=== PATIENT | male | born 1945 | race Caucasian/White ===

== ENCOUNTER 2020-09-03 08:23 | Outpatient (REF) | payer MEDICARE, OTHER, SELFPAY ==
[2020-09-03 11:30] LABS: Hemoglobin 14.8 g/dl (14.0-18.0); Mean Corpuscular HGB Conc 32.9 g/dl (31.0-36.0); Mean Corpuscular Hemoglobin 31.5 pg (27.0-33.0); Mean Corpuscular Volume 95.7 fL (80-98); Mean Platelet Volume 11.5 fL (9.4-12.4); Platelet Count 232 X10*3/uL (160-400); Red Cell Distribution Width 13.8 % (11.0-16.0); White Blood Count 5.2 X10*3/uL (4.8-10.8)
[2020-09-03 11:50] LABS: Estimated Average Glucose 146 mg/dL; Hemoglobin A1c % 6.7 %
[2020-09-03 12:04] LABS: Alanine Aminotransferase 8 U/L (0-40); Albumin Level 3.9 g/dL (3.5-5.0); Alkaline Phosphatase 64 U/L (39-117); Anion Gap 12 (12-20); Aspartate Amino Transferase 12 U/L (5-37); Bilirubin Total 0.4 mg/dL (0.0-1.0); Blood Urea Nitrogen 22 mg/dL (9-16); Calcium 8.8 mg/dL (8.4-10.2); Carbon Dioxide 30 mmol/L (22-29); Chloride 101 mmol/L (96-108); Cholesterol 162 mg/dL; Estimated Glomerular Filt Rate 49; Glucose Fasting 117 mg/dL (60-99); HDL Cholesterol 44 mg/dL; LDL Cholesterol Calculated 102 mg/dl; Potassium 4.8 mmol/l (3.3-5.1); Sodium 138 mmol/L (135-145); Total Protein 6.6 g/dL (6.5-8.0); Triglycerides 80 mg/dL
[2020-09-03 12:18] LABS: Creatinine Urine 81.43 mg/dL; Microalbum/Creatinine Ratio Ur 117.8 ug/mg cr
== END 2020-09-03 08:24 | disposition home or self-care (01) ==
LOC: HO.HMGCLDS 08:23
PROVIDERS: PCP Internal Medicine; Visit Provider Internal Medicine
DX: J42 Unspecified chronic bronchitis (principal); I12.9 Hypertensive chronic kidney disease with stage 1 through stage 4 chronic kidney disease, or unspecified chronic kidney disease; E11.22 Type 2 diabetes mellitus with diabetic chronic kidney disease; N18.30 Chronic kidney disease, stage 3 unspecified; E78.2 Mixed hyperlipidemia
CPT/HCPCS: 36415; 80053; 80061; 82043; 83036; 85027

== ENCOUNTER 2021-02-20 08:21 | Outpatient (REF) | payer MEDICARE, OTHER, SELFPAY ==
[2021-02-20 11:15] LABS: MANUAL DIFF FLAG NO
[2021-02-20 11:27] LABS: Basophils Absolute Auto 0.1 X10*3/uL (0.0-0.2); Eosinophils Absolute Auto 0.4 X10*3/uL (0.0-0.4); Eosinophils Percent Auto 6.4 % (0-4); Hematocrit 44.7 % (42-52); Hemoglobin 14.5 g/dl (14.0-18.0); Imm Gran Abs Auto 0.02 X10*3/uL (0.00-0.03); Imm Gran Pct Auto 0.3 % (0.0-0.4); Lymphocytes Absolute Auto 0.9 X10*3/uL (1.2-4.9); Lymphocytes Percent Auto 14.4 % (20-40); Mean Corpuscular HGB Conc 32.4 g/dl (31.0-36.0); Mean Corpuscular Hemoglobin 31.1 pg (27.0-33.0); Mean Corpuscular Volume 95.9 fL (80-98); Mean Platelet Volume 11.3 fL (9.4-12.4); Monocytes Absolute Auto 0.8 X10*3/uL (0.1-1.2); Monocytes Percent Auto 13.2 % (2-11); Neutrophils Absolute Auto 4.1 X10*3/uL (2.0-8.3); Neutrophils Percent Auto 64.7 % (45-73); Platelet Count 226 X10*3/uL (160-400); Red Blood Count 4.66 X10*6/uL (4.60-5.80); Red Cell Distribution Width 14.3 % (11.0-16.0); White Blood Count 6.3 X10*3/uL (4.8-10.8)
[2021-02-20 12:12] LABS: Alanine Aminotransferase 7 U/L (0-40); Albumin Level 3.9 g/dL (3.5-5.0); Alkaline Phosphatase 57 U/L (39-117); Anion Gap 13 (12-20); Aspartate Amino Transferase 12 U/L (5-37); Bilirubin Total 0.6 mg/dL (0.0-1.0); Blood Urea Nitrogen 28 mg/dL (9-16); Calcium 9.6 mg/dL (8.4-10.2); Carbon Dioxide 28 mmol/L (22-29); Chloride 103 mmol/L (96-108); Cholesterol 171 mg/dL; Estimated Glomerular Filt Rate > 60; Glucose Fasting 133 mg/dL (60-99); HDL Cholesterol 47 mg/dL; LDL Cholesterol Calculated 104 mg/dl; Potassium 5.1 mmol/L (3.3-5.1); Sodium 139 mmol/L (135-145); Total Protein 6.7 g/dL (6.5-8.0); Triglycerides 100 mg/dL
[2021-02-20 12:23] LABS: Estimated Average Glucose 148 mg/dL; Hemoglobin A1c % 6.8 %
[2021-02-20 12:37] LABS: Creatinine Urine 80.36 mg/dL; Microalbum/Creatinine Ratio Ur 172.9 ug/mg cr
== END 2021-02-20 08:22 | disposition home or self-care (01) ==
LOC: HO.HMGCLDS 08:21
PROVIDERS: PCP Internal Medicine; Visit Provider Internal Medicine
DX: I12.9 Hypertensive chronic kidney disease with stage 1 through stage 4 chronic kidney disease, or unspecified chronic kidney disease (principal); E11.22 Type 2 diabetes mellitus with diabetic chronic kidney disease; N18.30 Chronic kidney disease, stage 3 unspecified; J44.9 Chronic obstructive pulmonary disease, unspecified
CPT/HCPCS: 36415; 80053; 80061; 82043; 83036; 85025

== ENCOUNTER 2021-07-24 08:17 | Outpatient (REF) | payer MEDICARE, OTHER, SELFPAY ==
[2021-07-24 11:34] LABS: Estimated Average Glucose 151 mg/dL; Hemoglobin A1c % 6.9 %
[2021-07-24 11:59] LABS: Alanine Aminotransferase 12 U/L (0-40); Albumin Level 3.8 g/dL (3.5-5.0); Alkaline Phosphatase 65 U/L (39-117); Anion Gap 10 (12-20); Aspartate Amino Transferase 11 U/L (5-37); Bilirubin Total 0.6 mg/dL (0.0-1.0); Blood Urea Nitrogen 20 mg/dL (9-16); Carbon Dioxide 31 mmol/L (22-29); Chloride 105 mmol/L (96-108); Estimated Glomerular Filt Rate > 60; Glucose Fasting 126 mg/dL (60-99); Potassium 4.4 mmol/L (3.3-5.1); Sodium 142 mmol/L (135-145); Total Protein 6.4 g/dL (6.5-8.0)
== END 2021-07-24 08:18 | disposition home or self-care (01) ==
LOC: HO.HMGCLDS 08:17
PROVIDERS: PCP Internal Medicine; Visit Provider Internal Medicine
DX: I12.9 Hypertensive chronic kidney disease with stage 1 through stage 4 chronic kidney disease, or unspecified chronic kidney disease (principal); N18.30 Chronic kidney disease, stage 3 unspecified; E11.22 Type 2 diabetes mellitus with diabetic chronic kidney disease; J44.9 Chronic obstructive pulmonary disease, unspecified
CPT/HCPCS: 36415; 80053; 83036

== ENCOUNTER 2021-09-02 10:50 | Outpatient (REF) | payer MEDICARE, OTHER, SELFPAY ==
[2021-09-02 14:24] LABS: Anion Gap 12 (12-20); Blood Urea Nitrogen 29 mg/dL (9-16); Calcium 9.5 mg/dL (8.4-10.2); Carbon Dioxide 29 mmol/L (22-29); Chloride 105 mmol/L (96-108); Estimated Glomerular Filt Rate > 60; Glucose Random 236 mg/dL (60-115); Potassium 4.4 mmol/L (3.3-5.1); Sodium 142 mmol/L (135-145)
== END 2021-09-02 10:51 | disposition home or self-care (01) ==
LOC: HO.HMGCLDS 10:50
PROVIDERS: PCP Internal Medicine; Visit Provider Internal Medicine
DX: E11.9 Type 2 diabetes mellitus without complications (principal); N18.30 Chronic kidney disease, stage 3 unspecified
CPT/HCPCS: 36415; 80048

== ENCOUNTER 2021-11-17 08:20 | Outpatient (REF) | payer MEDICARE, OTHER, SELFPAY ==
[2021-11-17 11:35] LABS: Hematocrit 46.6 % (42.0-52.0); Hemoglobin 15.1 g/dl (14.0-18.0); Mean Corpuscular HGB Conc 32.4 g/dl (31.0-36.0); Mean Corpuscular Hemoglobin 31.3 pg (27.0-33.0); Mean Corpuscular Volume 96.5 fL (80.0-98.0); Mean Platelet Volume 11.5 fL (9.4-12.4); Platelet Count 257 X10*3/uL (160-400); Red Blood Count 4.83 X10*6/uL (4.60-5.80); Red Cell Distribution Width 13.7 % (11.0-16.0); White Blood Count 6.2 X10*3/uL (4.8-10.8)
[2021-11-17 12:15] LABS: Alanine Aminotransferase 16 U/L (0-40); Albumin Level 3.7 g/dL (3.5-5.0); Alkaline Phosphatase 56 U/L (39-117); Anion Gap 12 (12-20); Aspartate Amino Transferase 12 U/L (5-37); Bilirubin Total 0.5 mg/dL (0.0-1.0); Blood Urea Nitrogen 26 mg/dL (9-16); Calcium 9.6 mg/dL (8.4-10.2); Carbon Dioxide 31 mmol/L (22-29); Chloride 102 mmol/L (96-108); Estimated Glomerular Filt Rate 59; Glucose Fasting 130 mg/dL (60-99); Sodium 140 mmol/L (135-145); Total Protein 6.5 g/dL (6.5-8.0)
[2021-11-17 12:18] LABS: Estimated Average Glucose 154 mg/dL
[2021-11-17 12:21] LABS: Creatinine Urine 78.25 mg/dL; Microalbum/Creatinine Ratio Ur 187.8 ug/mg cr
[2021-11-17 12:22] LABS: Prostate Specific Antigen Scr 4.42 ng/mL (<0.05-4.0)
== END 2021-11-17 08:21 | disposition home or self-care (01) ==
LOC: HO.HMGCLDS 08:20
PROVIDERS: PCP Internal Medicine; Visit Provider Internal Medicine
DX: E11.22 Type 2 diabetes mellitus with diabetic chronic kidney disease (principal); I12.9 Hypertensive chronic kidney disease with stage 1 through stage 4 chronic kidney disease, or unspecified chronic kidney disease; N18.30 Chronic kidney disease, stage 3 unspecified; J44.9 Chronic obstructive pulmonary disease, unspecified; Z12.5 Encounter for screening for malignant neoplasm of prostate
CPT/HCPCS: 36415; 80053; 82043; 83036; 84153; 85027

== ENCOUNTER 2022-01-19 11:10 | Outpatient (REF) | payer MEDICARE, OTHER, SELFPAY ==
--- NOTE | ~2022-01-19 | US_ITS ---
EXAMINATION: US EXTRACRANIAL CAROTID DUPLEX, BILATERAL CLINICAL INFORMATION: Hypertension. Diabetes. COMPARISON: None TECHNIQUE: Real-time ultrasound and Doppler techniques (integrating B-mode 2-D vascular images, Doppler spectral analysis and color-flow Doppler imaging) were utilized to interrogate the extracranial carotid arteries, the vertebral arteries and proximal subclavian arteries bilaterally. The degree of stenosis is determined by criteria similar to NASCET. FINDINGS: Right Side: 1. There is minimal atherosclerotic plaque seen in the bifurcation/proximal ICA region. 2. The common carotid artery PSV proximally is 87 cm/s and distally 57 cm/s. 3. The proximal internal carotid artery velocities are 79 cm/s systolic and 22 cm/s diastolic. 4. The proximal external carotid artery PSV is 89 cm/s. 5. The vertebral artery shows antegrade flow. 6. The subclavian artery waveforms are normal. Left Side: 1. There is minimal atherosclerotic plaque seen in the bifurcation/proximal ICA region. 2. The common carotid artery PSV proximally is 80 cm/s and distally 76 cm/s. 3. The proximal internal carotid artery velocities are 56 cm/s systolic and 12 cm/s diastolic. 4. The proximal external carotid artery PSV is 98 cm/s. 5. The vertebral artery shows antegrade flow. 6. The subclavian artery waveforms are normal. US/US carotid duplex BI IMPRESSION: 1. RIGHT: Minimal, non-hemodynamically significant stenosis of the proximal right internal carotid artery corresponding to a 0-49% stenosis by velocity criteria. 2. LEFT: Minimal, non-hemodynamically significant stenosis of the proximal left internal carotid artery corresponding to a 0-49% stenosis by velocity criteria.
== END 2022-01-19 11:11 | disposition home or self-care (01) ==
LOC: HO.US 11:10
PROVIDERS: Visit Provider Internal Medicine
DX: R09.89 Other specified symptoms and signs involving the circulatory and respiratory systems (principal)
CPT/HCPCS: 93880

== ENCOUNTER 2022-03-26 08:51 | Outpatient (REF) | payer MEDICARE, OTHER, SELFPAY ==
--- NOTE | ~2022-03-26 | US_ITS ---
EXAMINATION: US VENOUS ULTRASOUND WITH DOPPLER LOWER EXTREMITY, RIGHT CLINICAL INFORMATION: Right leg swelling. COMPARISON: None TECHNIQUE: Ultrasound of the deep veins is performed from the hip to the calf with compression sonography and color and pulse Doppler assessment. Spectral analysis with color-flow imaging is performed. FINDINGS: There is normal venous compression and respiratory variation and augmented flow. The visualized common femoral vein, superficial femoral vein, profunda femoral vein, popliteal vein, and the trifurcation region shows no evidence of deep venous thrombosis. No Farah's cyst is seen. US/US venous duplex LE RT IMPRESSION: No DVT demonstrated in the right lower extremity.
== END 2022-03-26 08:52 | disposition home or self-care (01) ==
LOC: HO.HMGCX 08:51
PROVIDERS: Visit Provider Internal Medicine
DX: M79.661 Pain in right lower leg (principal); M79.89 Other specified soft tissue disorders
CPT/HCPCS: 93971

== ENCOUNTER 2022-03-31 08:31 | Outpatient (REF) | payer MEDICARE, OTHER, SELFPAY ==
[2022-03-31 11:16] LABS: MANUAL DIFF FLAG NO
[2022-03-31 11:23] LABS: Basophils Absolute Auto 0.1 X10*3/uL (0.0-0.2); Basophils Percent Auto 1.1 % (0-2); Eosinophils Absolute Auto 0.5 X10*3/uL (0.0-0.4); Eosinophils Percent Auto 7.7 % (0-4); Hematocrit 47.9 % (42.0-52.0); Hemoglobin 15.2 g/dl (14.0-18.0); Imm Gran Abs Auto 0.02 X10*3/uL (0.00-0.03); Imm Gran Pct Auto 0.3 % (0.0-0.4); Lymphocytes Absolute Auto 0.9 X10*3/uL (1.2-4.9); Lymphocytes Percent Auto 14.2 % (20-40); Mean Corpuscular HGB Conc 31.7 g/dl (31.0-36.0); Mean Corpuscular Hemoglobin 30.2 pg (27.0-33.0); Mean Corpuscular Volume 95.2 fL (80.0-98.0); Monocytes Absolute Auto 0.9 X10*3/uL (0.1-1.2); Monocytes Percent Auto 13.4 % (2-11); Neutrophils Absolute Auto 4.1 x10*3/uL (2.0-8.3); Neutrophils Percent Auto 63.3 % (45-73); Platelet Count 208 X10*3/uL (160-400); Red Blood Count 5.03 X10*6/uL (4.60-5.80); Red Cell Distribution Width 14.6 % (11.0-16.0); White Blood Count 6.5 X10*3/uL (4.8-10.8)
[2022-03-31 11:35] LABS: Estimated Average Glucose 160 mg/dL; Hemoglobin A1c % 7.2 %
[2022-03-31 11:39] LABS: Alanine Aminotransferase 13 U/L (0-40); Alkaline Phosphatase 62 U/L (39-117); Anion Gap 11 (12-20); Aspartate Amino Transferase 16 U/L (5-37); Bilirubin Total 0.6 mg/dL (0.0-1.0); Blood Urea Nitrogen 25 mg/dL (9-16); Carbon Dioxide 32 mmol/L (22-29); Chloride 102 mmol/L (96-108); Estimated Glomerular Filt Rate > 60; Glucose Fasting 141 mg/dL (60-99); Sodium 140 mmol/L (135-145); Total Protein 6.8 g/dL (6.5-8.0); Uric Acid 6.5 mg/dL (3.4-7.0)
[2022-03-31 11:51] LABS: B Type Natriuretic Peptide 23 pg/mL (<100)
== END 2022-03-31 08:32 | disposition home or self-care (01) ==
LOC: HO.HMGCLDS 08:31
PROVIDERS: PCP Internal Medicine; Visit Provider Internal Medicine
DX: J44.9 Chronic obstructive pulmonary disease, unspecified (principal); I12.9 Hypertensive chronic kidney disease with stage 1 through stage 4 chronic kidney disease, or unspecified chronic kidney disease; N18.30 Chronic kidney disease, stage 3 unspecified; E11.22 Type 2 diabetes mellitus with diabetic chronic kidney disease
CPT/HCPCS: 36415; 80053; 83036; 83880; 84550; 85025

== ENCOUNTER 2022-09-17 08:07 | Outpatient (REF) | payer MEDICARE, OTHER, SELFPAY ==
[2022-09-17 11:21] LABS: MANUAL DIFF FLAG NO
[2022-09-17 11:39] LABS: Basophils Absolute Auto 0.1 X10*3/uL (0.0-0.2); Basophils Percent Auto 1.2 % (0-2); Eosinophils Absolute Auto 0.4 X10*3/uL (0.0-0.4); Eosinophils Percent Auto 6.4 % (0-4); Hematocrit 49.6 % (42.0-52.0); Imm Gran Abs Auto 0.03 X10*3/uL (0.00-0.03); Imm Gran Pct Auto 0.5 % (0.0-0.4); Lymphocytes Percent Auto 14.8 % (20-40); Mean Corpuscular HGB Conc 32.3 g/dl (31.0-36.0); Mean Corpuscular Hemoglobin 31.3 pg (27.0-33.0); Mean Corpuscular Volume 96.9 fL (80.0-98.0); Mean Platelet Volume 11.7 fL (9.4-12.4); Monocytes Absolute Auto 0.8 X10*3/uL (0.1-1.2); Monocytes Percent Auto 12.5 % (2-11); Neutrophils Absolute Auto 4.2 x10*3/uL (2.0-8.3); Neutrophils Percent Auto 64.6 % (45-73); Platelet Count 189 X10*3/uL (160-400); Red Blood Count 5.12 X10*6/uL (4.60-5.80); White Blood Count 6.4 X10*3/uL (4.8-10.8)
[2022-09-17 11:52] LABS: Estimated Average Glucose 160 mg/dL; Hemoglobin A1c % 7.2 %
[2022-09-17 12:09] LABS: Creatinine Urine 53.08 mg/dL; Microalbum/Creatinine Ratio Ur 263.7 ug/mg cr
[2022-09-17 12:11] LABS: Alanine Aminotransferase 8 U/L (0-40); Albumin Level 3.9 g/dL (3.5-5.0); Alkaline Phosphatase 79 U/L (39-117); Anion Gap 13 (12-20); Aspartate Amino Transferase 12 U/L (5-37); Bilirubin Total 0.4 mg/dL (0.0-1.0); Blood Urea Nitrogen 32 mg/dL (9-16); Calcium 9.5 mg/dL (8.4-10.2); Carbon Dioxide 30 mmol/L (22-29); Chloride 104 mmol/L (96-108); Cholesterol 179 mg/dL; Estimated Glomerular Filt Rate 58; Glucose Fasting 149 mg/dL (60-99); HDL Cholesterol 53 mg/dL; LDL Cholesterol Calculated 111 mg/dl; Sodium 142 mmol/L (135-145); Total Protein 6.8 g/dL (6.5-8.0); Triglycerides 75 mg/dL
[2022-09-17 12:18] LABS: PSA,Total (Free>4and<10) 3.23 ng/mL (0.00-4.00)
== END 2022-09-17 08:08 | disposition home or self-care (01) ==
LOC: HO.HMGCLDS 08:07
PROVIDERS: PCP Internal Medicine; Visit Provider Internal Medicine
DX: Z12.5 Encounter for screening for malignant neoplasm of prostate (principal); J44.9 Chronic obstructive pulmonary disease, unspecified; I12.9 Hypertensive chronic kidney disease with stage 1 through stage 4 chronic kidney disease, or unspecified chronic kidney disease; E11.22 Type 2 diabetes mellitus with diabetic chronic kidney disease; N18.30 Chronic kidney disease, stage 3 unspecified
CPT/HCPCS: 36415; 80053; 80061; 82043; 83036; 84153; 85025

== ENCOUNTER 2023-01-18 07:54 | Outpatient (REF) | payer MEDICARE, OTHER, SELFPAY ==
[2023-01-18 11:15] LABS: MANUAL DIFF FLAG NO
[2023-01-18 11:40] LABS: Basophils Absolute Auto 0.1 X10*3/uL (0.0-0.2); Basophils Percent Auto 1.1 % (0-2); Eosinophils Absolute Auto 0.5 X10*3/uL (0.0-0.4); Eosinophils Percent Auto 7.6 % (0-4); Hematocrit 49.5 % (42.0-52.0); Hemoglobin 15.7 g/dl (14.0-18.0); Imm Gran Abs Auto 0.02 X10*3/uL (0.00-0.03); Imm Gran Pct Auto 0.3 % (0.0-0.4); Lymphocytes Absolute Auto 1.2 X10*3/uL (1.2-4.9); Lymphocytes Percent Auto 18.5 % (20-40); Mean Corpuscular HGB Conc 31.7 g/dl (31.0-36.0); Mean Corpuscular Hemoglobin 31.5 pg (27.0-33.0); Mean Corpuscular Volume 99.2 fL (80.0-98.0); Mean Platelet Volume 11.8 fL (9.4-12.4); Monocytes Absolute Auto 0.9 X10*3/uL (0.1-1.2); Monocytes Percent Auto 14.2 % (2-11); Neutrophils Absolute Auto 3.7 x10*3/uL (2.0-8.3); Neutrophils Percent Auto 58.3 % (45-73); Platelet Count 181 X10*3/uL (160-400); Red Blood Count 4.99 X10*6/uL (4.60-5.80); Red Cell Distribution Width 14.7 % (11.0-16.0); White Blood Count 6.3 X10*3/uL (4.8-10.8)
[2023-01-18 11:55] LABS: Estimated Average Glucose 151 mg/dL; Hemoglobin A1c % 6.9 %
[2023-01-18 12:14] LABS: Alanine Aminotransferase 10 U/L (0-40); Albumin Level 3.7 g/dL (3.5-5.0); Alkaline Phosphatase 73 U/L (39-117); Anion Gap 13 (12-20); Aspartate Amino Transferase 12 U/L (5-37); Bilirubin Total 0.5 mg/dL (0.0-1.0); Blood Urea Nitrogen 26 mg/dL (9-16); Calcium 9.2 mg/dL (8.4-10.2); Carbon Dioxide 31 mmol/L (22-29); Chloride 104 mmol/L (96-108); Estimated Glomerular Filt Rate > 60; Glucose Fasting 124 mg/dL (60-99); Potassium 4.6 mmol/L (3.3-5.1); Sodium 143 mmol/L (135-145); Total Protein 6.4 g/dL (6.5-8.0)
== END 2023-01-18 07:55 | disposition home or self-care (01) ==
LOC: HO.HMGCLDS 07:54
PROVIDERS: PCP Internal Medicine; Visit Provider Internal Medicine
DX: I12.9 Hypertensive chronic kidney disease with stage 1 through stage 4 chronic kidney disease, or unspecified chronic kidney disease (principal); E11.22 Type 2 diabetes mellitus with diabetic chronic kidney disease; N18.30 Chronic kidney disease, stage 3 unspecified
CPT/HCPCS: 36415; 80053; 83036; 85025

== ENCOUNTER 2023-07-21 07:38 | Outpatient (REF) | payer MEDICARE, OTHER, SELFPAY ==
[2023-07-21 11:15] LABS: MANUAL DIFF FLAG NO
[2023-07-21 11:34] LABS: Basophils Absolute Auto 0.1 X10*3/uL (0.0-0.2); Basophils Percent Auto 1.1 % (0-2); Eosinophils Absolute Auto 0.4 X10*3/uL (0.0-0.4); Eosinophils Percent Auto 5.6 % (0-4); Hematocrit 50.9 % (42.0-52.0); Hemoglobin 16.1 g/dl (14.0-18.0); Imm Gran Abs Auto 0.01 X10*3/uL (0.00-0.03); Imm Gran Pct Auto 0.2 % (0.0-0.4); Lymphocytes Absolute Auto 0.9 X10*3/uL (1.2-4.9); Lymphocytes Percent Auto 14.1 % (20-40); Mean Corpuscular HGB Conc 31.6 g/dl (31.0-36.0); Mean Corpuscular Hemoglobin 31.8 pg (27.0-33.0); Mean Corpuscular Volume 100.6 fL (80.0-98.0); Monocytes Absolute Auto 0.7 X10*3/uL (0.1-1.2); Monocytes Percent Auto 11.8 % (2-11); Neutrophils Absolute Auto 4.2 x10*3/uL (2.0-8.3); Neutrophils Percent Auto 67.2 % (45-73); Platelet Count 193 X10*3/uL (160-400); Red Blood Count 5.06 X10*6/uL (4.60-5.80); Red Cell Distribution Width 14.4 % (11.0-16.0); White Blood Count 6.3 X10*3/uL (4.8-10.8)
[2023-07-21 11:40] LABS: Estimated Average Glucose 143 mg/dL; Hemoglobin A1c % 6.6 % (<6.0)
[2023-07-21 11:56] LABS: Alanine Aminotransferase 8 U/L (0-40); Albumin Level 3.8 g/dL (3.5-5.0); Alkaline Phosphatase 84 U/L (39-117); Anion Gap 12 (12-20); Aspartate Amino Transferase 11 U/L (5-37); Bilirubin Total 0.5 mg/dL (0.0-1.0); Blood Urea Nitrogen 31 mg/dL (9-16); Calcium 9.5 mg/dL (8.4-10.2); Carbon Dioxide 33 mmol/L (22-29); Chloride 104 mmol/L (96-108); Cholesterol 167 mg/dL (<200); Estimated Glomerular Filt Rate 53; Glucose Fasting 136 mg/dL (60-99); HDL Cholesterol 40 mg/dL (>40); LDL Cholesterol Calculated 104 mg/dL (<100); Potassium 4.8 mmol/L (3.3-5.1); Sodium 144 mmol/L (135-145); Total Protein 7.1 g/dL (6.5-8.0); Triglycerides 117 mg/dL (<150)
== END 2023-07-21 07:39 | disposition home or self-care (01) ==
LOC: HO.HMGCLDS 07:38
PROVIDERS: PCP Internal Medicine; Visit Provider Internal Medicine
DX: I12.9 Hypertensive chronic kidney disease with stage 1 through stage 4 chronic kidney disease, or unspecified chronic kidney disease (principal); E11.22 Type 2 diabetes mellitus with diabetic chronic kidney disease; N18.30 Chronic kidney disease, stage 3 unspecified; J44.9 Chronic obstructive pulmonary disease, unspecified
CPT/HCPCS: 36415; 80053; 80061; 83036; 84550; 85025

== ENCOUNTER 2023-07-23 09:00 | Outpatient (AMB) | payer MEDICARE, OTHER, SELFPAY ==
--- NOTE | 2023-07-23 09:02 | A.OFFPC_ITS ---
Vital Signs 07/23/23 09:11 Height 5 ft 5 in Weight 183 lb BMI 30.4 BP 128/62 Blood Pressure Location Lt brachial Position Sitting Pulse 78 Pulse Source Pulse Oximeter Pulse Oximetry (%) 95 Oxygen Delivery Method Nasal Cannula Intake Visit Reasons: 6m follow up Intake Note: Pt is here today for her 6 months f/u Allergies cephalexin Allergy (Unknown, Verified 07/23/23 09:10) itchy all over body morphine Allergy (Unknown, Verified 07/23/23 09:10) Agitated Medication List - Last Reconciled 07/23/23 by Desiree Randall MD albuterol sulfate 90 mcg/actuation 2 puffs PO Q4-6H PRN albuterol sulfate 0.63 mg (3 mL) inhalation QID PRN allopurinol 100 mg PO DAILY amlodipine 5 mg PO BID blood sugar diagnostic (0xdata Verio test strips) check glucose once a day buspirone 10 mg PO BID colchicine (gout) 0.6 mg PO BID dulaglutide (Trulicity) 0.75 mg (0.5 mL) subcut QWEEK dulaglutide (Trulicity) 1.5 mg (0.5 mL) subcut QWEEK fluticasone propion-salmeterol 500-50 mcg/dose (Advair Diskus) 1 inh inhalation BID furosemide 20 mg PO QAM lancets (Tetra Discoveryuch Delica Lancets) use 1 strip to test blood sugar once a day metformin ER 1,500 mg (2 x 750 mg) PO DAILY omeprazole 20 mg PO DAILY ropinirole 2 mg (2 x 1 mg) PO DAILY tiotropium bromide 2.5 mcg/actuation (Spiriva Respimat) 2 inhalations inhalation QAM Tobacco use date assessed: 07/23/23 Fall risk assessment: No Falls in past year Last assessed Fall Risk: 07/23/23 Dental Screening Dental Screen Date: 07/23/23 Did you have a dental visit in the last 12 months?: Yes Did you have a dental problem in the last 6 months where you did not have access to dental care?: No Was dental information given to patient?: Patient has dentist HPI 6m follow up HPI Details Pt presents for f/u COPD restrictive lung disease O2 dependent, HTN, DM 2, CKD 3, PFSH Medical History Carotid artery bruit Type 2 diabetes mellitus CKD (chronic kidney disease), stage III Kyphoscoliosis History of ITP Gout BPH (benign prostatic hyperplasia) HTN (hypertension) Gallstones GERD (gastroesophageal reflux disease) Lung nodules COPD (chronic obstructive pulmonary disease) Surgical History History of colectomy Family History Mother No problems noted. Son No problems noted. Son No problems noted. Daughter No problems noted. Father Diabetes Social History Housing: House Alcohol intake: current Alcohol intake frequency: holidays/special occasions only Patient Tobacco Use Status: Former Tobacco user Years Smoked: 10 e-Cigarette/Vaping Use: Never Used Current occupational status: retired Cognitive needs: No Hearing needs: Yes Vision needs: Yes Questionnaire Thrive Questionnaire Date Thrive assessed: 09/21/22 KAYLYNN-7 AMB Questionnaire KAYLYNN-7 Date KAYLYNN - 7 assessed: 09/21/22 Source: Developed by Drs. Andrew Cordero, Valeri Moscoso, Rafael Washington and colleagues, with an educational surinder from [employer]. Review of Systems Const All systems reviewed & are unremarkable except as noted in HPI and below Reports no additional complaints Eyes Reports no additional complaints ENT Reports no additional complaints Card Reports no additional complaints Resp Reports no additional complaints GI Reports no additional complaints Reports no additional complaints Musc Reports no additional complaints Physical exam (Primary Care) Vital Signs: Last Vital Signs Pulse 78 07/23/23 09:11 BP 128/62 07/23/23 09:11 Pulse Ox 95 07/23/23 09:11 Oxygen Delivery Method Nasal Cannula 07/23/23 09:11 BMI result Body Mass Index 30.4 Tobacco/Smoking Status: Tobacco use Status Tobacco use date assessed 07/23/23 07/23/23 09:13 Patient Tobacco Use Status Former Tobacco user 07/23/23 09:03 e-Cigarette/Vaping Use Never Used 07/23/23 09:03 Thrive Assessment: Date of Thrive Assessment Date Thrive assessed 09/21/22 07/23/23 09:03 Const General: no acute distress HENMT Face and sinus: Yes normal facial exam Throat: Yes posterior oropharynx normal Neck Neck: Yes no lymphadenopathy and Yes supple Resp Effort & Inspection: able to speak in complete sentences Auscultation: diminished lung sounds Cardio Rhythm: regular rhythm Heart sounds: S1 normal heart sound present and S2 normal heart sound present GI Other: colostomy , abd wall hernias Palpation (GI): Soft to palpation Auscultation: normal bowel sounds Extrem Other: 2 + pitting edema b/l Assessment and Plan Assessment & Plan (1) Type 2 diabetes mellitus: Comment: A1C goal less than 7 Code(s): E11.9 - Type 2 diabetes mellitus without complications Plan: A1c is 6.6, continue ADA diet regular physical activity metformin and Trulicity. Follow-up in 6 months with a fasting labs before (2) HTN (hypertension): Comment: BP goal less then 130/80 Code(s): I10 - Essential (primary) hypertension Plan: Continue current medications (3) COPD (chronic obstructive pulmonary disease): Comment: Dr. Ervin PFT 06/27 moderate obstruction, severe restriction due to kyphoscoliosis Code(s): J44.9 - Chronic obstructive pulmonary disease, unspecified Plan: Continue inhalers (4) CKD (chronic kidney disease), stage III: Code(s): N18.30 - Chronic kidney disease, stage 3 unspecified Plan: Avoid NSAIDs monitor renal function (5) Restrictive lung disease due to kyphoscoliosis: Comment: F/U Dr. Davis, on 24 hr O2 supplement Code(s): J98.4 - Other disorders of lung; M41.9 - Scoliosis, unspecified Plan: Continue supplemental O2 (6) Bilateral lower extremity edema: Code(s): R60.0 - Localized edema Plan: Continue furosemide. patient was advised to work compression knee-highs and elevate lower extremities when sitting Orders: Orders Comprehensive [place]. Panel Fast 6 Months E11.9 - Type 2 diabetes mellitus without complications, I10 - Essential (primary) hypertension, J44.9 - Chronic obstructive pulmonary disease, unspecified, J98.4 - Other disorders of lung, M41.9 - Scoliosis, unspecified, N18.30 - Chronic kidney disease, stage 3 unspecified Hemoglobin A1c 6 Months E11.9 - Type 2 diabetes mellitus without complications, I10 - Essential (primary) hypertension, J44.9 - Chronic obstructive pulmonary disease, unspecified, J98.4 - Other disorders of lung, M41.9 - Scoliosis, unspecified, N18.30 - Chronic kidney disease, stage 3 unspecified Complete Blood Count Auto Diff 6 Months E11.9 - Type 2 diabetes mellitus without complications, I10 - Essential (primary) hypertension, J44.9 - Chronic obstructive pulmonary disease, unspecified, J98.4 - Other disorders of lung, M41.9 - Scoliosis, unspecified, N18.30 - Chronic kidney disease, stage 3 unspecified Lipid Panel 6 Months E11.9 - Type 2 diabetes mellitus without complications, I10 - Essential (primary) hypertension, J44.9 - Chronic obstructive pulmonary disease, unspecified, J98.4 - Other disorders of lung, M41.9 - Scoliosis, unspecified, N18.30 - Chronic kidney disease, stage 3 unspecified Medications: New fluticasone propionate 50 mcg/actuation (Flonase Allergy Relief) administer into each nostril 1 spray intranasal DAILY 16 grams 3RF Coding Level of Care Code Est Pt Level 4 (18450) Diagnoses Type 2 diabetes mellitus E11.9 HTN (hypertension) I10 COPD (chronic obstructive pulmonary disease) J44.9 CKD (chronic kidney disease), stage III N18.30 Restrictive lung disease due to kyphoscoliosis J98.4; M41.9 Bilateral lower extremity edema R60.0
[2023-07-23 09:11] VITALS: BP 128/62; PULSE 78; O2SAT 95; BMI 30.4
== END 2023-07-23 10:03 | disposition home or self-care (01) ==
PROVIDERS: Visit Provider Internal Medicine
DX: E11.22 Type 2 diabetes mellitus with diabetic chronic kidney disease (principal); I12.9 Hypertensive chronic kidney disease with stage 1 through stage 4 chronic kidney disease, or unspecified chronic kidney disease; J44.9 Chronic obstructive pulmonary disease, unspecified; N18.30 Chronic kidney disease, stage 3 unspecified; J98.4 Other disorders of lung; M41.9 Scoliosis, unspecified; R60.0 Localized edema
CPT/HCPCS: 99214

== ENCOUNTER 2024-01-21 08:12 | Outpatient (REF) | payer MEDICARE, OTHER, SELFPAY ==
[2024-01-21 10:26] LABS: MANUAL DIFF FLAG NO
[2024-01-21 10:49] LABS: Basophils Absolute Auto 0.1 X10*3/uL (0.0-0.2); Basophils Percent Auto 0.9 % (0-2); Eosinophils Absolute Auto 0.4 X10*3/uL (0.0-0.4); Eosinophils Percent Auto 5.1 % (0-4); Hematocrit 43.4 % (42.0-52.0); Hemoglobin 14.3 g/dl (14.0-18.0); Imm Gran Abs Auto 0.05 X10*3/uL (0.00-0.03); Imm Gran Pct Auto 0.7 % (0.0-0.4); Lymphocytes Absolute Auto 1.1 X10*3/uL (1.2-4.9); Lymphocytes Percent Auto 15.4 % (20-40); Mean Corpuscular HGB Conc 32.9 g/dl (31.0-36.0); Mean Corpuscular Hemoglobin 32.9 pg (27.0-33.0); Mean Platelet Volume 11.5 fL (9.4-12.4); Monocytes Absolute Auto 0.7 X10*3/uL (0.1-1.2); Monocytes Percent Auto 10.6 % (2-11); Neutrophils Absolute Auto 4.6 x10*3/uL (2.0-8.3); Neutrophils Percent Auto 67.3 % (45-73); Platelet Count 244 X10*3/uL (160-400); Red Blood Count 4.34 X10*6/uL (4.60-5.80); Red Cell Distribution Width 13.5 % (11.0-16.0); White Blood Count 6.9 X10*3/uL (4.8-10.8)
[2024-01-21 11:13] LABS: Alanine Aminotransferase 12 U/L (0-40); Albumin Level 3.7 g/dL (3.5-5.0); Alkaline Phosphatase 86 U/L (39-117); Anion Gap 15 (12-20); Aspartate Amino Transferase 14 U/L (5-37); Bilirubin Total 0.6 mg/dL (0.0-1.0); Blood Urea Nitrogen 22 mg/dL (9-16); Calcium 9.7 mg/dL (8.4-10.2); Carbon Dioxide 31 mmol/L (22-29); Chloride 100 mmol/L (96-108); Cholesterol 176 mg/dL (<200); Estimated Glomerular Filt Rate > 60; Glucose Fasting 145 mg/dL (60-99); HDL Cholesterol 39 mg/dL (>40); LDL Cholesterol Calculated 104 mg/dL (<100); Potassium 4.5 mmol/L (3.3-5.1); Sodium 141 mmol/L (135-145); Total Protein 7.1 g/dL (6.5-8.0); Triglycerides 166 mg/dL (<150)
[2024-01-21 11:15] LABS: Estimated Average Glucose 148 mg/dL; Hemoglobin A1c % 6.8 % (<6.0)
== END 2024-01-21 08:13 | disposition home or self-care (01) ==
LOC: HO.HMGCLDS 08:12
PROVIDERS: PCP Internal Medicine; Visit Provider Internal Medicine
DX: I12.9 Hypertensive chronic kidney disease with stage 1 through stage 4 chronic kidney disease, or unspecified chronic kidney disease (principal); E11.22 Type 2 diabetes mellitus with diabetic chronic kidney disease; N18.30 Chronic kidney disease, stage 3 unspecified; J44.9 Chronic obstructive pulmonary disease, unspecified; J98.4 Other disorders of lung; M41.9 Scoliosis, unspecified
CPT/HCPCS: 36415; 80053; 80061; 83036; 85025

== ENCOUNTER 2024-01-25 09:58 | Outpatient (AMB) | payer MEDICARE, OTHER, SELFPAY ==
--- NOTE | 2024-01-25 10:01 | A.OFFPC_ITS ---
Vital Signs 01/25/24 10:05 Height 5 ft 5 in Weight 180 lb BMI 30.0 BP 120/58 L Blood Pressure Location Lt brachial Position Sitting Pulse 80 Pulse Source Pulse Oximeter Pulse Oximetry (%) 92 Oxygen Delivery Method Nasal Cannula Intake Visit Reasons: 6 Month F/U Intake Note: Pt is here today for 6 months follow up visit on labs. Allergies cephalexin Allergy (Unknown, Verified 01/25/24 10:10) itchy all over body morphine Allergy (Unknown, Verified 01/25/24 10:10) Agitated Medication List - Last Reconciled 01/25/24 by Desiree Randall MD albuterol sulfate 90 mcg/actuation 2 puffs PO Q4-6H PRN albuterol sulfate 0.63 mg (3 mL) inhalation QID PRN allopurinol 100 mg PO DAILY amlodipine 5 mg PO BID blood sugar diagnostic (Touch-Writer Verio test strips) check glucose once a day buspirone 10 mg PO BID colchicine 0.6 mg PO BID dulaglutide (Trulicity) 3 mg (0.5 mL) subcut QWEEK fluticasone propion-salmeterol 500-50 mcg/dose (Advair Diskus) 1 inh inhalation BID fluticasone propionate 50 mcg/actuation (Flonase Allergy Relief) 1 spray intranasal DAILY furosemide 20 mg PO QAM lancets one a day lancets (PhonologicsTouch Delica Plus Lancet) Test blood sugar once per day metformin ER 1,500 mg (2 x 750 mg) PO DAILY nebulizers As directed omeprazole 20 mg PO DAILY ropinirole 2 mg (2 x 1 mg) PO DAILY sertraline (Zoloft) 25 mg PO DAILY tiotropium bromide 2.5 mcg/actuation (Spiriva Respimat) 2 inhalations inhalation QAM Tobacco use date assessed: 01/25/24 Fall risk assessment: No Falls in past year Last assessed Fall Risk: 01/25/24 Dental Screening Dental Screen Date: 07/23/23 Did you have a dental visit in the last 12 months?: Yes Did you have a dental problem in the last 6 months where you did not have access to dental care?: No Was dental information given to patient?: Patient has dentist HPI 6 Month F/U HPI Details Patient presents for the follow-up of type 2 diabetes hypertension chronic kidney disease stage 3 oxygen-dependent COPD/restrictive lung disease due to kyphoscoliosis. Chronic anxiety stable on current medications. 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 He is getting progressively more short of breath with minimal exertion. [facility], [facility] Medical History Carotid artery bruit Type 2 diabetes mellitus CKD (chronic kidney disease), stage III Kyphoscoliosis History of ITP Gout BPH (benign prostatic hyperplasia) HTN (hypertension) Gallstones GERD (gastroesophageal reflux disease) Lung nodules COPD (chronic obstructive pulmonary disease) Surgical History History of colectomy Family History Mother No problems noted. Son No problems noted. Son No problems noted. Daughter No problems noted. Father Diabetes Social History Housing: House Alcohol intake: current Alcohol intake frequency: holidays/special occasions only Patient Tobacco Use Status: Former Tobacco user Years Smoked: 10 e-Cigarette/Vaping Use: Never Used service: No Current occupational status: retired Cognitive needs: No Hearing needs: Yes Vision needs: Yes Questionnaire PHQ-9 Over the last 2 weeks, how often have you been bothered by any of the following problems? 1. Little interest or pleasure in doing things: not at all 2. Feeling down, depressed, or hopeless: not at all 3. Trouble falling or staying asleep, or sleeping too much: not at all 4. Feeling tired or having little energy: not at all 5. Poor appetite or overeating: not at all 6. Feeling bad about yourself - or that you are a failure or have let yourself or your family down: not at all 7. Trouble concentrating on things, such as reading the newspaper or watching te levision: not at all 8. Moving or speaking so slowly that other people could have noticed. Or the opposite - being so fidgety or restless that you have been moving around a lot more than usual: not at all 9. Thoughts that you would be better off or of hurting yourself in some way: not at all Total score: 0 Depression Screening Interpretation: Negative Depression Screening Done: Yes Source: Developed by Drs. Andrew Cordero, Rafael Padron and colleagues, with an educational surinder from [employer]. Thrive Questionnaire Date Thrive assessed: 01/25/24 I am a: Patient What is your living situation today?: I have a steady place to live Within the past 12 months, did the food you bought not last and you didn't have the money to get more?: Never true Within the past 12 months, did you worry whether your food would run out before you got money to buy more?: Never true Do you have trouble paying for medicines?: No Do you have trouble getting transportation to medical appointments?: No Do you have trouble paying your heating and electricity bill?: No Do you have trouble taking care of your child, family member or friend?: No Do you have trouble with day-to-day activities such as bathing, preparing meals, shopping, managing finances, etc.?: No Are you currently unemployed and looking for a job?: No Are you interested in more education?: No Please select the resources that you would like help with: None THRIVE Score: 0 AUDIT C Alcohol Use Questionnaire (AUDIT-C) 1. How often do you have a drink containing alcohol?: Never 3. How often do you have six or more drinks on one occasion?: Never Total Score: 0 KAYLYNN-7 AMB Questionnaire KAYLYNN-7 Date KAYLYNN - 7 assessed: 01/25/24 Feeling nervous, anxious, or on edge: 0 = Not at all Not being able to stop or control worryin = Not at all Worrying too much about different things: 0 = Not at all Trouble relaxin = Not at all Being so restless that it is hard to sit still: 0 = Not at all Becoming easily annoyed or irritable: 0 = Not at all Feeling afraid as if something awful might happen: 0 = Not at all Total KAYLYNN-7 score (0-4 normal; 5-9 mild; 10-14 moderate; 15-21 severe): 0 Source: Developed by Valeri Valdez Kurt Kroenke and colleagues, with an educational surinder from [employer]. Review of Systems Const All systems reviewed & are unremarkable except as noted in HPI and below Eyes Reports no additional complaints Card Reports no additional complaints Resp Reports no additional complaints GI Reports no additional complaints Reports no additional complaints Physical exam (Primary Care) Vital Signs: Last Vital Signs Pulse 80 01/25/24 10:05 BP 120/58 L 01/25/24 10:05 Pulse Ox 92 01/25/24 10:05 Oxygen Delivery Method Nasal Cannula 01/25/24 10:05 BMI result Body Mass Index 30.0 Tobacco/Smoking Status: Tobacco use Status Tobacco use date assessed 01/25/24 01/25/24 10:13 Patient Tobacco Use Status Former Tobacco user 01/25/24 10:01 e-Cigarette/Vaping Use Never Used 01/25/24 10:01 PHQ-9: PHQ-9 Score PHQ-9: Total score 0 01/25/24 10:13 Depression Screening Interpretation: Negative Thrive Assessment: Date of Thrive Assessment Date Thrive assessed 01/25/24 01/25/24 10:13 Const General: no acute distress HENMT Head: Yes normal to inspection Throat: Yes posterior oropharynx normal Eyes General: appearance normal, both eyes and all related structures Neck Neck: Yes supple Resp Effort & Inspection: normal respiratory effort Auscultation: diminished lung sounds Cardio Rhythm: regular rhythm Heart sounds: S1 normal heart sound present and S2 normal heart sound present GI Inspection: Yes normal to inspection Palpation (GI): Soft to palpation Percussion: Yes normal to percussion Extrem Other: 1+ pitting edema bilaterally Assessment and Plan Assessment & Plan (1) COPD (chronic obstructive pulmonary disease): Comment: Dr. Ervin PFT 06/27 moderate obstruction, severe restriction due to kyphoscoliosis, on supplemental O2 24 hours a day Code(s): J44.9 - Chronic obstructive pulmonary disease, unspecified Plan: Continue current treatment and follow-up with pulmonology (2) CKD (chronic kidney disease), stage III: Code(s): N18.30 - Chronic kidney disease, stage 3 unspecified Plan: Avoid nephrotoxins monitor renal function (3) Type 2 diabetes mellitus: Comment: A1C goal less than 7 Code(s): E11.9 - Type 2 diabetes mellitus without complications Plan: A1c is up to 6.8, ADA diet discussed with the patient increase Trulicity to 3 mg weekly and continue metformin follow-up in 6 months (4) Anxiety: Code(s): F41.9 - Anxiety disorder, unspecified Plan: Continue current medications Orders: Orders Complete Blood Count Auto Diff 6 Months E11.9 - Type 2 diabetes mellitus without complications, F41.9 - Anxiety disorder, unspecified, N18.30 - Chronic kidney disease, stage 3 unspecified Hemoglobin A1c 6 Months E11.9 - Type 2 diabetes mellitus without complications, F41.9 - Anxiety disorder, unspecified, N18.30 - Chronic kidney disease, stage 3 unspecified Comprehensive [place]. Panel Fast 6 Months E11.9 - Type 2 diabetes mellitus without complications, F41.9 - Anxiety disorder, unspecified, N18.30 - Chronic kidney disease, stage 3 unspecified Lipid Panel 6 Months E11.9 - Type 2 diabetes mellitus without complications, F41.9 - Anxiety disorder, unspecified, N18.30 - Chronic kidney disease, stage 3 unspecified Medications: New nebulizers As directed 1 ea 0RF J44.9 - Chronic obstructive pulmonary disease, unspecified dulaglutide (Trulicity) 3 mg (0.5 mL) subcut QWEEK 6 mL 2RF Refilled albuterol sulfate 0.63 mg (3 mL) inhalation QID PRN 90 mL 4RF shortness of breath or wheezing albuterol sulfate 0.63 mg (3 mL) inhalation QID PRN 90 mL 4RF shortness of breath or wheezing Discontinued dulaglutide (Trulicity) Discontinued Reason: Change Referral Type 1.5 mg (0.5 mL) subcut QWEEK 6 mL 3RF Coding Level of Care Code Est Pt Level 4 (24729) Diagnoses COPD (chronic obstructive pulmonary disease) J44.9 CKD (chronic kidney disease), stage III N18.30 Type 2 diabetes mellitus E11.9 Anxiety F41.9
[2024-01-25 10:05] VITALS: BP 120/58; PULSE 80; O2SAT 92
== END 2024-01-25 10:48 | disposition home or self-care (01) ==
PROVIDERS: PCP Internal Medicine; Visit Provider Internal Medicine
DX: E11.22 Type 2 diabetes mellitus with diabetic chronic kidney disease (principal); N18.30 Chronic kidney disease, stage 3 unspecified; J44.9 Chronic obstructive pulmonary disease, unspecified; F41.9 Anxiety disorder, unspecified
CPT/HCPCS: 99214

== ENCOUNTER 2024-07-28 10:29 | Outpatient (REF) | payer MEDICARE, OTHER, SELFPAY ==
[2024-07-28 13:02] LABS: MANUAL DIFF FLAG NO
[2024-07-28 13:10] LABS: Basophils Absolute Auto 0.1 X10*3/uL (0.0-0.2); Basophils Percent Auto 1.1 % (0-2); Eosinophils Absolute Auto 0.4 X10*3/uL (0.0-0.4); Eosinophils Percent Auto 4.5 % (0-4); Hematocrit 45.2 % (42.0-52.0); Hemoglobin 14.5 g/dl (14.0-18.0); Imm Gran Abs Auto 0.06 X10*3/uL (0.00-0.03); Imm Gran Pct Auto 0.7 % (0.0-0.4); Lymphocytes Absolute Auto 1.1 X10*3/uL (1.2-4.9); Lymphocytes Percent Auto 13.4 % (20-40); Mean Corpuscular HGB Conc 32.1 g/dl (31.0-36.0); Mean Corpuscular Hemoglobin 32.3 pg (27.0-33.0); Mean Corpuscular Volume 100.7 fL (80.0-98.0); Mean Platelet Volume 11.3 fL (9.4-12.4); Monocytes Absolute Auto 0.8 X10*3/uL (0.1-1.2); Monocytes Percent Auto 10.1 % (2-11); NRBC Pct Auto 0.2 /100WBC (0.0-0.2); Neutrophils Absolute Auto 5.8 x10*3/uL (2.0-8.3); Neutrophils Percent Auto 70.2 % (45-73); Platelet Count 267 X10*3/uL (160-400); Red Blood Count 4.49 X10*6/uL (4.60-5.80); Red Cell Distribution Width 14.2 % (11.0-16.0); White Blood Count 8.3 X10*3/uL (4.8-10.8)
[2024-07-28 13:37] LABS: Alanine Aminotransferase 13 U/L (0-40); Albumin Level 3.8 g/dL (3.5-5.0); Alkaline Phosphatase 88 U/L (39-117); Anion Gap 12 (12-20); Aspartate Amino Transferase 17 U/L (5-37); Bilirubin Total 0.4 mg/dL (0.0-1.0); Blood Urea Nitrogen 25 mg/dL (9-16); Calcium 9.1 mg/dL (8.4-10.2); Carbon Dioxide 32 mmol/L (22-29); Chloride 100 mmol/L (96-108); Cholesterol 173 mg/dL (<200); Estimated Glomerular Filt Rate > 60; Glucose Fasting 140 mg/dL (60-99); HDL Cholesterol 40 mg/dL (>40); LDL Cholesterol Calculated 104 mg/dL (<100); Potassium 4.8 mmol/L (3.3-5.1); Sodium 139 mmol/L (135-145); Total Protein 7.2 g/dL (6.5-8.0); Triglycerides 147 mg/dL (<150)
[2024-07-28 13:46] LABS: Estimated Average Glucose 143 mg/dL; Hemoglobin A1C 253.5228 umol/L; Hemoglobin A1c % 6.6 % (<6.0); Total Hemoglobin (HGBA1C) 5202.4148 umol/L
== END 2024-07-28 10:30 | disposition home or self-care (01) ==
LOC: HO.HMGCLDS 10:29
PROVIDERS: PCP Internal Medicine; Visit Provider Internal Medicine
DX: N18.30 Chronic kidney disease, stage 3 unspecified (principal); E11.9 Type 2 diabetes mellitus without complications; F41.9 Anxiety disorder, unspecified
CPT/HCPCS: 36415; 80053; 80061; 83036; 85025

== ENCOUNTER 2024-08-01 09:19 | Outpatient (AMB) | payer MEDICARE, OTHER, SELFPAY ==
--- NOTE | 2024-08-01 09:24 | A.OFFPC_ITS ---
Vital Signs 08/01/24 09:28 Height 5 ft 5 in Weight 179 lb BMI 29.8 BP 134/70 Blood Pressure Location Lt brachial Position Sitting Pulse 82 Pulse Source Pulse Oximeter Pulse Oximetry (%) 94 Oxygen Delivery Method Nasal Cannula Intake Visit Reasons: 6 month follow up Intake Note: Ptv is here today for 6 months follow up visit. Allergies cephalexin Allergy (Unknown, Verified 08/01/24 09:32) itchy all over body morphine Allergy (Unknown, Verified 08/01/24 09:32) Agitated Tobacco use date assessed: 08/01/24 Fall risk assessment: No Falls in past year Last assessed Fall Risk: 08/01/24 Dental Screening Dental Screen Date: 08/01/24 Did you have a dental visit in the last 12 months?: No Did you have a dental problem in the last 6 months where you did not have access to dental care?: No Was dental information given to patient?: Patient declined HPI 6 month follow up HPI Details Pt presents for f/u of HTN, type 2 diabetes O2 dependent COPD and restrictive lung disease chronic kidney disease stage 3 and anxiety stable on current medications. [facility] Medical History Carotid artery bruit Type 2 diabetes mellitus CKD (chronic kidney disease), stage III Kyphoscoliosis History of ITP Gout BPH (benign prostatic hyperplasia) HTN (hypertension) Gallstones GERD (gastroesophageal reflux disease) Lung nodules COPD (chronic obstructive pulmonary disease) Surgical History History of colectomy Family History Mother No problems noted. Son No problems noted. Son No problems noted. Daughter No problems noted. Father Diabetes Social History Housing: House Alcohol intake: current Alcohol intake frequency: holidays/special occasions only Patient Tobacco Use Status: Former Tobacco user Years Smoked: 10 e-Cigarette/Vaping Use: Never Used service: No Current occupational status: retired Cognitive needs: No Hearing needs: Yes Vision needs: Yes Questionnaire PHQ-9 Over the last 2 weeks, how often have you been bothered by any of the following problems? 1. Little interest or pleasure in doing things: not at all 2. Feeling down, depressed, or hopeless: not at all 3. Trouble falling or staying asleep, or sleeping too much: not at all 4. Feeling tired or having little energy: not at all 5. Poor appetite or overeating: not at all 6. Feeling bad about yourself - or that you are a failure or have let yourself or your family down: not at all 7. Trouble concentrating on things, such as reading the newspaper or watching television: not at all 8. Moving or speaking so slowly that other people could have noticed. Or the opposite - being so fidgety or restless that you have been moving around a lot more than usual: not at all 9. Thoughts that you would be better off or of hurting yourself in some way: not at all Total score: 0 Depression Screening Interpretation: Negative Depression Screening Done: Yes 16844 - PHQ-9 Billing: Yes Source: Developed by Drs. Andrew Cordero, Valeri Moscoso, Rafael Washington and colleagues, with an educational surinder from [employer]. Thrive Questionnaire Date Thrive assessed: 01/25/24 I am a: Patient What is your living situation today?: I have a steady place to live Within the past 12 months, did the food you bought not last and you didn't have the money to get more?: Never true Within the past 12 months, did you worry whether your food would run out before you got money to buy more?: Never true Do you have trouble paying for medicines?: No Do you have trouble getting transportation to medical appointments?: No Do you have trouble paying your heating and electricity bill?: No Do you have trouble taking care of your child, family member or friend?: No Do you have trouble with day-to-day activities such as bathing, preparing meals, shopping, managing finances, etc.?: No Are you currently unemployed and looking for a job?: No Are you interested in more education?: No Please select the resources that you would like help with: None Currently or been in a relationship where the following occur: No concerns reported THRIVE Score: 0 AUDIT C Alcohol Use Questionnaire (AUDIT-C) 1. How often do you have a drink containing alcohol?: Never 3. How often do you have six or more drinks on one occasion?: Never Total Score: 0 KAYLYNN-7 AMB Questionnaire KAYLYNN-7 Date KAYLYNN - 7 assessed: 08/01/24 Feeling nervous, anxious, or on edge: 0 = Not at all Not being able to stop or control worryin = Not at all Worrying too much about different things: 0 = Not at all Trouble relaxin = Not at all Being so restless that it is hard to sit still: 0 = Not at all Becoming easily annoyed or irritable: 0 = Not at all Feeling afraid as if something awful might happen: 0 = Not at all Total KAYLYNN-7 score (0-4 normal; 5-9 mild; 10-14 moderate; 15-21 severe): 0 Source: Developed by Drs. Andrew Cordero, Valeri Moscoso, Rafael Washington and colleagues, with an educational surinder from [employer]. Review of Systems Const All systems reviewed & are unremarkable except as noted in HPI and below ENT Reports no additional complaints Card Reports no additional complaints Resp Reports no additional complaints GI Reports no additional complaints Reports no additional complaints Physical exam (Primary Care) Vital Signs: Last Vital Signs Pulse 82 08/01/24 09:28 BP 134/70 08/01/24 09:28 Pulse Ox 94 08/01/24 09:28 Oxygen Delivery Method Nasal Cannula 08/01/24 09:28 BMI result Body Mass Index 29.8 Tobacco/Smoking Status: Tobacco use Status Tobacco use date assessed 08/01/24 08/01/24 09:36 Patient Tobacco Use Status Former Tobacco user 08/01/24 09:26 e-Cigarette/Vaping Use Never Used 08/01/24 09:26 PHQ-9: PHQ-9 Score PHQ-9: Total score 0 08/01/24 09:37 Depression Screening Interpretation: Negative Thrive Assessment: Date of Thrive Assessment Date Thrive assessed 01/25/24 08/01/24 09:26 Currently or been in a relationship where the following occur: No concerns reported Const General: no acute distress HENMT Head: Yes normal to inspection Mouth: Normal oral and palatal mucosa present Resp Effort & Inspection: normal respiratory effort Auscultation: diminished lung sounds Cardio Rhythm: regular rhythm Heart sounds: S1 normal heart sound present and S2 normal heart sound present GI Inspection: Yes normal to inspection Palpation (GI): Soft to palpation Extrem Other: 1+ pitting edema bilaterally Coding Level of Care Code Est Pt Level 4 (61937) Complex EM visit Add On G2211 Diagnoses Macrocytic anemia D53.9 COPD (chronic obstructive pulmonary disease) J44.9 HTN (hypertension) I10 CKD (chronic kidney disease), stage III N18.30 Type 2 diabetes mellitus E11.9 Additional Codes PHQ-9 - 15837 - PHQ-9 Billing: Yes ([id number]) Assessment & Plan Assessment & Plan (1) Macrocytic anemia: Code(s): D53.9 - Nutritional anemia, unspecified Category: Medical Plan: Check vitamin B12 and folic acid level (2) COPD (chronic obstructive pulmonary disease): Comment: Dr. Ervin PFT 06/27 moderate obstruction, severe restriction due to kyphoscoliosis, on supplemental O2 24 hours a day Code(s): J44.9 - Chronic obstructive pulmonary disease, unspecified Category: Medical Plan: Continue inhalers and supplemental oxygen (3) HTN (hypertension): Comment: BP goal less then 130/80 Code(s): I10 - Essential (primary) hypertension Category: Medical Plan: Continue current medications (4) CKD (chronic kidney disease), stage III: Code(s): N18.30 - Chronic kidney disease, stage 3 unspecified Category: Medical Plan: Avoid nephrotoxins monitor renal function (5) Type 2 diabetes mellitus: Comment: A1C goal less than 7 Code(s): E11.9 - Type 2 diabetes mellitus without complications Category: Medical Plan: A1c is 6.6, continue current medications ADA diet follow-up in 6 months with a fasting labs before Orders: Orders Complete Blood Count Auto Diff 6 Months E11.9 - Type 2 diabetes mellitus without complications, I10 - Essential (primary) hypertension, J44.9 - Chronic obstructive pulmonary disease, unspecified, N18.30 - Chronic kidney disease, stage 3 unspecified Vitamin B12 and Folate Today D53.9 - Nutritional anemia, unspecified Comprehensive [place]. Panel Fast 6 Months E11.9 - Type 2 diabetes mellitus without complications, I10 - Essential (primary) hypertension, J44.9 - Chronic obstructive pulmonary disease, unspecified, N18.30 - Chronic kidney disease, stage 3 unspecified Lipid Panel 6 Months E11.9 - Type 2 diabetes mellitus without complications, I10 - Essential (primary) hypertension, J44.9 - Chronic obstructive pulmonary disease, unspecified, N18.30 - Chronic kidney disease, stage 3 unspecified Hemoglobin A1c 6 Months E11.9 - Type 2 diabetes mellitus without complications, I10 - Essential (primary) hypertension, J44.9 - Chronic obstructive pulmonary disease, unspecified, N18.30 - Chronic kidney disease, stage 3 unspecified Microalbumin, Random (w Creat) 6 Months E11.9 - Type 2 diabetes mellitus without complications, I10 - Essential (primary) hypertension, J44.9 - Chronic o bstructive pulmonary disease, unspecified, N18.30 - Chronic kidney disease, stage 3 unspecified
[2024-08-01 09:28] VITALS: BP 134/70; PULSE 82; O2SAT 94; BMI 29.8
== END 2024-08-01 09:52 | disposition home or self-care (01) ==
PROVIDERS: PCP Internal Medicine; Visit Provider Internal Medicine
DX: I12.9 Hypertensive chronic kidney disease with stage 1 through stage 4 chronic kidney disease, or unspecified chronic kidney disease (principal); J44.9 Chronic obstructive pulmonary disease, unspecified; N18.30 Chronic kidney disease, stage 3 unspecified; E11.9 Type 2 diabetes mellitus without complications; D53.9 Nutritional anemia, unspecified

== ENCOUNTER 2024-08-01 09:19 | Outpatient (REF) | payer MEDICARE, OTHER, SELFPAY ==
[2024-08-01 14:47] LABS: Folate 10.7 ng/mL (> or = 4.0); Vitamin B12 572 pg/mL (200-900)
== END 2024-08-01 09:20 | disposition home or self-care (01) ==
LOC: HO.HMGCLDS 09:19
PROVIDERS: PCP Internal Medicine; Visit Provider Internal Medicine
DX: D53.9 Nutritional anemia, unspecified (principal); E11.22 Type 2 diabetes mellitus with diabetic chronic kidney disease; I12.9 Hypertensive chronic kidney disease with stage 1 through stage 4 chronic kidney disease, or unspecified chronic kidney disease; N18.30 Chronic kidney disease, stage 3 unspecified; J44.9 Chronic obstructive pulmonary disease, unspecified
CPT/HCPCS: 36415; 82607; 82746; 96127; 99212

== ENCOUNTER 2025-01-30 07:18 | Outpatient (REF) | payer MEDICARE, OTHER, SELFPAY ==
--- OUTSIDE RECORDS SUMMARY | 2025-01-30 07:20 | XMS_ITS | Patient Health Record ---
Author Organization [facility] Address [address] [place] [address] Care Team Providers Care Wash Crew Person Name Role Phone Desiree Randall MD Primary Care Provider UnavailDeborah Nazario Unavailable [phone] Corky Gill Unavailable [phone] Allergies Allergen (clinical drug ingredient) Drug/Non Drug Allergy documented on EMR Reaction Allergy Type Onset Date Status cephalexin Cephalexin very itchy rash Drug Allergy Active morphine Morphine makes him unruly Drug Allergy Active Results Component Value Reference Range Notes HEMOGLOBIN A1C (GLYCOHEMOGLO BIN) Reviewed date:01/04/2025 09:13:02 AM Interpretation: Performing Lab: Notes/Report: HEMOGLOBIN A1C % (HH) 7.5 Reason For Referral No Information Medications Medication SIG (Take, Route, Frequency, Duration) Notes Start Date End Date Status Spiriva Respimat 2.5 MCG/ACT Inhalation for 30 Active Trulicity Active Colcrys 0.6 MG 1 tablet Orally Once a day for 30 day(s) 01/05/2013 Not-Taking Advair Diskus 100-50 MCG/DOSE 1 puff Inhalation Twice a day Not-Taking metFORMIN HCl ER 750 MG TAKE 2 TABLETS B Y MOUTH DAILY Oral for 90 Active Mometasone Furoate 0.1 % APPLY TO AREAS ON ARMS TWICE DAILY NEEDED Diagnosis Unavailable External for 20 Active Mupirocin 2 % External for 10 Active Omeprazole 20 MG Oral for 90 A ctive Restasis Active rOPINIRole HCl 1 MG TAKE 2 TABLETS BY MO H DAILY Oral for 90 Active Allopurinol 100 MG TAKE 1 TABLET BY JENNY TH DAILY Oral for 90 Active busPIRone HCl 5 MG TAKE 1 TABLET BY JENNY TH THREE TIMES DAILY Diagnosis Unavailable Oral for 90 Active Colchicine 0.6 MG Oral for 30 Active Furosemide 20 MG Oral for 90 A ctive ProAir HFA Active Combivent 18-103 MCG/ACT 2 puffs Inhalat ion Four times a day Not-Taking MiraLax 1 packet mixed with 8 ounces of fluid Orally Once a day Not-Taking Fluoxetine Not-Takin g amLODIPine Besylate 5 MG 1 tablet Orally Once a day Not-Taking Voltaren 1 % as directed Externally Active PriLOSEC Not-Taking Advair Diskus 500-50 MCG/ACT 1 puff Inhalation Twice a day Active Finasteride Not-Taki ng Albuterol Sulfate HFA 108 (90 Base) MCG/ACT INHALE 2 PUFFS BY MOUTH EVERY 4 TO 6 HOURS NEEDED Inhalation for 50 Active Wellbutrin 100 MG 1 tablet Orally Thre e times a day for 30 day(s) Not-Taking Immunizations Vaccine Route Administration Date Status Comme nts COVID-19 Pfizer BioNTFilmzu Vaccine Unknown 10/06/2021 Administered 1st 10/23/20 2nd 11/13/20 3rd 04/29/21 Influenza Unknown 02/25/2022 Refused Influenza Unknown 05/14/2023 Administered Social History Tobacco Use: Social History Observation Description Date Details (start date - stop date) Never Smoker NA - NA Tobacco use other than smoking: Question Answer Notes Are you an other tobacco user? No Tobacco Control (Standard) Question Answer Notes Tobacco use: Nonsmoker Additional Findings: Tobacco non-user Current no nsmoker AUDIT-C (Standard) Question Answer Notes Did you have a drink containing alcohol in the p ast year? No Points 0 Interpretation Negative Problems Problem Type SNOMED Code ICD Code Onset Dates Problem Status W/U Status Risk Notes Problem Acquired hammer toe of right foot ([id number] ) Other hammer toe(s) (acquired), right foot (M20.41) Active confirmed Response to treatment, Improvemen t Problem Acquired hammer toe of left foot (1596029366427912 ) Other hammer toe(s) (acquired), left foot (M20.42) Active confirmed Response to treatment, Improvemen t Problem Polyneuropathy due to type 2 diabetes mellitus (899230881) Type 2 diabetes mellitus with diabetic polyneuropathy (E11.42) Active confirmed Vital Signs Blood pressure diastolic 80 mm Hg 01/04/2025 Height 5 ft 5 in in 01/04/2025 Blood pressure systolic 130 mm Hg 01/04/2025 Weight 175 lbs 01/04/2025 BMI 29.12 kg/m2 01/04/2025 Procedures Procedure Date Ordered Date Performed Result Body Sit e 76239-IDRI SKIN LESIONS, 2 TO 4 03/02/2024 N/A 35022-CVBBPAR NAIL, 6 OR MORE 08/30/2024 N/A 55988-VLTC SKIN LESIONS, 2 TO 4 08/30/2024 N/A 17834-LRVREPU NAIL, 6 OR MORE 01/04/2025 N/A 04115-DHZW SKIN LESIONS, 2 TO 4 01/04/2025 N/A Encounters Encounter Location Date Provider Diagnosis [address] [address] 03/02/2024 Corky Gill Type 2 diabetes mellitus with diabetic polyneuropathy E11.42 ; Pain in right toe(s) M79.674 ; Tinea unguium B35.1 ; Pain in left toe(s) M79.675 and Xerosis cutis L85.[address] [address] 05/25/2024 Corky Gill Type 2 diabetes mellitus with diabetic polyneuropathy E11.42 ; Pain in right toe(s) M79.674 ; Tinea unguium B35.1 ; Pain in left toe(s) M79.675 and Xerosis cutis L85.[address] [address] 08/30/2024 Deborah Robles Type 2 diabetes mellitus with diabetic polyneuropathy E11.42 and Tinea unguium B35.[address] [address] 01/04/2025 Deborah Robles Type 2 diabetes mellitus with diabetic polyneuropathy E11.42 ; Tinea unguium B35.1 ; Other hammer toe(s) (acquired), right foot M20.41 and Other hammer toe(s) (acquired), left foot M20.[address] [place] [address] 01/04/2025 Deborah Robles Assessments Encounter Date Diagnosis (ICD Code) Assessment Notes Treatment Notes Treatment Clinical Notes Section Notes 03/02/2024 Type 2 diabetes mellitus with diabetic polyneuropathy (ICD-10 - E11.42) 05/25/2024 Type 2 diabetes mellitus with diabetic polyneuropathy (ICD-10 - E11.42) 08/30/2024 Type 2 diabetes mellitus with diabetic polyneuropathy (ICD-10 - E11.42) 08/30/2024 Tinea unguium (ICD-10 - B35.1) 01/04/2025 Type 2 diabetes mellitus with diabetic polyneuropathy (ICD-10 - E11.42) 01/04/2025 Tinea unguium (ICD-10 - B35.1) 05/25/2024 Pain in right toe(s) (ICD-10 - M79.674) 03/02/2024 Pain in right toe(s) (ICD-10 - M79.674) 03/02/2024 Pain in left toe(s) (ICD-10 - M79.675) 05/25/2024 Tinea unguium (ICD-10 - B35.1) 03/02/2024 Tinea unguium (ICD-10 - B35.1) 01/04/2025 Other hammer toe(s) (acquired), right foot (ICD-10 - M20.41) Patient Educated with: DIABETIC FOOT CARE INSTRUCTIONS. pdf (DIABETIC FOOT CARE INSTRUCTIONS. pdf) 01/04/2025 Other hammer toe(s) (acquired), left foot (ICD-10 - M20.42) 05/25/2024 Pain in left toe(s) (ICD-10 - M79.675) 03/02/2024 Xerosis cutis (ICD-10 - L85.3) 05/25/2024 Xerosis cutis (ICD-10 - L85.3) Plan Of Treatment Pending Test Test Name Order Date X ray : Foot, left 2V 01/05/2013 X ray : Foot, right 2V 01/05/2013 X ray : Foot, left 3V 02/25/2022 44742-KWUNIKF NAIL, 6 OR MORE 08/30/2024 62697-EEQXPJJ NAIL, 6 OR MORE 01/04/2025 40710-EHMMTTP NAIL, 1-5 02/25/2022 17304-QDRZ SKIN LESIONS, OVER 4 02/26/20 22 78190-LQQG SKIN LESIONS, OVER 4 01/15/20 15 51418-RKYV SKIN LESIONS, OVER 4 01/13/20 16 76574-LQIF SKIN LESIONS, OVER 4 10/13/19 22 30402-ZGHG SKIN LESIONS, 2 TO 4 01/16/20 14 11564-CLFF SKIN LESIONS, 2 TO 4 03/02/20 24 35376-ZOBB SKIN LESIONS, 2 TO 4 01/05/20 25 77740-OKYS SKIN LESIONS, 2 TO 4 08/30/20 24 K0936-AMYSOTFH DYSTROPHIC NAILS ANY # Z7317-NZYSVRLT DYSTROPHIC NAILS ANY # 11496-NZSMPEQV OF HEMATOMA/FLUID 023 Next Appt Details Provider Name:Deborah Marcelinospencer cartwright, 04/04/2025 03:15:00 PM, [address] [place], [address], Insurance Providers Payer Name Payer Address Payer Phone Subscriber Number Group Number Insured Name Patient Relationship to Insured Coverage Start Date Coverage End Date Medicare National [employer] [address] [facility] [address] [id number] Miki Plummer Self - patient is the insured [facility] [address] [place], [place] [address] [phone] [id number] Miki Plummer Self - patient is the insured Medical (General) History Medical History History ICD Code diverticulosis gall bladder problems Gout hypertension keloids lung disease macular degeneration reflux chicken pox measles mumps transfusions emphysema colostomy Cataracts Kidney disease type II diabetes Surgical History Surgery Date(Month/Year) Hospitalization History Reason Date(Month/Year) [facility]onia [facility]/12/2024
--- OUTSIDE RECORDS SUMMARY | 2025-01-30 07:20 | XMS_ITS ---
Author Organization [facility] Address [address] [address] Care Team Providers Care Sign Out Clerk Name Role Phone Desiree Randall MD Primary Care Provider Deborah Villar Unavailable [phone] Allergies Allergen (clinical drug ingredient) Drug/Non Drug Allergy documented on EMR Reaction Allergy Type Onset Date Status cephalexin Cephalexin very itchy rash Drug Allergy Active morphine Morphine makes him unruly Drug Allergy Active REASON FOR VISIT At Risk Footcare, Toe Irritation, Toe Irritation Medications Medication SIG (Take, Route, Frequency, Duration) Notes Start Date End Date Status Allopurinol 100 MG TAKE 1 TABLET BY JENNY TH DAILY Oral for 90 Active busPIRone HCl 5 MG TAKE 1 TABLET BY JENNY TH THREE TIMES DAILY Diagnosis Unavailable Oral for 90 Active Colchicine 0.6 MG Oral for 30 Active Furosemide 20 MG Oral for 90 A ctive Albuterol Sulfate HFA 108 (90 Base) MCG/ACT INHALE 2 PUFFS BY MOUTH EVERY 4 TO 6 HOURS NEEDED Inhalation for 50 Active Voltaren 1 % as directed Externally Active PriLOSEC Not-Taking Advair Diskus 500-50 MCG/ACT 1 puff Inhalation Twice a day Active Finasteride Not-Taki ng Wellbutrin 100 MG 1 tablet Orally Thre e times a day for 30 day(s) Not-Taking Advair Diskus 100-50 MCG/DOSE 1 puff Inhalation Twice a day Not-Taking Combivent 18-103 MCG/ACT 2 puffs Inhalat ion Four times a day Not-Taking MiraLax 1 packet mixed with 8 ounces of fluid Orally Once a day Not-Taking Fluoxetine Not-Takin g amLODIPine Besylate 5 MG 1 tablet Orally Once a day Not-Taking Spiriva Respimat 2.5 MCG/ACT Inhalation for 30 Active Trulicity Active Colcrys 0.6 MG 1 tablet Orally Once a day for 30 day(s) 01/05/2013 Not-Taking Restasis Active rOPINIRole HCl 1 MG TAKE 2 TABLETS BY MO UTH DAILY Oral for 90 Active ProAir HFA Active metFORMIN HCl ER 750 MG TAKE 2 TABLETS B Y MOUTH DAILY Oral for 90 Active Mometasone Furoate 0.1 % APPLY TO AREAS ON ARMS TWICE DAILY NEEDED Diagnosis Unavailable External for 20 Active Mupirocin 2 % External for 10 Active Omeprazole 20 MG Oral for 90 A ctive Social History Tobacco Use: Social History Observation [...] Problem Acquired hammer toe of right foot (966219814176 9105) Other hammer toe(s) (acquired), right foot (M20.41) Active confirmed Response to treatment,Im provement Problem Acquired hammer toe of left foot ([id number] 9103) Other hammer toe(s) (acquired), left foot (M20.42) Active confirmed Response to treatment,Im provement Vital Signs Height 5 ft 5 in in 01/04/2025 Weight 175 lbs 01/04/2025 BMI 29.12 kg/m2 01/04/2025 Blood pressure systolic 130 mm Hg 01/05/20 25 Blood pressure diastolic 80 mm Hg 025 Procedures Procedure Date Ordered Date Performed Result Body Sit e 35984-ZOKYENG NAIL, 6 OR MORE 01/04/2025 N/A 02583-NEJO SKIN LESIONS, 2 TO 4 01/04/2025 N/A Encounters Encounter Location Date Provider Diagnosis [facility] [address] [place] [address] 01/04/2025 Deborah Robles Type 2 diabetes mellitus with diabetic polyneuropathy E11.42 ; Tinea unguium B35.1 ; Other hammer toe(s) (acquired), right foot M20.41 and Other hammer toe(s) (acquired), left foot M20.42 Assessments Encounter Date Diagnosis (ICD Code) Assessment Notes Treatment Notes Treatment Clinical Notes Section Notes 01/04/2025 Type 2 diabetes mellitus with diabetic polyneuropathy (ICD-10 - E11.42) 01/04/2025 Tinea unguium (ICD-10 - B35.1) 01/04/2025 Other hammer toe(s) (acquired), right foot (ICD-10 - M20.41) Patient Educated with: DIABETIC FOOT CARE INSTRUCTIONS. pdf (DIABETIC FOOT CARE INSTRUCTIONS. pdf) 01/04/2025 Other hammer toe(s) (acquired), left foot (ICD-10 - M20.42) Plan Of Treatment Treatment Notes Assessment Notes Other hammer toe(s) (acquired), right fo ot Patient Educated with: DIABETIC FOOT CARE INSTRUCTIONS.pdf (DIABETIC FOOT CARE INSTRUCTIONS.pdf) Pending Test Test Name Order Date 62236-ZHYUIBC NAIL, 6 OR MORE 01/04/2025 75012-LMTP SKIN LESIONS, 2 TO 4 01/05/20 25 Next Appt Details Follow Up: 3 Months, Reason: Provider Name:Deborah cartwright, 04/04/2025 03:15:00 PM, [address] [place] [address], [id number], Procedure Notes * Category Sub-Category Detail Notes Debride Nail 6-10 Nail debridement Due to the cl inical pathology outlined in the exam findings, performance of this nail treatment is medically necessary as its management by an unskilled/untrained nonprofessional would put this patients foot and overall health at risk. Therefore, debridement to affected nail(s), as described in exam ( TA, T1, T2, T3, T4, T5, T6, T7, T8, T9 ), was performed exclusively by the physician of record to reduce/remove overall nail length, girth, thickness, subungual debris, and necrotic tissue, by manual and/or electrical means through the use of a nail nipper and/or dremel-type grinder set up operator jig, to a more viable healthy nail plate or bed tissue 6-10 nails in total. Silver nitrate was used for any petechial bleeding as necessary. Definitive antifungal treatment options, both pharmaceutical and surgical, have been reviewed and discussed with the patient. The patient solely prefers the use of intermittent/as needed professional debridement services for their nail condition and understands the need for additional periodic treatments to maintain effectiveness in symptomatic relief - 98707 Keratoma Treatment Parring or Cutting o f Benign Hyperkeratotic Lesion(s) (-56) 2-4 Lesions - Due to the at risk nature of the patients medical condition as documented in the exam findings, performance of this keratoderma treatment is medically necessary as its management by an unskilled/untrained nonprofessional would put this patients foot and overall health at risk. Therefore, the benign hyperkeratotic lesions, (2 ) in total, locations as stated and described in the exam ( plantar heels B/L), were pared, and/or cut utilizing a sterile 15 blade, tissue nippers, and/or power dremel instrumentation by the physician of record - 76642 Progress Notes * Miki PLUMMERDOB:1945 (79 yo M)Acc No.[id number]:01/04/2025 Progress Note Patient:?Miki PLUMMER Provider:?Deborah Robles DPM :1945???Age:79 Y???Sex:Male Allen e:01/04/2025 Address:[address] [place], [place] [id number] Pcp:Desiree Randall MD Subjective: * Chief Complaints: * ???At Risk FootcareToe Irrit ationToe Irritation * HPI: ???At Risk footcare:?Pt States Last PCP Visit:?Date?07/14/2024 ???Toe pain:?Location:?B/L feet.?Duration:?several years.?Course:?worse.?Aggravated by:?shoes, any pressure.?Treatments:?Rx shoes , change in shoes.? * ROS:?General/Constitutional:?Nausea?denies.?Vomiting?denies.?Hunger Thirst?denies.?Loss appetite?denies.?Chills?denies.?Fatigue?denies.?Fever?denies.?Night Sweats?denies.?Unexplained weight loss?denies.?Unexplained weight gain?denies.?HEENTM:?Dentures?denies.?Dizziness?denies.?Glasses/contacts?admits.?Retinopathy?ad mits.?Blurred/double vision?denies.?TMJ?denies.?Discharge/drainage?denies.?Implants?denies.?Sore throat?denies.?Dental implants?denies.?Hard of hearing ?admits.?Difficulty chewing/swallowing/speaking?denies.?Nose bleeds?denies.?Sore mouth?denies.?Respiratory:?On Oxygen?admits.?Pneumonia/pleurisy?denies.?Bronchitis?denies.?Emphysema?admits.?C oughing?denies.?Cough blood?denies.?Shortness of breath?admits.?Wheezing?admits.?Cardiovascular:?Pacemaker?denies.?MVP?denies.?WPW?denies.?CHF?denies.?Heart attack?denies.?Septal defect?denies.?Rapid beat?denies.?Chest pain ?denies.?Atrial Fib.?denies.?Murmur/Palpitations?denies.?Gastrointestinal:?Hemorrhoids?denies.?Stomach/Abdominal pain?denies.?Dark blood stool?denies.?Irritable bowel ?denies.?Constipation?denies.?Diarrhea?denies.?Hematology:?Swelling?denies.?Clots?denies.?Varicose Veins?denies.?Bruising?denies.?Bleeding problem?admits.?Genitourinary:?Blood urine?denies.?Frequent/Painfu/urination/bladder control?denies.?Kidney stones?denies.?Infection (UTI)?denies.?Nephropathy?denies.?sex trans dis (STD)?denies.?Prostate?denies.?Musculoskeletal:?Hammertoes?denies.?Bunions?denies.?Back Pain?denies.?Muscle Cramps/ Resting?admits.?Muscle cramps / walking?denies.?Generalized aches and pains?denies.?Weakness?denies.?Integ.:?[place]?denies.?Scars?admits.?Corns/calluses?denies.?Ingrown nails?denies.?Painful nails?denies.?Open Sores?denies.?Rashes?denies.?Neurologic:?Difficulty sleeping?denies.?Brain disorder?denies.?Numbness?denies.?Balance trouble?denies.?Confusion?denies.?Fainting/blackouts?denies.?Tingling?denies.?Tr emors?denies.? * Medical History:? * Surgical History:?Denies Pas t Surgical History * Hospitalization/Major Diagno stic Procedure:?[facility]- Pneumonia 12/12/2024 * Family History:?Mother: dece ased, liver disease, diagnosed with Unspecified essential hypertension.?Father: , foot problems, diagnosed with Diabetic - NIDDM, Unspecified essential hypertension, Family history of arthritis.? * Social History:?Tobacco Use:?Tobacco use other than smoking?Are you an other tobacco user??No ?Tobacco Control (Standard)?Tobacco use:?Nonsmoker ?Additional Findings: Tobacco non-user?Current nonsmoker ???Drugs/Alcohol:?Drugs?Have you used drugs other than those for medical reasons in the past 12 months??No ???Miscellaneous:?Caffeine: yes, frequency:, 2-3 cups per day. ?Children: yes, 3. ?Exercise: yes, gardening, work on [employer]. ?Marital status: . ?Occupation: Retired- [employer]. ???Drug/Alcohol:?AUDIT-C (Standard)?Did you have a drink containing alcohol in the past year??No ?Points?0 ?Interpretation?Negative * Medications:?TakingVoltaren 1 % Gel as directed Externally Advair Diskus 500-50 MCG/ACT Aerosol Powder Breath Activated 1 puff Inhalation Twice a day Albuterol Sulfate HFA 108 (90 Base) MCG/ACT Aerosol Solution INHALE 2 PUFFS BY MOUTH EVERY 4 TO 6 HOURS NEEDED Inhalation Allopurinol 100 MG Tablet TAKE 1 TABLET BY MOUTH DAILY Oral busPIRone HCl 5 MG Tablet TAKE 1 TABLET BY MOUTH THREE TIMES DAILY Diagnosis Unavailable Oral Colchicine 0.6 MG Tablet Oral Furosemide 20 MG Tablet Oral ProAir HFA metFORMIN HCl ER 750 MG Tablet Extended Release 24 Hour TAKE 2 TABLETS BY MOUTH DAILY Oral Mometasone Furoate 0.1 % Cream APPLY TO AREAS ON ARMS TWICE DAILY NEEDED Diagnosis Unavailable External Mupirocin 2 % Ointment External Omeprazole 20 MG Capsule Delayed Release Oral Restasis rOPINIRole HCl 1 MG Tablet TAKE 2 TABLETS BY MOUTH DAILY Oral Spiriva Respimat 2.5 MCG/ACT Aerosol Solution Inhalation Trulicity Taking Voltaren 1 % Gel as directed Externally Taking Advair Diskus 500-50 MCG/ACT Aerosol Powder Breath Activated 1 puff Inhalation Twice a day Taking Albuterol Sulfate HFA 108 (90 Base) MCG/ACT Aerosol Solution INHALE 2 PUFFS BY MOUTH EVERY 4 TO 6 HOURS NEEDED Inhalation Taking Allopurinol 100 MG Tablet TAKE 1 TABLET BY MOUTH DAILY Oral Taking busPIRone HCl 5 MG Tablet TAKE 1 TABLET BY MOUTH THREE TIMES DAILY Diagnosis Unavailable Oral Taking Colchicine 0.6 MG Tablet Oral Taking Furosemide 20 MG Tablet Oral Taking ProAir HFA Taking metFORMIN HCl ER 750 MG Tablet Extended Release 24 Hour TAKE 2 TABLETS BY MOUTH DAILY Oral Taking Mometasone Furoate 0.1 % Cream APPLY TO AREAS ON ARMS TWICE DAILY NEEDED Diagnosis Unavailable External Taking Mupirocin 2 % Ointment External Taking Omeprazole 20 MG Capsule Delayed Release Oral Taking Restasis Taking rOPINIRole HCl 1 MG Tablet TAKE 2 TABLETS BY MOUTH DAILY Oral Taking Spiriva Respimat 2.5 MCG/ACT Aerosol Solution Inhalation Taking Trulicity Not-Taking/PRNColcrys 0.6 MG Tablet 1 tablet Orally Once a day Advair Diskus 100-50 MCG/DOSE Aerosol Powder Breath Activated 1 puff Inhalation Twice a day Combivent 18-103 MCG/ACT Aerosol 2 puffs Inhalation Four times a day MiraLax Packet 1 packet mixed with 8 ounces of fluid Orally Once a day Fluoxetine amLODIPine Besylate 5 MG Tablet 1 tablet Orally Once a day PriLOSEC Finasteride Wellbutrin 100 MG Tablet 1 tablet Orally Three times a day Medication List reviewed and reconciled with the patientNot-Taking/PRN Colcrys 0.6 MG Tablet 1 tablet Orally Once a day Not-Taking/PRN Advair Diskus 100-50 MCG/DOSE Aerosol Powder Breath Activated 1 puff Inhalation Twice a day Not-Taking/PRN Combivent 18-103 MCG/ACT Aerosol 2 puffs Inhalation Four times a day Not-Taking/PRN MiraLax Packet 1 packet mixed with 8 ounces of fluid Orally Once a day Not-Taking/PRN Fluoxetine Not-Taking/PRN amLODIPine Besylate 5 MG Tablet 1 tablet Orally Once a day Not-Taking/PRN PriLOSEC Not-Taking/PRN Finasteride Not-Taking/PRN Wellbutrin 100 MG Tablet 1 tablet Orally Three times a day Medication List reviewed and reconciled with the patient * Allergies:?Cephalexin: very itchy rashMorphine: makes him unrulyyes[Allergies Verified] Objective: * Vitals:?Ht: 5 ft 5 in, Wt:17 5, BMI: 29.12, Shoe size:8.5, BP:130/80mm Hg, BS:148, Wt-k.38 kg. * ???Past Orders: ???Lab:HEMOGLOBIN A1C (GLYCO HEMOGLOBIN) (Order Date - 09/15/2024) (Collection Date & Time - 01/04/2025 09:12 AM) ? Value Reference Range ?HEMOGLOBIN A1C % (HH) 7.5 * Examination: ???Ophthalmology Referral: ?DIABETES EYE EXAM?Procedure Performed:?No ?Findings of Diabetic Eye Exam:?no retinopathy?CQM Exceptions:: ?Hemoglobin A1c not performed?Reason:?No reason specified?Neurological: ?SENSORY:? Neurological exam demonstrates, reduced light touch sensation, reduced sharp/dull pin prick discrimination , B/L, 5.07 monofilament test performed at plantar aspects of 5 varied sites per foot shows sensation, reduced , B/L.?Nails: ?NAILS are:?Elongated, overgrown, dystrophic, lytic, greater than 3mm thick, discolored and friable with crumbly malodorous subungual debris, TA, T1, T2, T3, T4, T5, T6, T7, T8, T9.?Dermatologic: ?SKIN FINDINGS:?Skin exam reveals Keratotic lesion(s) located at plantar heels B/L.?Vascular: ?DP PULSES (B):?2/4, B/L.?PT PULSES (B):? 1/4, B/L.?CAPILLARY FILL TIME:?3 secs. per digit, b/l.?TROPHIC CONDITION-TEXTURE/ELASTICITY/TURGOR/HAIR GROWTH (B):?absent.?TEMPERTURE GRADIENT (C):?warm to cool, proximal to distal.?EDEMA (C):?1/4, Left heel/achilles.?ELEV. PALOR:?absent.?CLAUDICATION (C):?negative, b/l .?REST PAIN:?negative.?VARICOSITIES:?absent.?YUN'S SIGN:?absent, b/l.?PALPABLE CORDS:?absent, b/l.?CLUBBING:?absent.?Orthopedic: ?MUSCLE STRENGTH:?5/5 all groups in a symmetrical fashion, B/L.?DIGITAL DEFORMITIES:?Digital contracture, PIPJ, 2-5 B/L, incompl-reducible to push-up test, no over, nor underlapping,?there is?evidence of shoe producing skin irritation.?FOOTWEAR EVALUATION:?worn, non-supportive, shoe gear properties exacerbate patient's foot/toe deformity.?General Examination: ?GENERAL APPEARANCE:?Reveals a pleasant, alert, well nourished, well- developed, well hydrated individual, who demonstrates proper attention to hygiene/body habitus, and is in no acute distress, Pt serves as own historian for office visit today.?ORIENTED:?person, place, and time.?FOOT EXAM:?Lower Extremity Neurological Exam performed:?Yes Date ?Visual exam of foot performed:?Yes ?Date?01/04/2025 ?Sensory testing performed:?sensations diminished ?Sensory and motor testing performed:?strength normal ?Pedal pulse taking performed:?2+ ?Footwear Evaluation?Footwear Evaluation performed:?Yes??? Assessment: * Assessment: 1.?Type 2 diabetes mellitus with diabetic polyneuropathy - E11.42 (Primary)???2.?Tinea unguium - B35.1???3.?Other hammer toe(s) (acquired), right foot - M20.41???Specify :Chronic problem, Worse (4),Rx Management (4)???4.?Other hammer toe(s) (acquired), left foot - M20.42???Specify :Chronic problem, Worse (4),Rx Management (4)??? Plan: * Treatment: 2.?Other hammer toe(s) (acqu ired), right foot? Notes: Patient Educated with: DIABETIC FOOT CARE INSTRUCTIONS.pdf (DIABETIC FOOT CARE INSTRUCTIONS.pdf)?? * Procedures:?Debride Nail 6-10:?Nail debridement?Due to the clinical pathology outlined in the exam findings, performance of this nail treatment is medically necessary as its management by an unskilled/untrained nonprofessional would put this patients foot and overall health at risk. Therefore, debridement to affected nail(s), as described in exam (?TA, T1, T2, T3, T4, T5, T6, T7, T8, T9 ), was performed exclusively by the physician of record to reduce/remove overall nail length, girth, thickness, subungual debris, and necrotic tissue, by manual and/or electrical means through the use of a nail nipper and/or dremel-type grinder set up operator jig, to a more viable healthy nail plate or bed tissue 6- 10 nails in total. Silver nitrate was used for any petechial bleeding as necessary. Definitive antifungal treatment options, both pharmaceutical and surgical, have been reviewed and discussed with the patient. The patient solely prefers the use of intermittent/as needed professional debridement services for their nail condition and understands the need for additional periodic treatments to maintain effectiveness in symptomatic relief - 80715.?Keratoma Treatment:?Parring or Cutting of Benign Hyperkeratotic Lesion(s)?(-56) 2-4 Lesions - Due to the at risk nature of the patients medical condition as documented in the exam findings, performance of this keratoderma treatment is medically necessary as its management by an unskilled/untrained nonprofessional would put this patients foot and overall health at risk. Therefore, the benign hyperkeratotic lesions, (2 ) in total, locations as stated and described in the exam ( plantar heels B/L), were pared, and/or cut utilizing a sterile 15 blade, tissue nippers, and/or power dremel instrumentation by the physician of record - [id number].? * Procedure Codes:?22548 DEBRI DE NAIL, 6 OR MORE, Modifiers: XS 64284 TRIM SKIN LESIONS, 2 TO 4, Modifiers: XS * Preventive Medicine:? ??Counseling:?Discussion:?-13: Office or other outpatient visit for the evaluation and management of an established patient, which required a medically appropriate history and/or examination and LOW level of DECISION MAKING for: 1 STABLE ACUTE UNCOMPLICATED PROBLEM, 2 OR MORE MINOR PROBLEMS, OR 1 STABLE CHRONIC PROBLEM, THAT POSE(S) A LOW RISK FOR MORBIDITY/MORTALITY. The visit on the day of the encounter encompassed interpreting the data and educating the patient as to the nature of their condition, treatment options available according to their individual PMH, meds, allergies, and overall health/living conditions, as well as any potential risks or complications that may occur from a failure to adhere to, and participate in, the recommended course of therapy. The discussion included a complete verbal, and/or written explanation of the examination results, any x-rays taken, the proposed diagnosis, and outline of the treatment plan. A schedule for future care needs was also explained. The patient verbalized an understanding of the instructions at this time and agreed to be an active participant in their treatment. If the patient should think of any questions or concerns after the visit, I have encouraged the patient to call the office.?Digital Surgery:?Digital surgery was discussed with the patient, We elected to try conservative treatment at the present time, due to the patients medical history and increased asssociated post-operative risks.?Digital Treatment:?HT- I explained to the patient the possible etiologies of Hammertoes, including genetics/foot type/shoegear/activity level/exercise routine and the risks/benefits of all the different treatment options for their pain including: No treatment at all, Rest, Ice, New/supportive/wider/deeper Shoegear, Digital Padding/Strapping/Taping/Bracing/Gel protective sleeves, Foot/Ankle AFO Bracing, Stretching exercises, Deep Tissue Massage, Arch support/shoe inserts with splay metatarsal padding, and Custom orthoses. I insisted that any digital devices be removed daily and not worn overnight for safety. The patient is to carefully examine the toes daily for any skin irritation while using any splinting or padding device. The advantages and disadvantages of each option were discussed and the patients questions re: shoegear, padding, custom vs prefabricated inserts, activity level, and consistency in home treatment regimens for optimal success were answered to their verbally confirmed satisfaction.?Shoe Gear Counseling:?Patient DEFERS recommended Extra Depth Orthopedic pressure-accommodative shoes against medical advice.? ??Screening/Special Tests:?Fall Risk?Screening:?No falls in the past year ?FALLS: Screening for Future Fall Risk?Have you had any falls with injury in the past year??No * Follow Up:?3 Months * Images: * Sign off status: Completed true * Provider:?Deborah Robles DPM Date:?0 01/04/2025 Generated for Johan koehler/Billy/Luis on:?01/30/2025 07:20 AM EDT History and Physical Notes * HPI (History of Present Illness) Category Sub-Category Detail Notes Category Not es Toe pain Location: B/L feet Duration: several years Course: worse Aggravated by: shoes, any pressure Treatments: Rx shoes , change in shoes At Risk footcare Pt States Last PCP Visit: Date: Examination Category Sub-Category Detail Notes Category Not es Neurological SENSORY: Neurological exa m demonstrates, reduced light touch sensation, reduced sharp/dull pin prick discrimination , B/L, 5.07 monofilament test performed at plantar aspects of 5 varied sites per foot shows sensation, reduced , B/L Dermatologic SKIN FINDINGS: Skin exam reveal s Keratotic lesion(s) located at plantar heels B/L Orthopedic FOOTWEAR EVALUATION: worn, non-s upportive, shoe gear properties exacerbate patient's foot/toe deformity DIGITAL DEFORMITIES: Digital contracture , PIPJ, 2-5 B/L, incompl-reducible to push-up test, no over, nor underlapping, there is evidence of shoe producing skin irritation MUSCLE STRENGTH: 5/5 all groups in a symmetrical fashion, B/L General Examination GENERAL APPEARANCE: Reveals a pleasant, alert, well nourished, well-developed, well hydrated individual, who demonstrates proper attention to hygiene/body habitus, and is in no acute distress, Pt serves as own historian for office visit today FOOT EXAM: Lower Extremity Neurological Exa m performed:: Yes Date Visual exam of foot performed:: Yes Date: 01/04/2025 Sensory testing performed:: sensations d iminished Sensory and motor testing performed:: [facility] normal Pedal pulse taking performed:: 2+ ORIENTED: person, place, and t myesha Footwear Evaluation Footwear Evaluation performe d:: Yes Ophthalmology Referral DIABETES EYE EXAM Procedure Perform ed:: No Findings of Diabetic Eye Exam:: no retin opathy Vascular DP PULSES (B): 2/4, B/L PT PULSES (B): 1/4, B/L CAPILLARY FILL TIME: 3 secs. per digit, b/l TEMPERTURE GRADIENT (C): warm to cool, p roximal to distal TROPHIC CONDITION-TEXTURE/EL ASTICITY/TURGOR/HAIR GROWTH (B): absent EDEMA (C): 1/4, Left heel/achil les VARICOSITIES: absent ELEV. PALOR: absent CLUBBING: absent CLAUDICATION (C): negative, b/l REST PAIN: negative YUN'S SIGN: absent, b/l PALPABLE CORDS: absent, b/l Nails NAILS are: Elongated, overg rown, dystrophic, lytic, greater than 3mm thick, discolored and friable with crumbly malodorous subungual debris, TA, T1, T2, T3, T4, T5, T6, T7, T8, T9 CQM Exceptions: Hemoglobin A1c not performed Reason:: No r gray specified
--- OUTSIDE RECORDS SUMMARY | 2025-01-30 07:20 | XMS_ITS ---
[facility] Address [address] [place] [address] Care Team Providers Care Mental Health Unit Lead Psychologist Name Role Phone Desiree Randall MD Primary Care Provider Deborah Villar Unavailable [phone] Allergies Allergen (clinical drug ingredient) Drug/Non Drug Allergy documented on EMR Reaction Allergy Type Onset Date Status cephalexin Cephalexin very itchy rash Drug Allergy Active morphine Morphine makes him unruly Drug Allergy Active REASON FOR VISIT At Risk Footcare Medications Medication SIG (Take, Route, Frequency, Duration) [...] for 90 A ctive ProAir HFA Active Voltaren 1 % as directed Externally Active Advair Diskus 500-50 MCG/ACT 1 puff Inhalation Twice a day Active Finasteride Not-Taki ng Albuterol Sulfate HFA 108 (90 Base) MCG/ACT INHALE 2 PUFFS BY MOUTH EVERY 4 TO 6 HOURS NEEDED Inhalation for 50 Active Wellbutrin 100 MG 1 tablet Orally Thre e times a day for 30 day(s) Not-Taking amLODIPine Besylate 5 MG 1 tablet Orally Once a day Not-Taking PriLOSEC Not-Taking Combivent 18-103 MCG/ACT 2 puffs Inhalat ion Four times a day Not-Taking MiraLax 1 packet mixed with 8 ounces of fluid Orally Once a day Not-Taking Fluoxetine Not-Takin g rOPINIRole HCl 1 MG TAKE 2 TABLETS BY MO ILH DAILY Oral for 90 Active Spiriva Respimat 2.5 MCG/ACT Inhalation for 30 Active Trulicity Active Colcrys 0.6 MG 1 tablet Orally Once a day for 30 day(s) 01/05/2013 Not-Taking Advair Diskus 100-50 MCG/DOSE 1 puff Inhalation Twice a day Not-Taking Mupirocin 2 % External for 10 Active Omeprazole 20 MG Oral for 90 A ctive Restasis Active metFORMIN HCl ER 750 MG TAKE 2 TABLETS B Y MOUTH DAILY Oral for 90 Active Mometasone Furoate 0.1 % APPLY TO AREAS ON ARMS TWICE DAILY NEEDED Diagnosis Unavailable External for 20 Active Social History Tobacco Use: Social History Observation Description Date Details (start date - stop date) Former Smoker NA - NA Tobacco Use/Smoking Question Answer Notes Are you a: former smoker Additional Findings: Tobacco Non-User Current no n-smoker Alcohol Screen Question Answer Notes Did you have a drink contain ing alcohol in the past year? Yes How often did you have a dri nk containing alcohol in the past year? 2 to 4 times a month (2 points) Points 2 Interpretation Negative Tobacco use other than smoking: Question Answer Notes Are you an other tobacco user? No Vital Signs Height 5 ft 5 in in 08/30/2024 Weight 175 lbs 08/30/2024 BMI 29.12 kg/m2 08/30/2024 Blood pressure systolic 130 mm Hg 08/30/20 24 Blood pressure diastolic 70 mm Hg 024 Procedures Procedure Date Ordered Date Performed Result Body Sit e 16215-QHCMNPF NAIL, 6 OR MORE 08/30/2024 N/A 69882-YXOU SKIN LESIONS, 2 TO 4 08/30/2024 N/A Encounters Encounter Location Date Provider Diagnosis [facility] [place] [address] [place] [address] 08/30/2024 Deborah Robles Type 2 diabetes mellitus with diabetic polyneuropathy E11.42 and Tinea unguium B35.1 Assessments Encounter Date Diagnosis (ICD Code) Assessment Notes Treatment Notes Treatment Clinical Notes Section Notes 08/30/2024 Type 2 diabetes mellitus with diabetic polyneuropathy (ICD-10 - E11.42) 08/30/2024 Tinea unguium (ICD-10 - B35.1) Plan Of Treatment Pending Test Test Name Order Date 83240-CPFQWWV NAIL, 6 OR MORE 08/30/2024 52222-MXHG SKIN LESIONS, 2 TO 4 08/30/20 24 Next Appt Details Follow Up: 3 Months, Reason: Provider Name:Deborah cartwright, 04/04/2025 03:15:00 PM, [address] [place] [address], [phone], Procedure Notes * Category Sub-Category Detail Notes [...] use of a nail nipper and/or dremel-type valve grinder, to a more viable healthy nail plate [...] to maintain effectiveness in symptomatic relief - 14931 Keratoma Treatment Parring or Cutting o f [...] instrumentation by the physician of record - 86997 Progress Notes * Alpa PLUMMER:1945 (79 yo M)Acc No.[id number]:08/30/2024 Progress Note Patient:?Miki PLUMMER Provider:?Deborah Robles DPM :1945???Age:79 Y???Sex:Male Allen e:08/30/2024 Address:[address] [place] [address] [id number] Pcp:Desiree Randall MD Subjective: * Chief Complaints: * ???At Risk Footcare * HPI: ???At Risk footcare:?Pt States Last PCP Visit:?Date?07/14/2024 * ROS:?General/Constitutional:?Nausea?denies.?Vomiting?denies.?Hunger Thirst?denies.?Loss appetite?denies.?Chills?denies.?Fatigue?denies.?Fever?denies.?Night Sweats?denies.?Unexplained weight loss?denies.?Unexplained [...] t Surgical History * Hospitalization/Major Diagno stic Procedure:?Denies Past Hospitalization * Family History:?Mother: dece ased, liver disease, diagnosed with Unspecified essential hypertension.?Father: , foot problems, diagnosed with Unspecified essential hypertension, Family history of arthritis, Diabetic - NIDDM.? * Social History:?Tobacco Use:?Tobacco Use/Smoking?Are you a:?former smoker ?Additional Findings: Tobacco Non-User?Current non-smoker ?Tobacco use other than smoking?Are you an other tobacco user??No ???Drugs/Alcohol:?Drugs?Have you used drugs other than those for medical reasons in the past 12 months??No ?Alcohol Screen?Did you have a drink containing alcohol in the past year??Yes ?How often did you have a drink containing alcohol in the past year??2 to 4 times a month (2 points) ?Points?2 ?Interpretation?Negative ???Miscellaneous:?Caffeine: yes, frequency:, 2-3 cups per day. ?Children: yes, 3. ?Exercise: yes, gardening, work on [employer]. ?Marital status: . ?Occupation: Retired- [employer]. * Medications:?TakingVoltaren 1 % Gel as directed [...] ft 5 in, Wt:17 5, BMI: 29.12, BP:130/70mm Hg, BS:130, Wt-k.38 kg. * Examination: ???Ophthalmology Referral: ?DIABETES EYE EXAM?Procedure [...] STRENGTH:?5/5 all groups in a symmetrical fashion, B/L.?General Examination: ?GENERAL APPEARANCE:?Reveals a pleasant, alert, well nourished, well- developed, well hydrated individual, who demonstrates proper attention to hygiene/body habitus, and is in no acute distress, Pt serves as own historian for office visit today.?ORIENTED:?person, place, and time.? Assessment: * Assessment: 1.?Type 2 diabetes mellitus with diabetic polyneuropathy - E11.42 (Primary)???2.?Tinea unguium - B35.1??? Plan: * Treatment: * Procedures:?Debride Nail 6-10:?Nail debridement?Due to the [...] use of a nail nipper and/or dremel-type valve grinder, to a more viable healthy nail plate [...] to maintain effectiveness in symptomatic relief - 14920.?Keratoma Treatment:?Parring or Cutting of Benign Hyperkeratotic Lesion(s)?(-56) [...] instrumentation by the physician of record - 87830.? * Procedure Codes:?06754 DEBRI DE NAIL, 6 OR MORE, Modifiers: XS 82432 TRIM SKIN LESIONS, 2 TO 4, Modifiers: XS * Follow Up:?3 Months * Images: * Sign off status: Completed true * Provider:?Deborah Robles DPM Date:?1 10/31/2023 Generated for Johan koehler/Billy/Shefaliitting on:?01/30/2025 07:20 AM EDT History and Physical Notes * HPI (History of Present Illness) Category Sub-Category Detail Notes Category Not es At Risk footcare Pt States Last PCP [...] lesion(s) located at plantar heels B/L Orthopedic MUSCLE STRENGTH: 5/5 all groups in a symmetrical fashion, B/L General Examination GENERAL APPEARANCE: Reveals a pleasant, alert, well nourished, well-developed, well hydrated individual, who demonstrates proper attention to hygiene/body habitus, and is in no acute distress, Pt serves as own historian for office visit today ORIENTED: person, place, and t myesha Ophthalmology Referral DIABETES EYE EXAM Procedure Perform [...]
--- OUTSIDE RECORDS SUMMARY | 2025-01-30 07:20 | XMS_ITS | Clinical Summary ---
Author Organization [facility] Address [address] [place] [address] Care Team Providers Care Automotive Drivability Technician Name Role Phone Desiree Randall MD Primary Care Provider [phone] Allergies Active Allergy Reactions Criticality Noted Date Comments Cephalexin 04/22/2017 Morphine 04/22/2017 Medications Medication Sig Dispensed Refills Start Date End Date Status omeprazole (PRILOSEC) 20 MG capsule Take 20 mg by mouth daily. 0 Active finasteride (PROSCAR) 5 MG tablet Take 5 mg by mouth daily. 0 Active amLODIPine (NORVASC) tablet 10 mg Take 10 mg by mouth daily. 0 Active ipratropium-albutero l (COMBIVENT RESPIMAT) 20-100 MCG/ACT inhaler Inhale 1 puff into the lungs 4 (four) times a day. 0 Active fluticasone-salmeter ol (ADVAIR DISKUS) 250-50 MCG/DOSE DISKUS 1 inhalation by Inhaled route every 12 (twelve) hours. 0 Active tiotropium (SPIRIVA) [address] 18 mcg into inhaler and inhale daily. 0 Active allopurinol (ZYLOPRIM) 100 MG tablet Take 100 mg by mouth daily. 0 Active Active Problems No known active problems Family History Medical History Relation Name Comments Diabetes Father Cirrhosis Mother Diabetes Paternal Aunt Diabetes Paternal Uncle Relation Name Status Comments Father Mother Paternal Aunt Paternal Uncle Social History Tobacco Use Types Packs/Day Years Used Date Smoking Tobacco: Former Smokeless Tobacco: Never Alcohol Use Standard Drinks/Week Comments Yes 0 (1 standard drink = 0.6 oz pur e alcohol) socially Sex and Gender Information Value Date Recorded Sex Assigned at Not on file Gender Identity Not on file Sexual Orientation Not on file Job Start Date Occupation Industry Not on file Not on file Not on file Last Filed Vital Signs Vital Sign Reading Time Taken Comments Blood Pressure 131/57 05/29/2020 10:31 AM EDT Pulse 75 05/29/2020 10:31 AM EDT Temperature 36.9 ??C (98.4 ??F) 05/29/2020 10:31 AM E DT Respiratory Rate - - Oxygen Saturation - - Inhaled Oxygen Concentration - - Weight 83.9 kg (185 lb) 05/29/2020 10:27 AM EDT Height 165.1 cm (5' 5 ) 05/29/2020 10:27 AM EDT Body Mass Index 30.79 05/29/2020 10:27 AM EDT Plan of Treatment Health Maintenance Due Date Last Done Comments Hepatitis C Screening 1945 COVID-19 Vaccine (#1) 1945 Depression Screening 1957 Preventative Health Evaluation 1963 DTap / Tdap / Td (1 - Tdap) 1964 Shingrix-Zoster Vaccine (1 of 2) 1995 Fall Risk Assessment 2010 Pneumococcal Vaccine (1 of 1 - PCV) 2010 RSV Adult > 60+ Yrs or Pregn ant (1 - 1-dose 75+ series) 2020 Influenza Vaccine (#1) 2024 Hepatitis B Vaccines Aged Out No long er eligible based on patient's age to complete this topic RSV Ped < 20 months Aged Out No longe r eligible based on patient's age to complete this topic Care Teams Automotive Drivability Technician Relationship Specialty Start Date End Date Desiree Randall MD PCP - General Certified Tumor Registrar 04/22/17
--- OUTSIDE RECORDS SUMMARY | 2025-01-30 07:20 | XMS_ITS | Clinical Summary ---
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 pain and shortness of breath FINDINGS: Single portable AP view of the chest obtained. Compared to multiple prior studies most recent from April 30, 2023. Chest CTA from December 19, 2024 reviewed. Emphysematous changes are better demonstrated on chest CT. Hypoinflation with mild atelectatic changes. Small nodular right upper lobe airspace disease suspected. No infiltrates or effusions. Chest wall deformity from significant scoliosis is similar to the prior studies. Heart normal in size and shape. Bony structures are unchanged. Procedure Note Cornell Bui MD - 12/19/2024 INDICATION: Chest pain and shortness of breath FINDINGS: Single portable AP view of the chest obtained. Compared tomultiple prior studies most recent from April 30, 2023. Chest CTA fromDecember 19, 2024 reviewed. Emphysematous changes are better demonstrated on chest CT. Hypoinflationwith mild atelectatic changes. Small nodular right upper lobe airspacedisease suspected. No infiltrates or effusions. Chest wall deformity fromsignificant scoliosis is similar to the prior studies. Heart normal in size and shape. Bony structures are unchanged. IMPRESSION: Hypoinflated with mild atelectatic changes and significant scoliosis.Nodular airspace disease in the right upper lobe suspected, bettervisualized on subsequent chest CTA. -------- FINAL REPORT -------- Dictated By: Cornell Bui Dictated Date: 12/19/2024 10:16 ET Assigned Physician: Cornell Bui Reviewed and Electronically Signed By: Cornell Bui Signed Date: 12/19/2024 10:23 ET Workstation ID: [id number] Transcribed By: Self Edit Transcribed Date: 12/19/2024 10:16 ET us Reyes Snider MD IMG XR PROCEDURES Final Res ult * Procalcitonin (12/19/2024 1:58 AM EDT) Procalcitonin 0.05 <=0.16 ng/mL LAB CHEMISTRY METHOD 12/19/2024 8:[address] [facility] Blood Venous blood specimen / Unknown Venipuncture / Unknown 12/19/2024 1:58 AM EDT 12/19/2024 2:[address] [facility] - 12/19/2024 8:55 AM EDT Procalcitonin > 2.00 ng/ml: Procalcitonin Levels above 2.00 ng/ml, on the first day of ICU admission represent a high risk for progression to severe sepsis and/or septic shock. Procalcitonin < 0.50 ng/ml: Procalcitonin levels below 0.50 ng/ml on the first day of ICU admission represent a low risk for progression to severe sepsis and/or septic shock. Concentrations <0.5 ng/mL do not exclude an infection, on account of local ized infections (without systemic signs) which can be associated with such low concentrations, or a systemic infection in its initial stages (<6 hours). Furthermore, increased procalcitonin can occur without infection. PCT concentrations between 0.5 and 2.0 ng/mL should be interpreted taking into account the patient's history. It is recommended to retest PCT within 6-24 hours if any concentrations <2.0 ng/mL are obtained. Reyes Snider MD LAB BLOOD ORDERABLES Final Result Performing Organization Address [facility] Co de Phone Number [facility] [address] [place] [address], * Prothrombin time with INR (12/19/2024 1:58 AM EDT) [facility] Protime 11.6 10.6 - 13.9 sec LAB COAGULATION METHOD 12/19/2024 2:[address] [facility] INR 0.9 LAB COAGULATION METHOD 12/19/2024 2:[address] [facility] Blood Venous blood specimen / Unknown Venipuncture / Unknown 12/19/2024 1:58 AM EDT 12/19/2024 2:17 AM EDT Kim HURTADO LAB BLOOD ORDERABLES Final Resu lt Performing Organization Address [facility]/ZIP Co de Phone Number [facility] [address] [place] [address], [place] [phone] * (ABNORMAL) C-reactive protein (12/19/2024 1:58 AM EDT) Pathologist [facility] C-Reactive Protein 9.40(H) <=0.50 mg/dL LAB CHEMISTRY METHOD 12/19/2024 5:[address] [facility] Blood Venous blood specimen / Unknown Venipuncture / Unknown 12/19/2024 1:58 AM EDT 12/19/2024 2:17 AM EDT Reyes Snider MD LAB BLOOD ORDERABLES Final Result Performing Organization Address [facility]/ZIP Co de Phone Number [facility] [address] [place] [address], [place] [phone] * B-type natriuretic peptide (12/19/2024 1:58 AM EDT) Pathologist [facility] BNP 44 <=100 pcg/mL LAB CHEMISTRY METHOD 12/19/2024 2:[address] [facility] Blood Venous blood specimen / Unknown Venipuncture / Unknown 12/19/2024 1:58 AM EDT 12/19/2024 2:17 AM EDT Kim HURTADO LAB BLOOD ORDERABLES Final Resu lt Performing Organization Address [facility] Co de Phone Number [facility] [address] [place] [address], [place] [phone] * Lipase (12/19/2024 1:58 AM EDT) [facility] Lipase 27 13 - 75 unit/L LAB CHEMISTRY METHOD 12/19/2024 2:[address] [facility] Blood Venous blood specimen / Unknown Venipuncture / Unknown 12/19/2024 1:58 AM EDT 12/19/2024 2:17 AM EDT Kim HURTADO LAB BLOOD ORDERABLES Final Resu lt Performing Organization Address [facility]/ZIP Co de Phone Number [facility] [address] [place] [address], [place] [phone] * (ABNORMAL) Hemoglobin A1c (12/19/2024 1:58 AM EDT) Hemoglobin A1C 7.2(H) <6.5 % LAB CHEMISTRY METHOD 12/19/2024 2:01 PM [facility] Mean Bld Glu Estim. 160 mg/dL LAB CHEMISTRY METHOD 12/19/2024 2:01 PM [facility] Blood Venous blood specimen / Unknown Venipuncture / Unknown 12/19/2024 1:58 AM EDT 12/19/2024 2:17 AM EDT us Reyes Snider MD LAB BLOOD ORDERABLES Final Result [facility] [address] [place] [address], * (ABNORMAL) Comprehensive metabolic panel (12/19/2024 1:58 AM EDT) Sodium 144 133 - 145 mmol/L LAB CHEMISTRY METHOD 12/19/2024 2:42 AM [facility] Potassium 4.8 3.5 - 5.5 mmol/L LAB CHEMISTRY METHOD 12/19/2024 2:42 AM [facility] Chloride 107 96 - 110 mmol/L LAB CHEMISTRY METHOD 12/19/2024 2:42 AM [facility] CO2 35(H) 21 - 32 mmol/L LAB CHEMISTRY METHOD 12/19/2024 2:42 AM [facility] Anion Gap 2(L) 3 - 11 LAB CHEMISTRY METHOD 12/19/2024 2:42 AM [facility] Glucose 95 70 - 100 mg/dL LAB CHEMISTRY METHOD 12/19/2024 2:42 AM [facility] BUN 30(H) 5 - 25 mg/dL LAB CHEMISTRY METHOD 12/19/2024 2:42 AM [facility] Creatinine 1.02 0.70 - 1.30 mg/dL LAB CHEMISTRY METHOD 12/19/2024 2:42 AM [facility] eGFR 75 >=60 mL/min/1. 73m2 LAB CHEMISTRY METHOD 12/19/2024 2:42 AM [facility] Comment:Calculation based on the??Chronic Kidney Disease Epidemiology Collaboration (CKD-EPI) equation refit??without adjustment for race. BUN/Creatinine Ratio 29.4 LAB CHEMISTRY METHOD 12/19/2024 2:42 AM [facility] Calcium 9.1 8.5 - 10.5 mg/dL LAB CHEMISTRY METHOD 12/19/2024 2:42 AM [facility] AST (SGOT) 11 10 - 42 unit/L LAB CHEMISTRY METHOD 12/19/2024 2:42 AM [facility] ALT (SGPT) 15 10 - 60 unit/L LAB CHEMISTRY METHOD 12/19/2024 2:42 AM [facility] Alkaline Phosphatase 80 42 - 121 unit/L LAB CHEMISTRY METHOD 12/19/2024 2:42 AM [facility] Total Protein 6.7 6.0 - 8.0 g/dL LAB CHEMISTRY METHOD 12/19/2024 2:42 AM [facility] Albumin 3.1(L) 3.2 - 5.0 g/dL LAB CHEMISTRY METHOD 12/19/2024 2:42 AM [facility] Total Bilirubin 0.3 0.0 - 1.4 mg/dL LAB CHEMISTRY METHOD 12/19/2024 2:42 AM [facility] Blood Venous blood specimen / Unknown Venipuncture / Unknown 12/19/2024 1:58 AM EDT 12/19/2024 2:17 AM EDT us Kim HURTADO LAB BLOOD ORDERABLES Final Resu lt 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 Do not modify or discontinue any currently active code status orders. * No CPR/Do Not Intubate Date Activated Date Inactivated Comments 12/19/2024 9:21 AM 12/19/2024 4:26 PM This code stat us was ascertained in the following way: Code status discussion: discussion with healthcare medicare sales representative To update the patient's code status, place a code status order. Do not modify or discontinue any currently active code status orders. * Full Code - Default Date Activated Date Inactivated Comments 12/19/2024 7:21 AM 12/19/2024 9:21 AM This is order is used when code status has not been discussed with the patient, or code status is otherwise unknown/unconfirmed To update the patient's code status, place a code status order. Do not modify or discontinue any currently active code status orders. * Full Code - Default Date Activated Date Inactivated Comments 12/19/2024 5:12 AM 12/19/2024 7:21 AM This is order is used when code status has not been discussed with the patient, or code status is otherwise unknown/unconfirmed To update the patient's code status, place a code status order. Do not modify or discontinue any currently active code status orders. Healthcare Agents on File Name Relationship Healthcare Agent Relationsdc p Communication Roseanna Connell Spouse Health Care Agent Care Teams Net Developer Contract Relationship Specialty Start Date End Date Desiree Randall MD [address] [place] [phone] PCP - General Internal Medicine 01/26/25
--- OUTSIDE RECORDS SUMMARY | 2025-01-30 07:20 | XMS_ITS | Data Portability ---
Author Organization [place] - [facility], Allergy Address [address] [place] [address] Assessment Encounter Date Assessment Date Assessment LastModified by Organization Details LastModified Time 05/23/2024 05/23/2024 Reviewed with patient the options available for the latest amplification devices, the differences between makes/models of devices, and the importance of selecting the best make/model for their lifestyle and audiometric needs. Discussed the importance of optimizing the ability to perceive and understand speech by analyzing the output of devices using speech mapping as part of our real-ear verification procedure. The patient's concerns about using hearing devices were discussed. Taking into consideration the patient's lifestyle, personal preferences, severity of hearing loss & hearing handicap, a fitting of Phonak unvhviem-bm-mpi- canal hearing devices is expected to provide a significant improvement in the patient's ability to communicate. In addition to amplification, additional accommodations should be considered, such as closed captioning on the television or at movie theaters, strategically positioning ones' self closer to the listener, remote microphone technology, Bluetooth technology, and considering reducing noise & reverberation at home. Patient to order devices through [employer] and will be fitted at [facility], in our [place] office. Follow up for an orientation fitting at patient's convenience. [email or web address] Not available 05/23/2024 13:57:52 06/01/2024 06/01/2024 Complete occlusion of all 4 microphone inlets and mash tub cooker sound bore. Resolution: In-office cleaning. Patient to berry picker device(s) at their convenience. [email or web address] Not available 06/01/2024 10:39:02 06/06/2024 06/06/2024 The device was programmed wirelessly using the breakfast host's software in [facility]. We reviewed using real-ear verification and adjusting the settings to best match the patient's hearing needs in order to obtain the best outcome. Given that the patient is a previous user, real-ear verification was performed and the gain was adjusted to maximize the patient's ability to hear speech and a comfortable listening level. The patient's concerns about using the devices were discussed. We reviewed the device options and what accessories are included. Reviewed features such as bluetooth, adjusting the volume control, and the use of a multimemory button for additional programs. Changing the wax filter was reviewed. At the end of the visit, the patient practiced insertion/remova l and reported no pain or discomfort. Follow up regarding the right hearing aidon an as-needed basis as patient reports satisfaction with hearing and will return with any concerns. The left device has been sent to [employer] for in-warranty repair; the button cannot be pressed due to debris under the button. [email or web address] Not available 06/08/2024 11:42:48 07/10/2024 07/10/2024 Patient presents for evaluation of ears. Cerumen successfully removed bilaterally, which patient tolerated well. Otologic exam otherwise unremarkable. Patient reported hearing returned to baseline thereafter and declined audiometric testing. Return in 3-6 months for cerumen removal. Avoid Q-tips. Avoid or protect against loud noise. Recommend annual audiometric testing, sooner with perceived change. Patient understands to call sooner with any issues that arise. [email or web address] Not available 07/10/2024 13:43:40 11/07/2024 11/07/2024 79-year-old male presents for cerumen removal. Cerumen removed bilaterally. Follow-up in 6 months. [email or web address] Not available 11/07/2024 11:01:00 Plan of Treatment Reminders Order Date Submit Date Provider Last Modified By Organization Details Last Modified Time Details Appointments Establish ed 15 2024 11:15A Nila CHRISTIANSON PA-C Not available Not available Not available Lab None recorded. Referral None recorded. Procedures None recorded. Surgeries None recorded. Imaging None recorded. Medication Orders None recorded. Patient TargetsNo targets recorded. Patient InstructionsNo instructions recorded. Reason for Referral None Reported. Results Created Date Observation Date Name Description Value Unit Range Abnormal Flag Note LastModifiedBy Organization Detail LastModifiedTime 05/02/20 24 09/17/2020 imagi ng/di agnos tic resul t No observ ation record ed. [email or web address] Not Available 15:22:56 05/02/20 24 10/20/2022 imagi ng/di agnos tic resul t No observ ation record ed. [email or web address] Not Available 15:23:03 05/02/20 24 10/20/2022 imagi ng/di agnos tic resul t No observ ation record ed. [email or web address] Not Available 15:23:04 05/02/20 24 02/12/2023 imagi ng/di agnos tic resul t No observ ation record ed. [email or web address] Not Available 15:23:10 05/02/20 24 02/15/2023 imagi ng/di agnos tic resul t No observ ation record ed. [email or web address] Not Available 15:23:12 05/02/20 24 02/15/2023 imagi ng/di agnos tic resul t No observ ation record ed. [email or web address] Not Available 15:23:17 05/02/20 24 02/15/2023 imagi ng/di agnos tic resul t No observ ation record ed. [email or web address] Not Available 15:23:18 05/02/20 24 02/25/2022 imagi ng/di agnos tic resul t No observ ation record ed. [email or web address] Not Available 15:23:19 05/02/20 24 06/17/2023 imagi ng/di agnos tic resul t No observ ation record ed. [email or web address] Not Available 15:23:22 05/02/20 24 08/04/2023 imagi ng/di agnos tic resul t No observ ation record ed. [email or web address] Not Available 15:23:25 05/02/20 24 08/04/2023 imagi ng/di agnos tic resul t No observ ation record ed. [email or web address] Not Available 15:23:27 05/02/20 24 09/12/2020 imagi ng/di agnos tic resul t No observ ation record ed. [email or web address] Not Available 15:23:32 05/02/20 24 09/17/2020 audio gram No observ ation record ed. [email or web address] Not Available 15:23:42 05/02/20 24 09/29/2023 audio gram No observ ation record ed. [email or web address] Not Available 15:23:48 05/02/20 24 08/04/2023 audio gram No observ ation record ed. [email or web address] Not Available 15:24:19 05/02/20 24 08/25/2023 audio gram No observ ation record ed. [email or web address] Not Available 15:24:24 Result Notes None recorded. Problems Name Problem SNOMED Code Status Onset Date Resolution Date Notes Provider Name and Address Organization Details Recorded Time Gastroeso phageal reflux disease without esophagit is 736821867 Active 2021 Gastro-es ophageal reflux disease without esophagit is; Note: Date Diagnosed : 02/02/2022 11:19 AM (K21.9) Not Available [facility] 4 02:40:29 Localized swelling of head 44549453776 332948 Active 2021 Localized swelling, mass and lump, head; Note: Date Diagnosed : 02/02/2022 11:19 AM (R22.0) Not Available [facility] 4 02:40:25 Sensorine ural hearing loss of bilateral ears 254520276 Active 2014 Sensorine ural HL, bilateral ; Note: Date Diagnosed : 06/11/2015 3:31 PM (389.18) Hearing loss: Sensorine ural hearing loss, bilateral ; Note: Date Diagnosed : 06/20/2014 4:19 PM (389.18) ; Start Date : 4 Sensori neural hearing loss, bilateral ; Note: Date Diagnosed : 06/11/2015 3:31 PM (H90.3) Not Available [facility] 4 02:40:23 Impacted cerumen in left ear 38462926734 29593 Active 2018 Impacted cerumen, left ear; Note: Date Diagnosed : 9 9:31 AM (H61.22) Impacte d cerumen, left ear; Note: Date Diagnosed : 01/18/2018 10:20 AM (H61.22) ; Start Date : 8 Not Available [facility] 4 02:40:37 Impacted cerumen 40270030 Active 2014 Impacted cerumen; Location: bilateral CMS Risk: low risk Cond ition: uncontrol led Not Available [facility] 4 02:40:36 Impacted cerumen of bilateral ears 14646965153 65024 Active 2020 Impacted cerumen, bilateral ; Note: Date Diagnosed : 1 10:28 AM (H61.23) Impacte d cerumen, bilateral ; Note: Date Diagnosed : 10/06/2016 10:29 AM (H61.23) ; Start Date : 7 Not Available [facility] 4 02:40:22 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 Procedures Surgical History Date Name Laterality Status Provider Name and Address Organization Details Recorded Time Cerumen removal without microscope bilat completed CARO CHRISTIANSON PA-C [address], [place], [address], [facility] - [facility] 11/07/2024 11:00:46 Cerumen removal without microscope bilat completed ISSAC ANDERSON PA-C [address], [place], [address], [place] - [facility] 07/10/2024 13:43:26 Imaging Results Imaging Date Name Status LastModified by Organiz ation Details LastModified Time 09/17/2020 imaging/diagno stic result completed Information not available 05/02/2024 15:22:56 10/20/2022 imaging/diagno stic result completed Information not available 05/02/2024 15:23:03 10/20/2022 imaging/diagno stic result completed Information not available 05/02/2024 15:23:04 02/12/2023 imaging/diagno stic result completed Information not available 05/02/2024 15:23:10 02/15/2023 imaging/diagno stic result completed Information not available 05/02/2024 15:23:12 02/15/2023 imaging/diagno stic result completed Information not available 05/02/2024 15:23:17 02/15/2023 imaging/diagno stic result completed Information not available 05/02/2024 15:23:18 02/25/2022 imaging/diagno stic result completed Information not available 05/02/2024 15:23:19 06/17/2023 imaging/diagno stic result completed Information not available 05/02/2024 15:23:22 08/04/2023 imaging/diagno stic result completed Information not available 05/02/2024 15:23:25 08/04/2023 imaging/diagno stic result completed Information not available 05/02/2024 15:23:27 09/12/2020 imaging/diagno stic result completed Information not available 05/02/2024 15:23:32 09/17/2020 audiogram completed Information not available 05/02/2024 15:23:42 09/29/2023 audiogram completed Information not available 05/02/2024 15:23:48 08/04/2023 audiogram completed Information not available 05/02/2024 15:24:19 08/25/2023 audiogram completed Information not available 05/02/2024 15:24:24 Procedure Notes None recorded. Medical Equipment None Reported. Allergies Allergen ID Allergen Name Allergen Category Reaction Reaction Severity Criticality Documentation Date Start Date Code Code System Note Provider Name and Address Organization Details Recorded Time 71693 cephalexi n medicatio n other Not available Not available 01/25/2024 2231 RxNorm React ion: unkno wn, unspe cifie d;; Not Available [facility] 4 00:59:08 95536 morphine medicatio n other Not available Not available 01/25/2024 7052 RxNorm React ion: unkno wn, unspe cifie d;; Not Available [facility] 4 00:59:12 Medications Name Sig Start Date Stop Date Status Note LastModified by Organization Details LastModified Time albuterol sulfate 0.63 mg/3 mL solution for nebulizat ion INHALE 0.63 MG (3 ML) INHALED 4 TIMES A DAY NEEDED FOR SHORTNES S OF BREATH OR WHEEZING active Not Available Not Available No t Available ropinirol e 1 mg tablet TAKE 2 TABLETS (2 MG) ORALLY DAILY active Not Available Not Available No t Available amlodipin e 5 mg tablet TAKE 1 TABLET BY MOUTH TWICE A DAY active Not Available Not Available No t Available allopurin ol 100 mg tablet TAKE 1 TABLET BY MOUTH EVERY DAY active Not Available Not Available No t Available amlodipin e 10 mg tablet 07/29 completed Medicati on ID: [id number] Du ration Value: 30 Brand Name: amlanika ne Send Method: E-Prescr ibed Sub s Allowed: subs OK Medic ationGen ericName : amlodipi ne Not Available Not Available Not Available buspirone 10 mg tablet TAKE 1 TABLET BY MOUTH TWICE A DAY active Not Available Not Available No t Available Advair Diskus 250 mcg-50 mcg/dose powder for inhalatio n 07/29 completed Medicati on ID: [id number] Du ration Value: 30 Brand Name: Advair Diskus S end Method: E-Prescr ibed Sub s Allowed: subs OK Medic ationGen ericName : Advair Diskus Not Available Not Available Not Available sertralin e 25 mg tablet TAKE 1 TABLET BY MOUTH EVERY DAY active Not Available Not Available No t Available omeprazol e 20 mg capsule,d elayed release TAKE 1 CAPSULE BY MOUTH EVERY DAY active Not Available Not Available No t Available furosemid e 20 mg tablet TAKE 1 TABLET BY MOUTH EVERY MORNING active Not Available Not Available No t Available albuterol sulfate HFA 90 mcg/actua tion aerosol inhaler active Medicati on ID: [id number] B rand Name: albutero l sulfate Send Method: E-Prescr ibed Sub s Allowed: subs OK Medic ationGen ericName : albutero l sulfate Not Available Not Available Not Available fluoxetin e 20 mg capsule 07/29 completed Medicati on ID: [id number] Du ration Value: 30 Brand Name: fluoxeti ne Send Method: E-Prescr ibed Sub s Allowed: subs OK Medic ationGen ericName : fluoxeti ne Not Available Not Available Not Available fluticaso ne propionat e 50 mcg/actua tion nasal spray,[facility] active Medicati on ID: [id number] B rand Name: fluticas one propiona te Send Method: E-Prescr ibed Sub s Allowed: subs OK Medic ationGen ericName : fluticas one propiona te Not Available Not Available Not Available TobraDex 0.3 %-0.1 % [facility] drops,[facility]18 completed Medicati on ID: [id number] P ya d By Name: FELIX Kent nd Name: TobraDex Send Method: E-Prescr ibed Sub s Allowed: subs OK Speci al Instruct ion: Instill 4 drops in the affect ear BID for 10 days Med Klaus Santoro me: TobraDex Not Available Not Available Not Available metformin ER 750 mg tablet,ex tended release 24 hr TAKE 1500 MG (2 TABS X 750 MG) ORALLY DAILY active Not Available Not Available No t Available Colcrys 0.6 mg tablet 01/18 completed Medicati on ID: [id number] Du ration Value: 30 Reason: () Brand Name: Colcrys Send Method: E-Prescr ibed Sub s Allowed: subs OK Medic ationGen ericName : Colcrys Not Available Not Available Not Available OneTouch Verio test strips CHECK GLUCOSE ONCE A DAY active Not Available Not Available No t Available Combivent Respimat 20 mcg-100 mcg/actua tion solution for inhalatio n 07/29 completed Medicati on ID: [id number] Du ration Value: 30 Brand Name: Combiven t Respimat Send Method: E-Prescr ibed Sub s Allowed: subs OK Medic ationGen ericName : Combiven t Respimat Not Available Not Available Not Available Trulicity 1.5 mg/0.5 mL subcutane ous pen injector active Medicati on ID: [id number] B rand Name: Trulicit y Send Method: E-Prescr ibed Sub s Allowed: subs OK Medic ationGen ericName : Trulicit y Not Available Not Available Not Available Spiriva Respimat 2.5 mcg/actua tion solution for inhalatio n INHALE 2 PUFFS BY MOUTH AT THE SAME TIME EVERY DAY active Not Available Not Available No t Available Wixela Inhub 500 mcg-50 mcg/dose powder for inhalatio n TAKE 1 PUFF BY MOUTH EVERY 12 HOURS IN THE MORNING AND IN THE EVENING active Not Available Not Available No t Available OneTouch Delica Plus Lancet 33 gauge TEST BLOOD SUGAR ONCE DAILY active Not Available Not Available No t Available Trulicity 3 mg/0.5 mL subcutane ous pen injector active Not Available Not Available Not Available Vitals Date Recorded Body height Body mass index (BMI) Body weight Provider Name and Address Organization Details Last Updated DateTime 07/10/2024 165.1 cm 30 kg/m2 26384.63 g Thu Deutsch [place] - [facility] 07/10/2024 13:26:42 Date Recorded Body height Body mass index (BMI) Body weight Provider Name and Address Organization Details Last Updated DateTime 11/07/2024 165.1 cm 29.5 kg/m2 92659.85 g Kathryn Bowden [place] - [facility] 11/07/2024 10:55:16 Social History None recorded. Functional Status None recorded. Mental Status None recorded. Family History Nothing Reported. Medical History No medical history recorded. Past Encounters Encounter ID Performer Location Encounter Start Date Encounter Closed Date Diagnosis/Indication Diagnosis SNOMED-CT Code Diagnosis ICD10 Code Diagnosis Note [id number] Kiley MACDONALD [facility] [address] [address] 05/23/2024 13:57:40 05/24/2024 12:19:21 Sensorineural hearing loss of bilateral ears 593146991 H90.3 [id number] Kiley MACDONALD [facility] [place] [address] [place] [phone] 06/01/2024 10:38:03 2024 07:45:46 Sensorineural hearing loss of bilateral ears 837104166 H90.3 [id number] Kiley MACDONALD [facility] [place] [address] [place] [phone] 06/06/2024 13:28:35 06/08/2024 07:09:23 Sensorineural hearing loss of bilateral ears 718021979 H90.3 [id number] ISSAC ANDERSON PA-C [facility] [address] [address] 07/10/2024 13:09:40 07/10/2024 13:45:45 Impacted cerumen of bilateral ears 3149837836 003362 H61.23 [id number] CARO CHRISTIANSON PA-C [facility] [address] [address] 11/07/2024 10:51:26 11/07/2024 11:03:05 Impacted cerumen of bilateral ears 2869873522 376389 H61.23 Sensorineu ral hearing loss of bilateral ears 799204888 H90.3 Health Concerns Section Related Observation LastModified by Organization Detai ls LastModified Time None Recorded Concern Status LastModified by Organization Details LastModified Time None Recorded Advance Directives Directive None Recorded Payers Insurance Date Sequence Insurance Name Policy Number Policy Santos Covered Member ID Santos Member ID Guarantor Name 12/09/2024 2 [employer] - SENIOR SERVICES PLAN F (MEDICARE SUPPLEMENT) [id number] Miki Plummer [id number] Miki Plummer 11/07/2024 1 [place] B-[place] [facility] [employer] SERVICES Miki Plummer [id number] Miki Plummer 12/09/2024 2 [employer] - GIC INDEMNITY PLAN (MEDICARE SUPPLEMENT) [id number] Miki Plummer [id number] Miki Plummer Notes Date Note Type Note Provider Name and Address Organization Details Recorded Time 05/23/2024 text/html Patient returned to our office for the initial fitting of {{hearing devices a hearing device in the right ear* a hearing device in the left ear}} as a {{first time user longstanding user of the same style of device longstanding user of the same style of device on the left ear#}}. They have reported significant difficulty communicating in {{adverse listening situations* both adverse listening situations and in quiet}} and amplification has been recommended. Patient's case has been reviewed by an wide piece goods inspector who has provided medical clearance for the use of hearing devices. LALIT GAMBOA, [address], [address], [facility] 05/23/2024 13:58:57 06/01/2024 text/html Hearing Aid ProblemReported bypatient.Visit typedrop off repair LALIT GAMBOA, AuD [address], [address], [facility] 06/01/2024 10:40:16 06/06/2024 text/html Patient returned for an orientation fitting of {{hearing devices a hearing device in the right ear* a hearing device in the left ear}}. They are {{a first time user a longstanding user of amplification*}}. They reported significant difficulty communicating and understanding speech and {{hearing devices were the hearing device was*}} ordered through a 3rd alliance party vendor to be fitted at our office. The patient had selected this make and model for their lifestyle and audiological needs. Kiley MACDONALD 100 [facility],[address], [address], [facility] - [facility] 06/08/2024 11:45:19 07/10/2024 text/html 79-year-old male presents for cerumen removal. He reports hearing is unchanged. Hearing aids fit well and provide good benefit. He denies otalgia and otorrhea. TENZIN SNOW MD 100 [facility],[address], [address], [facility] 07/10/2024 16:54:55 11/07/2024 text/html 79-year-old male presents for cerumen removal. He has bilateral hearing loss with hearing aids. No acute issues. CHELSEA RAYGOZA MD 100 [facility],[place] [address], [place], [address], [facility] 11/07/2024 14:16:52
--- OUTSIDE RECORDS SUMMARY | 2025-01-30 07:21 | XMS_ITS ---
Author Organization [facility] Address [address] [place] [address] Care Team Providers Care Box Sealing Machine Catcher Name Role Phone Desiree Randall MD Primary Care Provider Deborah Villar [phone] REASON FOR VISIT QMB? Encounters Encounter Location Date Provider Diagnosis [address] [address] 01/04/2025 Deborah Robles Plan Of Treatment Next Appt Details Provider Name:Deborah cartwright, 04/04/2025 03:15:00 PM, [address] [place] [address], [phone], Progress Notes * Miki PLUMMERDOB:1945 (79 yo M)Acc No.[id number]:01/04/2025 Patient:?Miki PLUMMER :1945???Age:79 Y???Sex:Male Address:[place], [address] * true * Date:? Generated for Printi ng/Faxing/eTransmitting on:?01/30/2025 07:20 AM EDT
[2025-01-30 10:25] LABS: MANUAL DIFF FLAG NO
[2025-01-30 10:29] LABS: Basophils Absolute Auto 0.1 X10*3/uL (0.0-0.2); Eosinophils Absolute Auto 0.4 X10*3/uL (0.0-0.4); Eosinophils Percent Auto 4.9 % (0-4); Hematocrit 44.1 % (42.0-52.0); Hemoglobin 13.9 g/dl (14.0-18.0); Imm Gran Abs Auto 0.03 X10*3/uL (0.00-0.03); Imm Gran Pct Auto 0.4 % (0.0-0.4); Lymphocytes Absolute Auto 1.2 X10*3/uL (1.2-4.9); Lymphocytes Percent Auto 15.3 % (20-40); Mean Corpuscular HGB Conc 31.5 g/dl (31.0-36.0); Mean Corpuscular Hemoglobin 31.4 pg (27.0-33.0); Mean Corpuscular Volume 99.5 fL (80.0-98.0); Mean Platelet Volume 11.7 fL (9.4-12.4); Monocytes Absolute Auto 0.8 X10*3/uL (0.1-1.2); Monocytes Percent Auto 10.5 % (2-11); NRBC Pct Auto 0.2 /100WBC (0.0-0.2); Neutrophils Absolute Auto 5.5 x10*3/uL (2.0-8.3); Neutrophils Percent Auto 67.9 % (45-73); Platelet Count 244 X10*3/uL (160-400); Red Blood Count 4.43 X10*6/uL (4.60-5.80); Red Cell Distribution Width 15.1 % (11.0-16.0)
[2025-01-30 10:42] LABS: Estimated Average Glucose 151 mg/dL; Hemoglobin A1C 186.7969 umol/L; Hemoglobin A1c % 6.9 % (<6.0); Total Hemoglobin (HGBA1C) 3583.3859 umol/L
[2025-01-30 10:56] LABS: Alanine Aminotransferase 11 U/L (0-40); Albumin Level 3.8 g/dL (3.5-5.0); Alkaline Phosphatase 73 U/L (39-117); Anion Gap 12 (12-20); Aspartate Amino Transferase 19 U/L (5-37); Bilirubin Total 0.3 mg/dL (0.0-1.0); Blood Urea Nitrogen 36 mg/dL (9-16); Calcium 9.1 mg/dL (8.4-10.2); Carbon Dioxide 30 mmol/L (22-29); Chloride 104 mmol/L (96-108); Cholesterol 176 mg/dL (<200); Estimated Glomerular Filt Rate 55; Glucose Fasting 134 mg/dL (60-99); HDL Cholesterol 42 mg/dL (>40); LDL Cholesterol Calculated 113 mg/dL (<100); Sodium 141 mmol/L (135-145); Triglycerides 107 mg/dL (<150)
[2025-01-30 11:27] LABS: Creatinine Urine 82.58 mg/dL
== END 2025-01-30 07:19 | disposition home or self-care (01) ==
LOC: HO.HMGCLDS 07:18
PROVIDERS: PCP Internal Medicine; Visit Provider Internal Medicine
DX: I12.9 Hypertensive chronic kidney disease with stage 1 through stage 4 chronic kidney disease, or unspecified chronic kidney disease (principal); E11.22 Type 2 diabetes mellitus with diabetic chronic kidney disease; N18.30 Chronic kidney disease, stage 3 unspecified; J44.9 Chronic obstructive pulmonary disease, unspecified
CPT/HCPCS: 36415; 80053; 80061; 82043; 82570; 83036; 85025

== ENCOUNTER 2025-01-31 10:12 | Outpatient (AMB) | payer MEDICARE, OTHER, SELFPAY ==
--- NOTE | 2025-01-31 10:21 | A.OFFPC_ITS ---
Vital Signs 01/31/25 10:59 Height 5 ft 5 in Weight 175 lb BMI 29.1 BP 106/58 L Blood Pressure Location Rt brachial Position Sitting Respiration 20 Pulse 74 Pulse Source Pulse Oximeter Pulse Oximetry (%) 93 Oxygen Delivery Method Room Air Intake Visit Reasons: 6 months follow up Intake Note: Pt is here today for 6 months follow up visit. Allergies cephalexin Allergy (Unknown, Verified 08/01/24 09:32) itchy all over body morphine Allergy (Unknown, Verified 08/01/24 09:32) Agitated Medication List - Last Reconciled 01/31/25 by Desiree Randall MD albuterol sulfate 90 mcg/actuation 2 puffs PO Q4-6H PRN albuterol sulfate 0.63 mg (3 mL) inhalation QID PRN allopurinol 100 mg PO DAILY amlodipine 5 mg PO BID blood sugar diagnostic ([employer] Verio test strips) check glucose once a day buspirone 10 mg PO BID colchicine 0.6 mg PO BID dulaglutide (Trulicity) 3 mg (0.5 mL) subcut QWEEK fluticasone propion-salmeterol 500-50 mcg/dose (Advair Diskus) 1 inh inhalation BID fluticasone propionate 50 mcg/actuation (Flonase Allergy Relief) 1 spray intranasal DAILY furosemide 20 mg PO QAM lancets one a day lancets (Peanut LabsTouch Delica Plus Lancet) Test blood sugar once per day metformin ER 1,500 mg (2 x 750 mg) PO DAILY nebulizers As directed for updraft QID PRN for wheezing or shortness of breath omeprazole 20 mg PO DAILY ropinirole 2 mg (2 x 1 mg) PO DAILY sertraline (Zoloft) 25 mg PO DAILY [Stairlift As directed] tiotropium bromide 2.5 mcg/actuation (Spiriva Respimat) 2 inhalations inhalation QAM Tobacco use date assessed: 08/01/24 Fall risk assessment: 1 Fall in past year Last assessed Fall Risk: 01/31/25 Dental Screening Dental Screen Date: 08/01/24 HPI 6 months follow up HPI Details Pt presents for f/u COPD, hypoxia O2 dependent, hyperlipidemia chronic anxiety type 2 diabetes stable on current medications PFSH Medical History Carotid artery bruit Type 2 diabetes mellitus CKD (chronic kidney disease), stage III Kyphoscoliosis History of ITP Gout BPH (benign prostatic hyperplasia) HTN (hypertension) Gallstones GERD (gastroesophageal reflux disease) Lung nodules COPD (chronic obstructive pulmonary disease) Surgical History History of colectomy Family History Mother No problems noted. Son No problems noted. Son No problems noted. Daughter No problems noted. Father Diabetes Social History Housing: House Alcohol intake: current Alcohol intake frequency: holidays/special occasions only Patient Tobacco Use Status: Former Tobacco user Years Smoked: 10 e-Cigarette/Vaping Use: Never Used service: No Current occupational status: retired Cognitive needs: No Hearing needs: Yes Vision needs: Yes Questionnaire PHQ-9 Over the last 2 weeks, how often have you been bothered by any of the following problems? 1. Little interest or pleasure in doing things: not at all 2. Feeling down, depressed, or hopeless: not at all 3. Trouble falling or staying asleep, or sleeping too much: not at all 4. Feeling tired or having little energy: not at all 5. Poor appetite or overeating: not at all 6. Feeling bad about yourself - or that you are a failure or have let yourself or your family down: not at all 7. Trouble concentrating on things, such as reading the newspaper or watching television: not at all 8. Moving or speaking so slowly that other people could have noticed. Or the opposite - being so fidgety or restless that you have been moving around a lot more than usual: not at all 9. Thoughts that you would be better off or of hurting yourself in some way: not at all Total score: 0 Depression Screening Interpretation: Negative Depression Screening Done: Yes 95992 - PHQ-9 Billing: Yes Source: Developed by Drs. Andrew Cordero, Valeri Moscoso, Rafael Washington and colleagues, with an educational surinder from [employer]. Thrive Questionnaire Date Thrive assessed: 01/25/24 I am a: Patient What is your living situation today?: I have a steady place to live Within the past 12 months, did the food you bought not last and you didn't have the money to get more?: Never true Within the past 12 months, did you worry whether your food would run out before you got money to buy more?: Never true Do you have trouble paying for medicines?: No Do you have trouble getting transportation to medical appointments?: No Do you have trouble paying your heating and electricity bill?: No Do you have trouble taking care of your child, family member or friend?: No Do you have trouble with day-to-day activities such as bathing, preparing meals, shopping, managing finances, etc.?: No Are you currently unemployed and looking for a job?: No Are you interested in more education?: No Please select the resources that you would like help with: None Currently or been in a relationship where the following occur: No concerns reported THRIVE Score: 0 AUDIT C Alcohol Use Questionnaire (AUDIT-C) 1. How often do you have a drink containing alcohol?: Monthly or less 2. How many drinks containing alcohol do you have on a typical day when you are drinking?: 1 or 2 3. How often do you have six or more drinks on one occasion?: Never Total Score: 1 KAYLYNN-7 AMB Questionnaire KAYLYNN-7 Date KAYLYNN - 7 assessed: 08/01/24 Feeling nervous, anxious, or on edge: 0 = Not at all Not being able to stop or control worryin = Not at all Worrying too much about different things: 0 = Not at all Trouble relaxin = Not at all Being so restless that it is hard to sit still: 0 = Not at all Becoming easily annoyed or irritable: 0 = Not at all Feeling afraid as if something awful might happen: 0 = Not at all Total KAYLYNN-7 score (0-4 normal; 5-9 mild; 10-14 moderate; 15-21 severe): 0 Source: Developed by Drs. Andrew Cordero, Valeri Moscoso, Rafael Washington and colleagues, with an educational surinder from [employer] Review of Systems Const All systems reviewed & are unremarkable except as noted in HPI and below ENT Reports no additional complaints Card Reports no additional complaints Resp Reports no additional complaints GI Reports no additional complaints Physical exam (Primary Care) Vital Signs: Last Vital Signs Pulse 74 01/31/25 10:59 Resp 20 01/31/25 10:59 BP 106/58 L 01/31/25 10:59 Pulse Ox 93 01/31/25 10:59 Oxygen Delivery Method Room Air 01/31/25 10:59 BMI result Body Mass Index 29.1 Tobacco/Smoking Status: Tobacco use Status Tobacco use date assessed 08/01/24 01/31/25 10:21 Patient Tobacco Use Status Former Tobacco user 01/31/25 10:21 e-Cigarette/Vaping Use Never Used 01/31/25 10:21 PHQ-9: PHQ-9 Score PHQ-9: Total score 0 01/31/25 11:20 Depression Screening Interpretation: Negative Thrive Assessment: Date of Thrive Assessment Date Thrive assessed 01/25/24 01/31/25 10:21 Currently or been in a relationship where the following occur: No concerns reported Const General: no acute distress HENMT Head: Yes normal to inspection Neck Neck: Yes supple Resp Effort & Inspection: normal respiratory effort Auscultation: clear to auscultation bilaterally Cardio Rhythm: regular rhythm Heart sounds: S1 normal heart sound present and S2 normal heart sound present GI Inspection: Yes normal to inspection Palpation (GI): Soft to palpation Percussion: Yes normal to percussion Coding Level of Care Code Est Pt Level 4 (04523) Complex EM visit Add On G2211 Diagnoses COPD (chronic obstructive pulmonary disease) J44.9 Type 2 diabetes mellitus E11.9 CKD (chronic kidney disease), stage III N18.30 HTN (hypertension) I10 Additional Codes PHQ-9 - 11543 - PHQ-9 Billing: Yes ([id number]) Assessment & Plan Assessment & Plan (1) COPD (chronic obstructive pulmonary disease): Comment: Dr. Ervin PFT 06/27 moderate obstruction, severe restriction due to kyphoscoliosis, on supplemental O2 24 hours a day Code(s): J44.9 - Chronic obstructive pulmonary disease, unspecified Category: Medical Plan: Continue current inhalers,albuterol p.r.n. and supplemental O2 established with community reinvestment act officer (2) Type 2 diabetes mellitus: Comment: A1C goal less than 7 Code(s): E11.9 - Type 2 diabetes mellitus without complications Category: Medical Plan: A1c is 6.9, ADA diet regular physical activity weight loss discussed with the patient increase Trulicity to 4.5 mg (3) CKD (chronic kidney disease), stage III: Code(s): N18.30 - Chronic kidney disease, stage 3 unspecified Category: Medical Plan: Monitor renal function avoid nephrotoxins (4) HTN (hypertension): Comment: BP goal less then 130/80 Code(s): I10 - Essential (primary) hypertension Category: Medical Plan: Continue current medications Orders: Orders Comprehensive [place]. Panel Fast 6 Months E11.9 - Type 2 diabetes mellitus without complications, I10 - Essential (primary) hypertension, J44.9 - Chronic obstructive pulmonary disease, unspecified, N18.30 - Chronic kidney disease, stage 3 unspecified Complete Blood Count Auto Diff 6 Months E11.9 - Type 2 diabetes mellitus without complications, I10 - Essential (primary) hypertension, J44.9 - Chronic obstructive pulmonary disease, unspecified, N18.30 - Chronic kidney disease, stage 3 unspecified Lipid Panel 6 Months E11.9 - Type 2 diabetes mellitus without complications, I10 - Essential (primary) hypertension, J44.9 - Chronic obstructive pulmonary disease, unspecified, N18.30 - Chronic kidney disease, stage 3 unspecified Hemoglobin A1c 6 Months E11.9 - Type 2 diabetes mellitus without complications, I10 - Essential (primary) hypertension, J44.9 - Chronic obstructive pulmonary disease, unspecified, N18.30 - Chronic kidney disease, stage 3 unspecified Microalbumin 24 hr Urine 6 Months E11.9 - Type 2 diabetes mellitus without complications, I10 - Essential (primary) hypertension, J44.9 - Chronic obstructive pulmonary disease, unspecified, N18.30 - Chronic kidney disease, stage 3 unspecified Medications: New Trulicity (dulaglutide) 4.5 mg (0.5 mL) subcut QWEEK 6 mL 3RF NS Discontinued dulaglutide (Trulicity) Discontinued Reason: Doctor's Order 3 mg (0.5 mL) subcut QWEEK 6 mL 2RF Patient Instructions: Continue current medications follow-up in 6 months with a fasting labs before
[2025-01-31 10:59] VITALS: BP 106/58; PULSE 74; RESP 20; O2SAT 93; BMI 29.1
--- OUTSIDE RECORDS SUMMARY | 2025-01-31 11:46 | XMS_ITS | Data Portability ---
Author Organization [place] - [facility], Allergy Address [address] [place] [phone] Assessment Encounter Date Assessment Date Assessment LastModified [...] & hearing handicap, a fitting of Phonak [id number]- canal hearing devices is expected to provide a significant improvement in the patient's ability to communicate. In addition to amplification, additional accommodations should be considered, such as closed captioning on the television or at movie theaters, strategically positioning ones' self closer to the listener, remote microphone technology, Bluetooth technology, and considering reducing noise & reverberation at home. Patient to order devices through [employer] and will be fitted at [facility], in our [place] office. Follow up for an orientation fitting at patient's convenience. 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 Resolution: In-office cleaning. Patient to pickling machine operator device(s) at their convenience. [email or web address] Not available 06/01/2024 10:39:02 06/06/2024 06/06/2024 The device was programmed wirelessly using the stringed instrument tuner's software in [facility]. We reviewed using real-ear verification and [...] The left device has been sent to [employer] for in-warranty repair; the button cannot be pressed due to debris under the button. [email or web address] Not available 06/08/2024 11:42:48 07/10/2024 07/10/2024 Patient [...] Cerumen removed bilaterally. Follow-up in 6 months. [email or web address] Not available 11/07/2024 11:01:00 Plan of Treatment [...] Gastroeso phageal reflux disease without esophagit is 195292881 Active 2021 Gastro-es ophageal reflux disease without esophagit is; Note: Date Diagnosed : 02/02/2022 11:19 AM (K21.9) Not Available [facility] 4 02:40:29 Localized swelling of head 40550193766 147540 Active 2021 Localized swelling, mass and lump, head; Note: Date Diagnosed : 02/02/2022 11:19 AM (R22.0) Not Available [facility] 4 02:40:25 Sensorine ural hearing loss of bilateral ears 265281990 Active 2014 Sensorine ural HL, bilateral ; Note: Date Diagnosed : 06/11/2015 3:31 PM (389.18) Hearing loss: Sensorine ural hearing loss, bilateral ; Note: Date Diagnosed : 06/20/2014 4:19 PM (389.18) ; Start Date : 4 Sensori neural hearing loss, bilateral ; Note: Date Diagnosed : 06/11/2015 3:31 PM (H90.3) Not Available [facility] 4 02:40:23 Impacted cerumen in left ear 30794204393 91348 Active 2018 Impacted cerumen, left ear; Note: Date Diagnosed : 9 9:31 AM (H61.22) Impacte d cerumen, left ear; Note: Date Diagnosed : 01/18/2018 10:20 AM (H61.22) ; Start Date : 8 Not Available [facility] 4 02:40:37 Impacted cerumen 00030071 Active 2014 Impacted cerumen; Location: bilateral CMS Risk: low risk Cond ition: uncontrol led Not Available [facility] 4 02:40:36 Impacted cerumen of bilateral ears 50682640879 75160 Active 2020 Impacted cerumen, bilateral ; Note: Date Diagnosed : 1 10:28 AM (H61.23) Impacte d cerumen, bilateral ; Note: Date Diagnosed : 10/06/2016 10:29 AM (H61.23) ; Start Date : 7 Not Available [facility] 4 02:40:22 Somatofor m disorder 63649929 Active 2022 Psychogen ic dysphagia , including 'globus hystericu s'; Note: Date Diagnosed : 02/04/2023 11:34 AM (F45.8) Psychog enic dysphagia , including 'globus hystericu s'; Note: Date Diagnosed : 02/02/2022 11:19 AM (F45.8) ; Start Date : 2 Not Available [facility] 4 02:40:35 Benign neoplasm of oropharyn x 09180530 Active 2022 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 Procedures Surgical History Date Name Laterality Status Provider Name and Address Organization Details Recorded Time Cerumen removal without microscope bilat completed CARO CHRISTIANSON PA-C [address], [place], [address], [facility] - [facility] 11/07/2024 11:00:46 Cerumen removal without microscope bilat completed ISSAC ANDERSON PA-C [address], [place], [address], [place] - [facility] 07/10/2024 13:43:26 Imaging Results Imaging [...] Name and Address Organization Details Recorded Time 87024 cephalexi n medicatio n other Not available Not available 01/25/2024 2231 RxNorm React ion: unkno wn, unspe cifie d;; Not Available [facility] 4 00:59:08 77913 morphine medicatio n other Not available Not available 01/25/2024 7052 RxNorm React ion: unkno wn, unspe cifie d;; Not Available [facility] 4 00:59:12 Medications Name Sig Start Date [...] mg tablet 07/29 completed Medicati on ID: [id number] Du ration Value: 30 Brand Name: amlanika ne Send Method: E-Prescr ibed Sub s Allowed: subs OK Medic ationGen ericName : amlodipi ne Not Available Not Available Not Available buspirone 10 mg tablet TAKE 1 TABLET BY MOUTH TWICE A DAY active Not Available Not Available No t Available Advair Diskus 250 mcg-50 mcg/dose powder for inhalatio n 07/29 completed Medicati on ID: [id number] Du ration Value: 30 Brand Name: Advair [...] tion aerosol inhaler active Medicati on ID: [id number] B rand Name: albutero l sulfate Send Method: E-Prescr ibed Sub s Allowed: subs OK Medic ationGen ericName : albutero l sulfate Not Available Not Available Not Available fluoxetin e 20 mg capsule 07/29 completed Medicati on ID: [id number] Du ration Value: 30 Brand Name: fluoxeti ne Send Method: E-Prescr ibed Sub s Allowed: subs OK Medic ationGen ericName : fluoxeti ne Not Available Not Available Not Available fluticaso ne propionat e 50 mcg/actua tion nasal spray,[facility] active Medicati on ID: [id number] B rand Name: fluticas one propiona te Send Method: E-Prescr ibed Sub s Allowed: subs OK Medic ationGen ericName : fluticas one propiona te Not Available Not Available Not Available TobraDex 0.3 %-0.1 % eye drops,[facility] completed Medicati on ID: [id number] P ya d By Name: FELIX Kent [...] mg tablet 01/18 completed Medicati on ID: [id number] Du ration Value: 30 Reason: () Brand Name: Colcrys Send Method: E-Prescr ibed Sub s Allowed: subs OK Medic ationGen ericName : Colcrys Not Available Not Available Not Available OneTouch Verio test strips CHECK GLUCOSE ONCE A DAY active Not Available Not Available No t Available Combivent Respimat 20 mcg-100 mcg/actua tion solution for inhalatio n 07/29 completed Medicati on ID: 70243 Du ration Value: 30 Brand Name: Combiven t Respimat Send Method: E-Prescr ibed Sub s Allowed: subs OK Medic ationGen ericName : Combiven t Respimat Not Available Not Available Not Available Trulicity 1.5 mg/0.5 mL subcutane ous pen injector active Medicati on ID: [id number] B rand Name: Trulicit y Send Method: [...] Updated DateTime 07/10/2024 165.1 cm 30 kg/m2 90081.63 g Tuh Deutsch [place] - [facility] 07/10/2024 13:26:42 Date Recorded Body height Body mass index (BMI) Body weight Provider Name and Address Organization Details Last Updated DateTime 11/07/2024 165.1 cm 29.5 kg/m2 92094.85 g Kathryn Bowden [place] - [facility] 11/07/2024 10:55:16 Social History None recorded. Functional Status None recorded. Mental Status None recorded. Family History Nothing Reported. Medical History No medical history recorded. Past Encounters Encounter ID Performer Location Encounter Start Date Encounter Closed Date Diagnosis/Indication Diagnosis SNOMED-CT Code Diagnosis ICD10 Code Diagnosis Note [id number] Kiley MACDONALD [facility] [address] [phone] 05/23/2024 13:57:40 05/24/2024 12:19:21 Sensorineural hearing loss of bilateral ears 468333561 H90.3 [id number] Kiley MACDONALD [facility] [place] [address] [place] [phone] 06/01/2024 10:38:03 2024 07:45:46 Sensorineural hearing loss of bilateral ears 385197491 H90.3 [id number] Kiley MACDONALD [facility] [place] [address] [place] [phone] 06/06/2024 13:28:35 06/08/2024 07:09:23 Sensorineural hearing loss of bilateral ears 262623877 H90.3 [id number] ISSAC ANDERSON PA-C [facility] [address] [phone] 07/10/2024 13:09:40 07/10/2024 13:45:45 Impacted cerumen of bilateral ears 9112305363 839424 H61.23 [id number] CARO CHRISTIANSON PA-C [facility] [address] [address] 11/07/2024 10:51:26 11/07/2024 11:03:05 Impacted cerumen of bilateral ears 5718661317 194791 H61.23 Sensorineu ral hearing loss of bilateral ears 068188633 H90.3 Health Concerns Section Related Observation LastModified by Organization Detai ls LastModified Time None Recorded Concern Status LastModified by Organization Details LastModified Time None Recorded Advance Directives Directive None Recorded Payers Insurance Date Sequence Insurance Name Policy Number Policy Santos Covered Member ID Santos Member ID Guarantor Name 12/09/2024 2 [employer] - SENIOR SERVICES PLAN F (MEDICARE SUPPLEMENT) [id number] Miki Plummer [id number] Miki Plummer 11/07/2024 1 [place]ICARE B-[place]: [facility] [email or web address] Miki Plummer [id number] Miki Plummer 12/09/2024 2 [employer] - GIC INDEMNITY PLAN (MEDICARE SUPPLEMENT) [id number] Miki Plummer [id number] Miki Plummer Notes Date Note Type Note [...] Patient's case has been reviewed by an clothing pattern preparer who has provided medical clearance for the use of hearing devices. LALIT GAMBOA, AuD [address], [address], [facility] 05/23/2024 13:58:57 06/01/2024 text/html Hearing Aid ProblemReported bypatient.Visit typedrop off repair LALIT GAMBOA, AuD [address], [address], [facility] 06/01/2024 10:40:16 06/06/2024 text/html Patient returned for an orientation fitting of {{hearing devices a hearing device in the right ear* a hearing device in the left ear}}. They are {{a first time user a longstanding user of amplification*}}. They reported significant difficulty communicating and understanding speech and {{hearing devices were the hearing device was*}} ordered through a 3rd democrat vendor to be fitted at our office. The patient had selected this make and model for their lifestyle and audiological needs. Kiley MACDONALD 100 [facility],[address], [address], [facility] - [facility] 06/08/2024 11:45:19 07/10/2024 text/html 79-year-old male presents for cerumen removal. He reports hearing is unchanged. Hearing aids fit well and provide good benefit. He denies otalgia and otorrhea. TENZIN SNOW MD 100 [facility],[address], [address], [facility] 07/10/2024 16:54:55 11/07/2024 text/html 79-year-old male presents for cerumen removal. He has bilateral hearing loss with hearing aids. No acute issues. CHELSEA RAYGOZA MD 100 [facility],[address] [address], [place], [address], [facility] 11/07/2024 14:16:52
--- OUTSIDE RECORDS SUMMARY | 2025-01-31 11:46 | XMS_ITS ---
Author Organization [facility] Address [address] [facility] [place] [address] Care Team Providers Care Senior Interaction Designer Name Role Phone Desiree Randall MD Primary Care Provider Deborah Villar Unavailable [phone] Allergies Allergen (clinical drug ingredient) Drug/Non Drug [...] Problem Acquired hammer toe of right foot (720202995353 9105) Other hammer toe(s) (acquired), right foot (M20.41) Active confirmed Response to treatment,Im provement Problem Acquired hammer toe of left foot (648749596558 9103) Other hammer toe(s) (acquired), left foot (M20.42) Active confirmed Response to treatment,Im provement Vital Signs Height 5 ft 5 in in 01/04/2025 Weight 175 lbs 01/04/2025 BMI 29.12 kg/m2 01/04/2025 Blood pressure systolic 130 mm Hg 01/05/20 25 Blood pressure diastolic 80 mm Hg 025 Procedures Procedure Date Ordered Date Performed Result Body Sit e 99880-DDTBQYN NAIL, 6 OR MORE 01/04/2025 N/A 24702-SYBJ SKIN LESIONS, 2 TO 4 01/04/2025 N/A Encounters Encounter Location Date Provider Diagnosis [facility] [place] [address] [place] [address] 01/04/2025 Deborah Robles Type 2 diabetes mellitus [...] INSTRUCTIONS.pdf) Pending Test Test Name Order Date 84219-ETFPYIT NAIL, 6 OR MORE 01/04/2025 39401-ZZOX SKIN LESIONS, 2 TO 4 01/05/20 25 Next Appt Details Follow Up: 3 Months, Reason: Provider Name:Deborah cartwright, 04/04/2025 03:15:00 PM, [address] [place] [address], [phone], Procedure Notes * Category Sub-Category Detail Notes [...] of a nail nipper and/or dremel-type grinder setup operator, to a more viable healthy nail plate [...] to maintain effectiveness in symptomatic relief - 71196 Keratoma Treatment Parring or Cutting o f [...] instrumentation by the physician of record - 99348 Progress Notes * Miki PLUMMERDOB:1945 (79 yo M)Acc No.[id number]:01/04/2025 Progress Note Patient:?Miki PLUMMER Provider:?Deborah Robles DPM :1945???Age:79 Y???Sex:Male Allen e:01/04/2025 Address:[address] [place], [place] [address] Pcp:Desiree Randall MD Subjective: * Chief Complaints: [...] yes, 3. 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 ?Marital status: . ?Occupation: Retired- [employer]. ???Drug/Alcohol:?AUDIT-C (Standard)?Did you have a drink [...] of a nail nipper and/or dremel-type grinder setup operator, to a more viable healthy nail plate [...] to maintain effectiveness in symptomatic relief - 84489.?Keratoma Treatment:?Parring or Cutting of Benign Hyperkeratotic Lesion(s)?(-56) [...] instrumentation by the physician of record - 93326.? * Procedure Codes:?45815 DEBRI DE NAIL, 6 OR MORE, Modifiers: XS 47090 TRIM SKIN LESIONS, 2 TO 4, Modifiers: [...] DPM Date:?0 01/04/2025 Generated for Johan koehler/Billy/Luis on:?01/31/2025 11:46 AM EDT History and Physical Notes * [...] d iminished Sensory and motor testing performed:: [facility] normal Pedal pulse taking performed:: 2+ ORIENTED: [...]
--- OUTSIDE RECORDS SUMMARY | 2025-01-31 11:46 | XMS_ITS | Patient Health Record ---
Author Organization [facility] Address [address] [facility] [address] [place] [address] Care Team Providers Care Software Intern Name Role Phone Desiree Randall MD Primary Care Provider UnavailDeborah Nazario Unavailable [phone] Corky Gill Unavailable [phone] Allergies Allergen (clinical drug ingredient) Drug/Non Drug [...] Administration Date Status Comme nts COVID-19 Pfizer BioNTLucent Sky Vaccine Unknown 10/06/2021 Administered 1st 10/23/20 2nd [...] Problem Acquired hammer toe of right foot (1399791157166996 ) Other hammer toe(s) (acquired), right foot (M20.41) Active confirmed Response to treatment, Improvemen t Problem Acquired hammer toe of left foot (7655993592438944 ) Other hammer toe(s) (acquired), left foot (M20.42) Active confirmed Response to treatment, Improvemen t Problem Polyneuropathy due to type 2 diabetes mellitus (392893708) Type 2 diabetes mellitus with diabetic polyneuropathy (E11.42) Active confirmed Vital Signs Blood pressure diastolic 80 mm Hg 01/04/2025 Height 5 ft 5 in in 01/04/2025 Blood pressure systolic 130 mm Hg 01/04/2025 Weight 175 lbs 01/04/2025 BMI 29.12 kg/m2 01/04/2025 Procedures Procedure Date Ordered Date Performed Result Body Sit e 16486-RZOJ SKIN LESIONS, 2 TO 4 03/02/2024 N/A 07082-OYFYPSV NAIL, 6 OR MORE 08/30/2024 N/A 08830-BJAD SKIN LESIONS, 2 TO 4 08/30/2024 N/A 11362-LKYXGCO NAIL, 6 OR MORE 01/04/2025 N/A 69649-TVQG SKIN LESIONS, 2 TO 4 01/04/2025 N/A Encounters Encounter Location Date Provider Diagnosis [address] [address] 03/02/2024 Corky Gill Type 2 diabetes mellitus with diabetic polyneuropathy E11.42 ; Pain in right toe(s) M79.674 ; Tinea unguium B35.1 ; Pain in left toe(s) M79.675 and Xerosis cutis L85.[address] [address] 05/25/2024 Corky Gill Type 2 diabetes mellitus with diabetic polyneuropathy E11.42 ; Pain in right toe(s) M79.674 ; Tinea unguium B35.1 ; Pain in left toe(s) M79.675 and Xerosis cutis L85.[address] [address] 08/30/2024 Deborah Robles Type 2 diabetes mellitus with diabetic polyneuropathy E11.42 and Tinea unguium B35.[address] [address] 01/04/2025 Deborah Robles Type 2 diabetes mellitus with diabetic polyneuropathy E11.42 ; Tinea unguium B35.1 ; Other hammer toe(s) (acquired), right foot M20.41 and Other hammer toe(s) (acquired), left foot M20.[address] [place] [address] 01/04/2025 Deborah Robles Assessments Encounter Date Diagnosis [...] X ray : Foot, left 3V 02/25/2022 57223-AUHTOPL NAIL, 6 OR MORE 08/30/2024 39656-XFPOZOC NAIL, 6 OR MORE 01/04/2025 08395-HYMEYIO NAIL, 1-5 02/25/2022 46999-KBEQ SKIN LESIONS, OVER 4 02/26/20 22 67512-NSMY SKIN LESIONS, OVER 4 01/15/20 15 81284-TNGT SKIN LESIONS, OVER 4 01/13/20 16 09118-ZIEY SKIN LESIONS, OVER 4 10/13/19 22 82388-EHUB SKIN LESIONS, 2 TO 4 01/16/20 14 12412-OMFA SKIN LESIONS, 2 TO 4 03/02/20 24 33123-JIGR SKIN LESIONS, 2 TO 4 01/05/20 25 36722-PZVP SKIN LESIONS, 2 TO 4 08/30/20 24 N7441-LUJLYLNI DYSTROPHIC NAILS ANY # H9032-OKNMFPSV DYSTROPHIC NAILS ANY # 64529-ETNFQEOV OF HEMATOMA/FLUID 023 Next Appt Details Provider Name:Deborah Marcelinospencer cartwright, 04/04/2025 03:15:00 PM, [address] [place], [address], Insurance Providers Payer Name Payer Address Payer Phone Subscriber Number Group Number Insured Name Patient Relationship to Insured Coverage Start Date Coverage End Date Medicare National [employer]t [employer] [address] [facility] [place] [address] [id number] Miki Plummer Self - patient is the insured [facility] [address] [place], [place] [address] [phone] [id number] Miki Plummer Self - patient is the insured Medical (General) History Medical History History ICD Code diverticulosis gall bladder problems Gout hypertension keloids lung disease macular degeneration reflux chicken pox measles mumps transfusions emphysema colostomy Cataracts Kidney disease type II diabetes Surgical History Surgery Date(Month/Year) Hospitalization History Reason Date(Month/Year) [facility] Pneumonia 12/12/2024
--- OUTSIDE RECORDS SUMMARY | 2025-01-31 11:46 | XMS_ITS | Clinical Summary ---
Author Organization [facility] Address [address] [place] [phone] Phone Care Team Providers [employer] Paraprofessional Name Role Phone Desiree Randall MD Primary Care Provider [phone] Allergies Active Allergy Reactions Criticality Noted Date [...] 7 (seven) days. On saturdays Active omega 7-hgu-owc-fish oil (Fish OiL) 1,200 (144-216) mg capsule Take 1,200 mg by mouth 2 (two) times a day. Active bm-czl-IA-vit A-hdepww-lddpzu t (PreserVision AREDS 2 Plus MV) 200 mcg-15 mcg- 5 mg-1 mg capsule Take 2 capsules by mouth 1 (one) time each day. Active Active Problems Problem Noted Date Diagnosed Date Pneumonia of right upper lobe due to infectious organism 12/21/2024 Resolved Problems Problem Noted Date Diagnosed Date Resolved Date Acute on chronic hypoxic res piratory failure ([facility] V24, CMS/[facility] V28) 12/19/2024 12/21/2024 Encounters Date Type Department Care Team Description 12/19/2024 1:16 AM EDT - 12/21/2024 7:05 PM EDT Hospital Encounter [facility] [address] [place] [phone] Reyes Snider MD Bell, Alistair A, MD Bukalo, Nermina, MD Zipagan, Tarun Cui MD Chest pain, unspecified type (Primary Dx); Pneumonia of right upper lobe due to infectious organism; Acute hypoxic on chronic hypercapnic respiratory failure (CMS/[facility] V24, CMS/[facility] V28); Acute on chronic hypoxic respiratory failure (CMS/[facility] V24, CMS/[facility] V28) Discharge Disposition: Home-Health Care [facility] [place] from Last 3 Months Surgical History Surgery Date Site/Laterality Comments OTHER SURGICAL HISTORY 04/13/2018 PROCEDURE: LAPAROSCOPIC SPLENECTOMY; COMMENT: Dr. Alvarado HERNIA REPAIR 04/13/2018 PROCEDURE: HISTORICAL HERNIA REPAIR/MARIANA; COMMENT: parastomal hernia repair; Dr. Alvarado COLON SURGERY PROCEDURE:COLON SURGERY COLONOSCOPY PROCEDURE:COLONOSCOPY COLOSTOMY PROCEDURE:COLOSTOMY BACK SURGERY PROCEDURE:BACK SURGERY Medical History Medical History Date Comments Thrombocytopenia ([facility] V24) D X:Thrombocytopenia ([facility]) Hypertension DX:Hypertension COPD (chronic obstructive pu lmonary disease) ([facility] V24, [facility] V28) DX:COPD (chronic o bstructive pulmonary disease) ([facility]) Gout DX:Gout Lung disease, restrictive DX:Kraig g [...] Description 02/26/2025 9:30 AM EDT Office Visit [facility] [address] [place] [phone] Digna Ervin MD [address] [place] [address] Health Maintenance Due Date Last Done Comments [...] of11 resultswithin the time period is included. [facility] Glucose POCT 158(H) 70 - 100 mg/dL 12/21/2024 3:34 PM EDT [facility] Blood Capillary blood specimen / Unknown 12/21/2024 3:34 PM EDT 12/21/2024 3:35 PM EDT us Tarun Vizcaino MD LAB POINT OF CARE TE ST DOCKED DEVICE UNSOLICITED RESULTS Final Result [facility] [address] [place] [address], [place] [phone] * Lavender tube (12/21/2024 8:21 AM EDT) [facility] Extra Tube Hold for add-ons. 12/21/2024 10:01 AM [facility] Comment:Auto resulted. Blood Venous blood specimen / Unknown 12/21/2024 8:21 AM EDT 12/21/2024 8:36 AM EDT us Tarun Vizcaino MD LAB BLOOD ORDERABLES Final Re sult [facility] [address] [place] [address], [place] [phone] * (ABNORMAL) Basic metabolic panel (12/21/2024 8:21 AM EDT) Only the most recent of2 resultswithin the time period is included. [facility] Sodium 144 133 - 145 mmol/L LAB CHEMISTRY METHOD 12/21/2024 9:05 AM [facility] Potassium 4.4 3.5 - 5.5 mmol/L LAB CHEMISTRY METHOD 12/21/2024 9:05 AM [facility] Chloride 104 96 - 110 mmol/L LAB CHEMISTRY METHOD 12/21/2024 9:05 AM [facility] CO2 37(H) 21 - 32 mmol/L LAB CHEMISTRY METHOD 12/21/2024 9:05 AM [facility] Anion Gap 3 3 - 11 LAB CHEMISTRY METHOD 12/21/2024 9:05 AM [facility] Glucose 147(H) 70 - 100 mg/dL LAB CHEMISTRY METHOD 12/21/2024 9:05 AM [facility] BUN 30(H) 5 - 25 mg/dL LAB CHEMISTRY METHOD 12/21/2024 9:05 AM [facility] Creatinine 1.15 0.70 - 1.30 mg/dL LAB CHEMISTRY METHOD 12/21/2024 9:05 AM [facility] eGFR 65 >=60 mL/min/1. 73m2 LAB CHEMISTRY METHOD 12/21/2024 9:05 AM T [facility] Comment:Calculation based on the??Chronic Kidney Disease Epidemiology Collaboration (CKD-EPI) equation refit??without adjustment for race. BUN/Creatinine Ratio 26.1 LAB CHEMISTRY METHOD 12/21/2024 9:05 AM EDT [facility] Calcium 9.2 8.5 - 10.5 mg/dL LAB CHEMISTRY METHOD 12/21/2024 9:05 AM [facility] Blood Venous blood specimen / Unknown Venipuncture / Unknown 12/21/2024 8:21 AM EDT 12/21/2024 8:35 AM EDT us Tarnu Vizcaino MD LAB BLOOD ORDERABLES Final Re sult [facility] [address] [place] [address], [place] [phone] * (ABNORMAL) CBC auto differential (12/20/2024 6:01 AM EDT) Only the most recent of2 resultswithin the time period is included. WBC 7.1 4.8 - 10.8 K/mcL LAB HEMETOLOGY METHOD 12/20/2024 6:30 AM [facility] RBC 4.20(L) 4.50 - 5.50 M/[facility] LAB HEMETOLOGY METHOD 12/20/2024 6:30 AM [facility] Hemoglobin 13.2(L) 13.5 - 17.5 g/dL LAB HEMETOLOGY METHOD 12/20/2024 6:30 AM [facility] Hematocrit 42.8 42.0 - 54.0 % LAB HEMETOLOGY METHOD 12/20/2024 6:30 AM [facility] MCV 102.1(H) 79.0 - 98.0 FL LAB HEMETOLOGY METHOD 12/20/2024 6:30 AM [facility] MCH 31.5 27.0 - 32.0 pcg LAB HEMETOLOGY METHOD 12/20/2024 6:30 AM [facility] MCHC 30.8(L) 32.0 - 37.0 g/dL LAB HEMETOLOGY METHOD 12/20/2024 6:30 AM [facility] RDW 14.6 11.0 - 15.0 % LAB HEMETOLOGY METHOD 12/20/2024 6:30 AM [facility] Platelets 224 130 - 400 K/mcL LAB HEMETOLOGY METHOD 12/20/2024 6:30 AM [facility] MPV 11.1(H) 7.0 - 11.0 FL LAB HEMETOLOGY METHOD 12/20/2024 6:30 AM [facility] NRBC 0.3 <1.0 % LAB HEMETOLOGY METHOD 12/20/2024 6:30 AM [facility] NRBC Absolute 0.02 <0.10 K/mcL LAB HEMETOLOGY METHOD 12/20/2024 6:30 AM [facility] Neutrophils Relative 75.0 % LAB HEMETOLOGY METHOD 12/20/2024 6:30 AM [facility] Lymphocytes Relative 8.4 % LAB HEMETOLOGY METHOD 12/20/2024 6:30 AM [facility] Monocytes Relative 13.4 % LAB HEMETOLOGY METHOD 12/20/2024 6:30 AM [facility] Eosinophils Relative 2.1 % LAB HEMETOLOGY METHOD 12/20/2024 6:30 AM [facility] Basophils Relative 0.7 % LAB HEMETOLOGY METHOD 12/20/2024 6:30 AM EDT [facility] Immature Granulocytes Relative 0.4 % LAB HEMETOLOGY METHOD 12/20/2024 6:30 AM EDT [facility] Neutrophils Absolute 5.33 1.50 - 7.00 K/mcL LAB HEMETOLOGY METHOD 12/20/2024 6:30 AM EDT [facility] Lymphocytes Absolute 0.60(L) 1.00 - 5.00 K/mcL LAB HEMETOLOGY METHOD 12/20/2024 6:30 AM EDT [facility] Monocytes Absolute 0.95 0.20 - 1.00 K/mcL LAB HEMETOLOGY METHOD 12/20/2024 6:30 AM EDT [facility] Eosinophils Absolute 0.15 0.00 - 0.50 K/mcL LAB HEMETOLOGY METHOD 12/20/2024 6:30 AM EDT [facility] Basophils Absolute 0.05 0.00 - 0.20 K/mcL LAB HEMETOLOGY METHOD 12/20/2024 6:30 AM EDT [facility] Immature Granulocytes Absolute 0.03 0.00 - 0.03 K/mcL LAB HEMETOLOGY METHOD 12/20/2024 6:30 AM EDT [facility] Blood Venous blood specimen / Unknown Venipuncture / Unknown 12/20/2024 6:01 AM EDT 12/20/2024 6:15 AM EDT us Shellie HURTADO LAB BLOOD ORDERABLES Final R esult [facility] [address] [place] [address], * Magnesium (12/20/2024 6:01 AM EDT) Only the most recent of2 resultswithin the time period is included. Magnesium 2.5 1.9 - 2.6 mg/dL LAB CHEMISTRY METHOD 12/20/2024 7:56 AM EDT [facility] Blood Venous blood specimen / Unknown Venipuncture / Unknown 12/20/2024 6:01 AM EDT 12/20/2024 6:15 AM EDT us Shellie HURTADO LAB BLOOD ORDERABLES Final R esult [facility] [address] [place] [address], [place] [phone] * ECG-Annotated (12/20/2024) us Provider Onbase MD ECG ORDERABLES Final Result * (ABNORMAL) Arterial blood gas (12/19/2024 4:59 PM EDT) Only the most recent of2 resultswithin the time period is included. pH, Arterial 7.31(L) 7.35 - 7.45 pH [facility] pCO2, Arterial 79(HH) 35 - 45 mmHg 12/19/2024 5:16 PM [facility] pO2, Arterial 67(L) 80 - 100 mmHg 12/19/2024 5:16 PM [facility] HCO3, Arterial 32.8(H) 22.0 - 26.0 mmol/L 12/19/2024 5:16 PM T [facility] O2 Sat, Arterial 95.8 95.0 - 98.0 % 12/19/2024 5:16 PM [facility] Base Excess, Arterial 10.3(H) -2.0 - 2.0 mmol/L 12/19/2024 5:16 PM [facility] Estiven Test Pass Pass, Unresponsi ve, Line 12/19/2024 5:[facility] FIO2 40.00 12/19/2024 5:16 PM EDT [facility] Blood Arterial blood specimen / Unknown Arterial Puncture / Unknown 12/19/2024 4:59 PM EDT 12/19/2024 5:05 PM EDT us Nusrat HURTADO LAB BLOOD ORDERABLES Final Resul t [facility] [address] [place] [address], [place] [phone] * Respiratory virus panel molecular study (12/19/2024 6:51 AM EDT) Adenovirus Detection by PCR Not Detected Not Detected LAB MICROBIOLOGY METHOD 12/19/2024 9:11 AM EDT [facility] Influenza A PCR Not Detected Not Detected LAB MICROBIOLOGY METHOD 12/19/2024 9:11 AM EDT [facility] Influenza B PCR Not Detected Not Detected LAB MICROBIOLOGY METHOD 12/19/2024 9:11 AM EDT [facility] Coronavirus 229E Not Detected Not Detected LAB MICROBIOLOGY METHOD 12/19/2024 9:11 AM EDT [facility] Coronavirus HKU1 Not Detected Not Detected LAB MICROBIOLOGY METHOD 12/19/2024 9:11 AM EDT [facility] Coronavirus OC43 Not Detected Not Detected LAB MICROBIOLOGY METHOD 12/19/2024 9:11 AM EDT [facility] Coronavirus NL63 Not Detected Not Detected LAB MICROBIOLOGY METHOD 12/19/2024 9:11 AM EDT [facility] Parainfluenza Virus 1 Not Detected Not Detected LAB MICROBIOLOGY METHOD 12/19/2024 9:11 AM EDT [facility] Parainfluenza Virus 2 Not Detected Not Detected LAB MICROBIOLOGY METHOD 12/19/2024 9:11 AM EDT [facility] Parainfluenza Virus 3 Not Detected Not Detected LAB MICROBIOLOGY METHOD 12/19/2024 9:11 AM EDT [facility] Parainfluenza Virus 4 Not Detected Not Detected LAB MICROBIOLOGY METHOD 12/19/2024 9:11 AM EDT [facility] RSV PCR Not Detected Not Detected LAB MICROBIOLOGY METHOD 12/19/2024 9:11 [facility] Human Metapneumovirus A and B Not Detected Not Detected LAB MICROBIOLOGY METHOD 12/19/2024 9:11 AM EDT [facility] Rhinovirus/Entero virus Not Detected Not Detected LAB MICROBIOLOGY METHOD 12/19/2024 9:11 AM EDT [facility] Bordetella pertussis Not Detected Not Detected LAB MICROBIOLOGY METHOD 12/19/2024 9:11 AM [facility] Bordetella parapertussis Not Detected Not Detected LAB MICROBIOLOGY METHOD 12/19/2024 9:11 AM [facility] Mycoplasma pneumo by PCR Not Detected Not Detected LAB MICROBIOLOGY METHOD 12/19/2024 9:11 AM EDT [facility] Chlamydia pneumoniae Not Detected Not Detected LAB MICROBIOLOGY METHOD 12/19/2024 9:11 AM [facility] SARS COV-2 Not Detected Not Detected LAB MICROBIOLOGY METHOD 12/19/2024 9:11 AM [facility] Swab Nasopharyngeal structure / Unknown Non-blood Collection / Unknown 12/19/2024 6:51 AM EDT 12/19/2024 8:13 AM EDT [facility] - 12/19/2024 9:11 AM EDT Testing was performed using the Tagbrand Respiratory Pathogen PCR Assay. All results must [...] GENERAL ORDERABLES Final Result Performing Organization Address [facility]/ZIP Co de Phone Number [facility] [address] [place] [address], [place] [phone] * Blood Culture, Peripheral Draw #1 (12/19/2024 5:22 AM EDT) Only the most recent of2 resultswithin the time period is included. [facility] Culture, Blood No growth at 5 days LAB MICROBIOLOGY METHOD 12/24/2024 7:01 AM EDT [facility] Blood Venous blood specimen / Unknown Venipuncture / Unknown 12/19/2024 5:22 AM EDT 12/19/2024 6:07 AM EDT us Reyes Snider MD LAB MICROBIOLOGY - GENERAL ORDERABLES Final Result Performing Organization Address [facility] de Phone Number [facility] [address] [place] [address], [place] [phone] * Lactate, with reflex (12/19/2024 5:15 AM EDT) [facility] LACTIC ACID 0.7 0.4 - 2.0 mmol/L LAB CHEMISTRY METHOD 12/19/2024 6:27 AM EDT [facility] Blood Venous blood specimen / Unknown Venipuncture / Unknown 12/19/2024 5:15 AM EDT 12/19/2024 6:01 AM EDT us Reyes Snider MD LAB BLOOD ORDERABLES Final Result Performing Organization Address [facility] Co de Phone Number [facility] [address] [place] [address], [place] [phone] * Troponin I high sensitivity (12/19/2024 3:46 AM EDT) Only the most recent of2 resultswithin the time period is included. [facility] High Sensitivity Troponin I 11 <=79 ng/L LAB CHEMISTRY METHOD 12/19/2024 7:07 AM EDT [facility] Blood Venous blood specimen / Unknown Venipuncture / Unknown 12/19/2024 3:46 AM EDT 12/19/2024 6:37 AM EDT Narrative [facility] - 12/19/2024 7:07 AM EDT High levels of biotin in samples may falsely decrease hsTroponin values. ??Use caution when interpreting hsTroponin results in patients taking biotin who exhibit renal impairment (eGFR <60) or in patients taking more than 20 mg/day of biotin. us Reyes Snider MD LAB BLOOD ORDERABLES Final Result [facility] [address] [place] [address], * CT Angio Chest wo and/or w [...] Mckeon MD on 12/19/2024 04:25:57 Kim HURTADO [facility] CT PROCEDURES Final Result * ECG 12 lead (12/19/2024 2:09 AM EDT) Ventricular Rate ECG 77 BPM GEMUSE Atrial Rate 77 BPM GEMUSE P-R Interval 150 ms GEMUSE QRS Duration 98 ms GEMUSE Q-T Interval 354 ms GEMUSE QTc 400 ms GEMUSE P Wave Jerome 31 degrees GEMUSE R Jerome 102 degrees GEMUSE T Jerome 59 degrees GEMUSE ECG Interpretation Normal sinus [...] Signed Date: 12/19/2024 10:23 ET Workstation ID: [id number] Transcribed By: Self Edit Transcribed Date: 12/19/2024 [...] Signed Date: 12/19/2024 10:23 ET Workstation ID: [id number] Transcribed By: Self Edit Transcribed Date: 12/19/2024 10:16 ET us Reyes Snider MD IMG XR PROCEDURES Final Res ult * Procalcitonin (12/19/2024 1:58 AM EDT) Procalcitonin 0.05 <=0.16 ng/mL LAB CHEMISTRY METHOD 12/19/2024 8:55 AM EDT [facility] Blood Venous blood specimen / Unknown Venipuncture / Unknown 12/19/2024 1:58 AM EDT 12/19/2024 2:17 AM EDT Narrative [facility] - 12/19/2024 8:55 AM EDT [...] BLOOD ORDERABLES Final Result Performing Organization Address [facility] Co de Phone Number [facility] [address] [place] [address], * Prothrombin time with INR (12/19/2024 1:58 AM EDT) [facility] Protime 11.6 10.6 - 13.9 sec LAB COAGULATION METHOD 12/19/2024 2:24 AM EDT [facility] INR 0.9 LAB COAGULATION METHOD 12/19/2024 2:24 AM EDT [facility] Blood Venous blood specimen / Unknown Venipuncture / Unknown 12/19/2024 1:58 AM EDT 12/19/2024 2:17 AM EDT Kim HURTADO LAB BLOOD ORDERABLES Final Resu lt Performing Organization Address [facility]/ZIP Co de Phone Number [facility] [address] [place] [address], [place] [phone] * (ABNORMAL) C-reactive protein (12/19/2024 1:58 AM EDT) Pathologist [facility] C-Reactive Protein 9.40(H) <=0.50 mg/dL LAB CHEMISTRY METHOD 12/19/2024 5:17 AM EDT [facility] Blood Venous blood specimen / Unknown Venipuncture / Unknown 12/19/2024 1:58 AM EDT 12/19/2024 2:17 AM EDT Reyes Snider MD LAB BLOOD ORDERABLES Final Result Performing Organization Address [facility]/ZIP Co de Phone Number [facility] [address] [place] [address], [place] [phone] * B-type natriuretic peptide (12/19/2024 1:58 AM EDT) Pathologist [facility] BNP 44 <=100 pcg/mL LAB CHEMISTRY METHOD 12/19/2024 2:48 AM EDT [facility] Blood Venous blood specimen / Unknown Venipuncture / Unknown 12/19/2024 1:58 AM EDT 12/19/2024 2:17 AM EDT Kim HURTADO LAB BLOOD ORDERABLES Final Resu lt Performing Organization Address [facility] Co de Phone Number [facility] [address] [place] [address], [place] [phone] * Lipase (12/19/2024 1:58 AM EDT) [facility] Lipase 27 13 - 75 unit/L LAB CHEMISTRY METHOD 12/19/2024 2:40 AM EDT [facility] Blood Venous blood specimen / Unknown Venipuncture / Unknown 12/19/2024 1:58 AM EDT 12/19/2024 2:17 AM EDT Kim HURTADO LAB BLOOD ORDERABLES Final Resu lt Performing Organization Address [facility]/ZIP Co de Phone Number [facility] [address] [place] [address], [place] [phone] * (ABNORMAL) Hemoglobin A1c (12/19/2024 1:58 AM EDT) Hemoglobin A1C 7.2(H) <6.5 % LAB CHEMISTRY METHOD 12/19/2024 2:01 PM [facility] Mean Bld Glu Estim. 160 mg/dL LAB CHEMISTRY METHOD 12/19/2024 2:01 PM [facility] Blood Venous blood specimen / Unknown Venipuncture / Unknown 12/19/2024 1:58 AM EDT 12/19/2024 2:17 AM EDT us Reyes Snider MD LAB BLOOD ORDERABLES Final Result [facility] [address] [place] [address], * (ABNORMAL) Comprehensive metabolic panel (12/19/2024 1:58 AM EDT) Sodium 144 133 - 145 mmol/L LAB CHEMISTRY METHOD 12/19/2024 2:42 AM [facility] Potassium 4.8 3.5 - 5.5 mmol/L LAB CHEMISTRY METHOD 12/19/2024 2:42 AM [facility] Chloride 107 96 - 110 mmol/L LAB CHEMISTRY METHOD 12/19/2024 2:42 AM [facility] CO2 35(H) 21 - 32 mmol/L LAB CHEMISTRY METHOD 12/19/2024 2:42 AM [facility] Anion Gap 2(L) 3 - 11 LAB CHEMISTRY METHOD 12/19/2024 2:42 AM [facility] Glucose 95 70 - 100 mg/dL LAB CHEMISTRY METHOD 12/19/2024 2:42 AM [facility] BUN 30(H) 5 - 25 mg/dL LAB CHEMISTRY METHOD 12/19/2024 2:42 AM [facility] Creatinine 1.02 0.70 - 1.30 mg/dL LAB CHEMISTRY METHOD 12/19/2024 2:42 AM [facility] eGFR 75 >=60 mL/min/1. 73m2 LAB CHEMISTRY METHOD 12/19/2024 2:42 AM [facility] Comment:Calculation based on the??Chronic Kidney Disease Epidemiology Collaboration (CKD-EPI) equation refit??without adjustment for race. BUN/Creatinine Ratio 29.4 LAB CHEMISTRY METHOD 12/19/2024 2:42 AM [facility] Calcium 9.1 8.5 - 10.5 mg/dL LAB CHEMISTRY METHOD 12/19/2024 2:42 AM [facility] AST (SGOT) 11 10 - 42 unit/L LAB CHEMISTRY METHOD 12/19/2024 2:42 AM [facility] ALT (SGPT) 15 10 - 60 unit/L LAB CHEMISTRY METHOD 12/19/2024 2:42 AM [facility] Alkaline Phosphatase 80 42 - 121 unit/L LAB CHEMISTRY METHOD 12/19/2024 2:42 AM [facility] Total Protein 6.7 6.0 - 8.0 g/dL LAB CHEMISTRY METHOD 12/19/2024 2:42 AM [facility] Albumin 3.1(L) 3.2 - 5.0 g/dL LAB CHEMISTRY METHOD 12/19/2024 2:42 AM [facility] Total Bilirubin 0.3 0.0 - 1.4 mg/dL LAB CHEMISTRY METHOD 12/19/2024 2:42 AM [facility] Blood Venous blood specimen / Unknown Venipuncture / Unknown 12/19/2024 1:58 AM EDT 12/19/2024 2:17 AM EDT us Kim HURTADO LAB BLOOD ORDERABLES Final Resu lt [facility] [address] [place] [address], [place] [phone] from Last 3 Months Insurance MEDICARE [facility] MEDICAID - [place] Advance Directives Documents on File Type Date Recorded Patient 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
--- OUTSIDE RECORDS SUMMARY | 2025-01-31 11:47 | XMS_ITS ---
Author Organization [facility] Address [address] [facility] [place] [address] Care Team Providers Care Jd Edwards Name Role Phone Desiree Randall MD Primary Care Provider Deborah Villar Unavailable [phone] Allergies Allergen (clinical drug ingredient) Drug/Non Drug [...] 1 MG TAKE 2 TABLETS BY MO [facility] DAILY Oral for 90 Active Spiriva Respimat [...] Ordered Date Performed Result Body Sit e 00337-YOTFTLY NAIL, 6 OR MORE 08/30/2024 N/A 82319-QINJ SKIN LESIONS, 2 TO 4 08/30/2024 N/A Encounters Encounter Location Date Provider Diagnosis [facility] [address] [place] [address] 08/30/2024 Deborah Robles Type 2 diabetes mellitus with diabetic polyneuropathy E11.42 and Tinea unguium B35.1 Assessments Encounter Date Diagnosis (ICD Code) Assessment Notes Treatment Notes Treatment Clinical Notes Section Notes 08/30/2024 Type 2 diabetes mellitus with diabetic polyneuropathy (ICD-10 - E11.42) 08/30/2024 Tinea unguium (ICD-10 - B35.1) Plan Of Treatment Pending Test Test Name Order Date 36365-CEOCCMR NAIL, 6 OR MORE 08/30/2024 86247-HSMF SKIN LESIONS, 2 TO 4 08/30/20 24 Next Appt Details Follow Up: 3 Months, Reason: Provider Name:Deborah cartwright, 04/04/2025 03:15:00 PM, [address] [place] [address], [phone], Procedure Notes * Category Sub-Category Detail Notes [...] use of a nail nipper and/or dremel-type graphite grinder, to a more viable healthy nail [...] to maintain effectiveness in symptomatic relief - 14069 Keratoma Treatment Parring or Cutting o f [...] instrumentation by the physician of record - 92552 Progress Notes * Alpa PLUMMER:1945 (79 yo M)Acc No.[id number]:08/30/2024 Progress Note Patient:?Miki PLUMMER Provider:?Deborah Robles DPM :1945???Age:79 Y???Sex:Male Allen e:08/30/2024 Address:[address] [place] [address] [id number] Pcp:Desiree Randall MD Subjective: * Chief Complaints: [...] yes, 3. ?Exercise: yes, gardening, work on [employer]. ?Marital status: . ?Occupation: Retired- [employer]. * Medications:?TakingVoltaren 1 % Gel as [...] use of a nail nipper and/or dremel-type graphite grinder, to a more viable healthy nail [...] to maintain effectiveness in symptomatic relief - 32947.?Keratoma Treatment:?Parring or Cutting of Benign Hyperkeratotic Lesion(s)?(-56) [...] instrumentation by the physician of record - 05502.? * Procedure Codes:?24074 DEBRI DE NAIL, 6 OR MORE, Modifiers: XS 18983 TRIM SKIN LESIONS, 2 TO 4, Modifiers: XS * Follow Up:?3 Months * Images: * Sign off status: Completed true * Provider:?Deborah Robles DPM Date:?1 10/31/2023 Generated for Johan koehler/Billy/Shefaliitting on:?01/31/2025 11:46 AM EDT History and Physical [...]
--- OUTSIDE RECORDS SUMMARY | 2025-01-31 11:47 | XMS_ITS | Clinical Summary ---
Author Organization [facility] Address [address] [place] [address] Care Team Providers Care Geropsychologist Name Role Phone Desiree Randall MD Primary Care Provider Allergies Active Allergy Reactions Criticality Noted Date [...] age to complete this topic Care Teams Geropsychologist Relationship Specialty Start Date End Date Desiree Randall MD PCP - General District Claims Manager 04/22/17
--- OUTSIDE RECORDS SUMMARY | 2025-01-31 11:47 | XMS_ITS ---
Author Organization [facility] Address [address] [place] [address] Care Team Providers Care Personal Clothing Laundry Aide Name Role Phone Desiree Randall MD Primary Care Provider Deborah Villar [phone] REASON FOR VISIT QMB? Encounters Encounter Location Date Provider Diagnosis [address] [address] 01/04/2025 Deborah Robles Plan Of Treatment Next Appt Details Provider Name:Deborah cartwright, 04/04/2025 03:15:00 PM, [address] [place] [address], [phone], Progress Notes * Miki PLUMMERDOB:1945 (79 yo M)Acc No.[id number]:01/04/2025 Patient:?Miki PLUMMER :1945???Age:79 Y???Sex:Male Address:[place], [address] * true * Date:? Generated for Printi ng/Faxing/eTransmitting on:?01/31/2025 11:46 AM EDT
== END 2025-01-31 11:40 | disposition home or self-care (01) ==
LOC: HO.HMCC 10:13
PROVIDERS: PCP Internal Medicine; Visit Provider Internal Medicine
DX: J44.9 Chronic obstructive pulmonary disease, unspecified (principal); E11.9 Type 2 diabetes mellitus without complications; N18.30 Chronic kidney disease, stage 3 unspecified; I10 Essential (primary) hypertension

== ENCOUNTER → 2025-01-31 10:12 | Outpatient (BNVA) | payer MEDICARE, OTHER, SELFPAY | PROVIDERS: PCP Internal Medicine; Visit Provider Internal Medicine | DX: J44.9 Chronic obstructive pulmonary disease, unspecified (principal); I12.9 Hypertensive chronic kidney disease with stage 1 through stage 4 chronic kidney disease, or unspecified chronic kidney disease; E11.22 Type 2 diabetes mellitus with diabetic chronic kidney disease; N18.30 Chronic kidney disease, stage 3 unspecified | CPT/HCPCS: 96127; 99212 ==

== ENCOUNTER 2025-08-06 09:12 | Outpatient (REF) | payer MEDICARE, OTHER, SELFPAY ==
[2025-08-06 13:11] LABS: MANUAL DIFF FLAG NO
[2025-08-06 13:18] LABS: Hematocrit 44.9 % (42.0-52.0); Hemoglobin 14.2 g/dl (14.0-18.0); Imm Gran Abs Auto 0.04 X10*3/uL (0.00-0.03); Imm Gran Pct Auto 0.6 % (0.0-0.4); Lymphocytes Absolute Auto 0.9 X10*3/uL (1.2-4.9); Mean Corpuscular HGB Conc 31.6 g/dl (31.0-36.0); Mean Corpuscular Hemoglobin 31.4 pg (27.0-33.0); Mean Corpuscular Volume 99.3 fL (80.0-98.0); NRBC Abs Auto 0.000 X10*3/uL (0.0-0.012); NRBC Pct Auto 0.0 /100WBC (0.0-0.2); Platelet Count 205 X10*3/uL (160-400); Red Blood Count 4.52 X10*6/uL (4.60-5.80); White Blood Count 7.2 X10*3/uL (4.8-10.8)
[2025-08-06 14:30] LABS: Microalbum/Creatinine Ratio Ur 59.7 ug/mg cr (<30)
[2025-08-06 16:27] LABS: Alanine Aminotransferase 10 U/L (0-40); Albumin Level 4.1 g/dL (3.5-5.0); Alkaline Phosphatase 70 U/L (39-117); Anion Gap 11 (12-20); Aspartate Amino Transferase 16 U/L (5-37); Blood Urea Nitrogen 41 mg/dL (9-16); Calcium 9.3 mg/dL (8.4-10.2); Carbon Dioxide 35 mmol/L (22-29); Chloride 102 mmol/L (96-108); Estimated Glomerular Filt Rate 56; Potassium 4.3 mmol/L (3.3-5.1); Sodium 144 mmol/L (135-145); Total Protein 7.1 g/dL (6.5-8.0)
== END 2025-08-06 09:13 | disposition home or self-care (01) ==
LOC: HO.HMGCLDS 09:12
PROVIDERS: PCP Internal Medicine; Visit Provider Internal Medicine
DX: I12.9 Hypertensive chronic kidney disease with stage 1 through stage 4 chronic kidney disease, or unspecified chronic kidney disease (principal); E11.22 Type 2 diabetes mellitus with diabetic chronic kidney disease; N18.30 Chronic kidney disease, stage 3 unspecified; J44.9 Chronic obstructive pulmonary disease, unspecified; Z79.84 Long term (current) use of oral hypoglycemic drugs; Z79.899 Other long term (current) drug therapy; Z99.81 Dependence on supplemental oxygen
CPT/HCPCS: 36415; 80053; 82043; 82570; 83036; 85025; 99212

== ENCOUNTER 2025-08-06 09:12 | Outpatient (AMB) | payer MEDICARE, OTHER, SELFPAY ==
[2025-08-06 09:19] VITALS: BP 120/72; PULSE 82; RESP 18; TEMP 36.7; O2SAT 95; BMI 28.1
--- NOTE | 2025-08-06 09:19 | A.OFFPC_ITS ---
Vital Signs 08/06/25 09:19 Height 5 ft 5 in Weight 169 lb BMI 28.1 BP 120/72 Blood Pressure Location Lt brachial Position Sitting Respiration 18 Pulse 82 Pulse Source Pulse Oximeter Temp 98.1 F Temp Source Oral Pulse Oximetry (%) 95 Oxygen Delivery Method Nasal Cannula Intake Visit Reasons: 6 months follow up Intake Note: Pt is here today for 6 months follow up visit. Allergies cephalexin Allergy (Unknown, Verified 08/06/25 09:22) itchy all over body morphine Allergy (Unknown, Verified 08/06/25 09:22) Agitated Tobacco use date assessed: 08/06/25 Last assessed Fall Risk: 08/06/25 Dental Screening Dental Screen Date: 08/01/24 HPI 6 months follow up HPI Details Patient presents for the follow-up of O2 dependent COPD, hypertension type 2 diabetes controlled on current medications [facility] Medical History Carotid artery bruit Type 2 diabetes mellitus CKD (chronic kidney disease), stage III Kyphoscoliosis History of ITP Gout BPH (benign prostatic hyperplasia) HTN (hypertension) Gallstones GERD (gastroesophageal reflux disease) Lung nodules COPD (chronic obstructive pulmonary disease) Surgical History History of colectomy Family History Mother No problems noted. Son No problems noted. Son No problems noted. Daughter No problems noted. Father Diabetes Social History Housing: House Alcohol intake: current Alcohol intake frequency: holidays/special occasions only Patient Tobacco Use Status: Former Tobacco user Years Smoked: 10 e-Cigarette/Vaping Use: Never Used service: No Current occupational status: retired Cognitive needs: No Hearing needs: Yes Vision needs: Yes Questionnaire Thrive Questionnaire Date Thrive assessed: 01/31/25 I am a: Patient What is your living situation today?: I have a steady place to live Within the past 12 months, did the food you bought not last and you didn't have the money to get more?: Never true Within the past 12 months, did you worry whether your food would run out before you got money to buy more?: Never true Do you have trouble paying for medicines?: No Do you have trouble getting transportation to medical appointments?: No Do you have trouble paying your heating and electricity bill?: No Do you have trouble taking care of your child, family member or friend?: No Do you have trouble with day-to-day activities such as bathing, preparing meals, shopping, managing finances, etc.?: No Are you currently unemployed and looking for a job?: No Are you interested in more education?: No Please select the resources that you would like help with: None Currently or been in a relationship where the following occur: No concerns reported THRIVE Score: 0 KAYLYNN-7 AMB Questionnaire KAYLYNN-7 Date KAYLYNN - 7 assessed: 08/01/24 Source: Developed by Drs. Andrew Cordero, Valeri Moscoso, Rafael Washington and colleagues, with an educational surinder from [employer]. Review of Systems Const All systems reviewed & are unremarkable except as noted in HPI and below Eyes Reports no additional complaints ENT Reports no additional complaints Card Reports no additional complaints Resp Reports no additional complaints GI Reports no additional complaints Reports no additional complaints Physical exam (Primary Care) Vital Signs: Last Vital Signs Temp 98.1 F 08/06/25 09:19 Pulse 82 08/06/25 09:19 Resp 18 08/06/25 09:19 BP 120/72 08/06/25 09:19 Pulse Ox 95 08/06/25 09:19 Oxygen Delivery Method Nasal Cannula 08/06/25 09:19 BMI result Body Mass Index 28.1 Tobacco/Smoking Status: Tobacco use Status Tobacco use date assessed 08/06/25 08/06/25 09:25 Patient Tobacco Use Status Former Tobacco user 08/06/25 09:25 e-Cigarette/Vaping Use Never Used 08/06/25 09:25 Thrive Assessment: Date of Thrive Assessment Date Thrive assessed 01/31/25 08/06/25 09:25 Currently or been in a relationship where the following occur: No concerns reported Const General: no acute distress HENMT Head: Yes normal to inspection Throat: Yes posterior oropharynx normal Resp Other: Severe kyphoscoliosis Effort & Inspection: normal respiratory effort Auscultation: diminished lung sounds Cardio Rhythm: regular rhythm Heart sounds: S1 normal heart sound present and S2 normal heart sound present GI Inspection: Yes normal to inspection Palpation (GI): Soft to palpation Percussion: Yes normal to percussion Auscultation: normal bowel sounds Extrem Other: 1+ pitting edema bilaterally Coding Level of Care Code Complex visit Add On G2211 Diagnoses HTN (hypertension) I10 Type 2 diabetes mellitus E11.9 CKD (chronic kidney disease), stage III N18.30 COPD (chronic obstructive pulmonary disease) J44.9 Assessment & Plan Assessment & Plan (1) HTN (hypertension): Comment: BP goal less then 130/80 Code(s): I10 - Essential (primary) hypertension Category: Medical Plan: Continue current medications (2) Type 2 diabetes mellitus: Comment: A1C goal less than 7 Code(s): E11.9 - Type 2 diabetes mellitus without complications Category: Medical Plan: Patient will have a blood work today. Continue metformin ADA diet regular physical activity (3) CKD (chronic kidney disease), stage III: Code(s): N18.30 - Chronic kidney disease, stage 3 unspecified Category: Medical Plan: Monitor renal function avoid nephrotoxins (4) COPD (chronic obstructive pulmonary disease): Comment: Dr. Ervin PFT 06/27 moderate obstruction, severe restriction due to kyphoscoliosis, on supplemental O2 24 hours a day Code(s): J44.9 - Chronic obstructive pulmonary disease, unspecified Category: Medical Plan: Continue current treatment including supplemental O2 and inhalers follow-up with pulmonology Orders: Orders Lipid Panel 6 Months E11.9 - Type 2 diabetes mellitus without complications, I10 - Essential (primary) hypertension, J44.9 - Chronic obstructive pulmonary disease, unspecified, N18.30 - Chronic kidney disease, stage 3 unspecified Hemoglobin A1c 6 Months E11.9 - Type 2 diabetes mellitus without complications, I10 - Essential (primary) hypertension, J44.9 - Chronic obstructive pulmonary disease, unspecified, N18.30 - Chronic kidney disease, stage 3 unspecified Comprehensive Met. Panel Today E11.9 - Type 2 diabetes mellitus without complications, I10 - Essential (primary) hypertension, J44.9 - Chronic obstructive pulmonary disease, unspecified, N18.30 - Chronic kidney disease, stage 3 unspecified Hemoglobin A1c Today E11.9 - Type 2 diabetes mellitus without complications, I10 - Essential (primary) hypertension, J44.9 - Chronic obstructive pulmonary disease, unspecified, N18.30 - Chronic kidney disease, stage 3 unspecified Microalbumin, Random (w Creat) Today E11.9 - Type 2 diabetes mellitus without complications, I10 - Essential (primary) hypertension, J44.9 - Chronic obstructive pulmonary disease, unspecified, N18.30 - Chronic kidney disease, stage 3 unspecified Complete Blood Count Auto Diff Today E11.9 - Type 2 diabetes mellitus without complications, I10 - Essential (primary) hypertension, J44.9 - Chronic obstructive pulmonary disease, unspecified, N18.30 - Chronic kidney disease, stage 3 unspecified Comprehensive [place]. Panel Fast 6 Months E11.9 - Type 2 diabetes mellitus without complications, I10 - Essential (primary) hypertension, J44.9 - Chronic obstructive pulmonary disease, unspecified, N18.30 - Chronic kidney disease, stage 3 unspecified Microalbumin, Random (w Creat) 6 Months E11.9 - Type 2 diabetes mellitus without complications, I10 - Essential (primary) hypertension, J44.9 - Chronic obstructive pulmonary disease, unspecified, N18.30 - Chronic kidney disease, stage 3 unspecified
--- OUTSIDE RECORDS SUMMARY | 2025-08-06 10:14 | XMS_ITS | Clinical Summary ---
Author Organization [facility] Address [address] [place] [address] Care Team Providers Care Range Technician Name Role Phone Desiree Randall MD Primary Care Provider [phone] Allergies Active Allergy Reactions Criticality Noted Date [...] 75 05/29/2020 10:31 AM EDT Temperature 36.9 C (98.4 F) 05/29/2020 10:31 AM EDT Respiratory Rate - - Oxygen Saturation - - Inhaled Oxygen Concentration - - Weight 83.9 kg (185 lb) 05/29/2020 10:27 AM EDT Height 165.1 cm (5' 5 ) 05/29/2020 10:27 AM EDT Body Mass Index 30.79 05/29/2020 10:27 AM EDT Plan of Treatment Health Maintenance Due Date Last Done Comments COVID-19 Vaccine (#1) 1945 Depression Screening 1957 Preventative Health Evaluation 1963 DTap / Tdap / Td (1 - Tdap) 1964 Shingrix-Zoster Vaccine (1 of 2) 1995 Fall Risk Assessment 2010 Pneumococcal Vaccine (1 of 1 - PCV) 2010 RSV Adult > 60+ Yrs or Pregn ant (1 - 1-dose 75+ series) 2020 Influenza Vaccine (#1) 2025 Hepatitis B Vaccines Aged Out No long er eligible based on patient's age to complete this topic RSV Ped < 20 months Aged Out No longe r eligible based on patient's age to complete this topic Care Teams Range Technician Relationship Specialty Start Date End Date Desiree Randall MD PCP - General Pensionholder Information Clerk 04/22/17
--- OUTSIDE RECORDS SUMMARY | 2025-08-06 10:14 | XMS_ITS | Patient Health Record ---
Author Organization [facility] Address [address] [facility] [place] [address] Care Team Providers Care Manufacturing Associate Name Role Phone Desiree Randall MD Primary Care Provider Deborah Villar Unavailable [phone] Allergies Allergen (clinical drug ingredient) Drug/Non Drug [...] Duration) Notes Start Date End Date Status amLODIPine Besylate 5 MG 1 tablet Orally Once a day Not-Taking Fluoxetine Not-Takin g Advair Diskus 500-50 MCG/ACT 1 puff Inhalation Twice a day Active Finasteride Not-Taki ng Voltaren 1 % as directed Externally Active PriLOSEC Not-Taking Allopurinol 100 MG TAKE 1 TABLET BY DAILY Oral; Duration: 90 Active Albuterol Sulfate HFA 108 (90 Base) MCG/ACT INHALE 2 PUFFS BY MOUTH EVERY 4 TO 6 HOURS NEEDED Inhalation; Duration: 50 Active Trulicity Active Spiriva Respimat 2.5 MCG/ACT Inhalation; Duration: 30 Act eugene Advair Diskus 100-50 MCG/DOSE 1 puff Inhalation Twice a day Not-Taking Colcrys 0.6 MG 1 tablet Orally Once a day; Duration: 30 day(s) 01/05/2013 Not-Rayshawn ing MiraLax 1 packet mixed with 8 ounces of fluid Orally Once a day Not-Taking Combivent 18-103 MCG/ACT 2 puffs Inhalat ion Four times a day Not-Taking Mupirocin 2 % External; Duration: 10 Active Mometasone Furoate 0.1 % APPLY TO AREAS ON ARMS TWICE DAILY NEEDED Diagnosis Unavailable External; Duration: 20 Active Restasis Active Omeprazole 20 MG Oral; Duration: 90 Active rOPINIRole HCl 1 MG TAKE 2 TABLETS BY MO [facility] DAILY Oral; Duration: 90 Active Wellbutrin 100 MG 1 tablet Orally Thre e times a day; Duration: 30 day(s) Not-Taking busPIRone HCl 5 MG TAKE 1 TABLET BY JENNY THREE TIMES DAILY Diagnosis Unavailable Oral; Duration: 90 Active Furosemide 20 MG Oral; Duration: 90 Active Colchicine 0.6 MG Oral; Duration: 30 Active metFORMIN HCl ER 750 MG TAKE 2 TABLETS B Y MOUTH DAILY Oral; Duration: 90 Active ProAir HFA Active Immunizations Vaccine Route Administration Date Status Comme nts Influenza Unknown 02/25/2022 Refused Influenza Unknown 05/14/2023 Administered Influenza Unknown 06/13/2024 Administered Influenza Unknown 06/14/2025 Administered COVID-19 Pfizer BioNTech Vaccine Unknown 10/06/2021 Administered 1st 10/23/20 2nd 11/13/20 3rd 04/29/21 Social History Tobacco Use: Social History Observation [...] Problem Acquired hammer toe of right foot (6094746186232618 ) Other hammer toe(s) (acquired), right foot (M20.41) Active confirmed Response to treatment, Improvemen t Problem Acquired hammer toe of left foot (2016791664753875 ) Other hammer toe(s) (acquired), left foot (M20.42) Active confirmed Response to treatment, Improvemen t Problem Polyneuropathy due to type 2 diabetes mellitus (025444972) Type 2 diabetes mellitus with diabetic polyneuropathy (E11.42) Active confirmed Vital Signs Blood pressure diastolic 65 mm Hg 07/05/2025 Height 5 ft 5 in in 07/05/2025 Blood pressure systolic 130 mm Hg 07/05/2025 Weight 175 lbs 07/05/2025 BMI 29.12 kg/m2 07/05/2025 Procedures Procedure Date Ordered Date Performed Result Body Sit e 09154-BJDSLZR NAIL, 6 OR MORE 08/30/2024 N/A 63528-NHCH SKIN LESIONS, 2 TO 4 08/30/2024 N/A 23158-UQYPTLW NAIL, 6 OR MORE 01/04/2025 N/A 13798-NEWX SKIN LESIONS, 2 TO 4 01/04/2025 N/A 59486-EOETUVP NAIL, 6 OR MORE 04/04/2025 N/A 45297-XSPU SKIN LESIONS, 2 TO 4 04/04/2025 N/A 68724-OAPGRED NAIL, 6 OR MORE 07/05/2025 N/A 84784-EPFN SKIN LESIONS, 2 TO 4 07/05/2025 N/A Encounters Encounter Location Date Provider Diagnosis [address] [address] 08/30/2024 Deborah Robles Type 2 diabetes mellitus with diabetic polyneuropathy E11.42 and Tinea unguium B35.[address] [address] 01/04/2025 Deborah Robles Type 2 diabetes mellitus with diabetic polyneuropathy E11.42 ; Tinea unguium B35.1 ; Other hammer toe(s) (acquired), right foot M20.41 and Other hammer toe(s) (acquired), left foot M20.[address] [address] 04/04/2025 Deborah Robles Type 2 diabetes mellitus with diabetic polyneuropathy E11.42 and Tinea unguium B35.[address] [address] 07/05/2025 Deborah Robles Type 2 diabetes mellitus with diabetic polyneuropathy E11.42 and Tinea unguium B35.1 [facility] [address] [place] [address] 01/04/2025 Deborah Robles Assessments Encounter Date Diagnosis (ICD Code) Assessment Notes Treatment Notes Treatment Clinical Notes Section Notes 04/04/2025 Type 2 diabetes mellitus with diabetic polyneuropathy (ICD-10 - E11.42) 04/04/2025 Tinea unguium (ICD-10 - B35.1) 08/30/2024 Type 2 diabetes mellitus with diabetic polyneuropathy (ICD-10 - E11.42) 08/30/2024 Tinea unguium (ICD-10 - B35.1) 07/05/2025 Type 2 diabetes mellitus with diabetic polyneuropathy (ICD-10 - E11.42) 01/04/2025 Type 2 diabetes mellitus with diabetic polyneuropathy (ICD-10 - E11.42) 01/04/2025 Tinea unguium (ICD-10 - B35.1) 07/05/2025 Tinea unguium (ICD-10 - B35.1) 01/04/2025 Other hammer toe(s) (acquired), right foot (ICD-10 - M20.41) Patient Educated with: DIABETIC FOOT CARE INSTRUCTIONS. pdf (DIABETIC FOOT CARE INSTRUCTIONS. pdf) 01/04/2025 Other hammer toe(s) (acquired), left foot (ICD-10 - M20.42) Plan Of Treatment Pending Test Test Name Order Date X ray : Foot, left 2V 01/05/2013 X ray : Foot, right 2V 01/05/2013 X ray : Foot, left 3V 02/25/2022 07785-NMPFFYK NAIL, 6 OR MORE 08/30/2024 62904-SFGVVHM NAIL, 6 OR MORE 01/04/2025 90403-ZKPOFOL NAIL, 6 OR MORE 04/04/2025 82790-MOVWYPO NAIL, 6 OR MORE 07/05/2025 09659-JVAFAIY NAIL, 1-5 02/25/2022 91244-SYXZ SKIN LESIONS, OVER 4 02/26/20 22 13219-JCZZ SKIN LESIONS, OVER 4 01/15/20 15 13629-DLNW SKIN LESIONS, OVER 4 01/13/20 16 11170-HGWU SKIN LESIONS, OVER 4 10/13/19 22 64245-AVTT SKIN LESIONS, 2 TO 4 01/16/20 14 66788-RVZW SKIN LESIONS, 2 TO 4 03/02/20 24 28196-RNBG SKIN LESIONS, 2 TO 4 01/05/20 25 95534-YRCM SKIN LESIONS, 2 TO 4 08/30/20 24 29464-NSYU SKIN LESIONS, 2 TO 4 07/05/20 25 37773-TEAZ SKIN LESIONS, 2 TO 4 04/04/20 25 S7360-TIHSGTJY DYSTROPHIC NAILS ANY # D7875-YKJDYRMV DYSTROPHIC NAILS ANY # 88735-VADOFMSF OF HEMATOMA/FLUID 023 Next Appt Details Provider Name:Deborah Barone gabbie, 10/10/2025 03:00:00 PM, [address] [facility], [place], [address], Insurance Providers Payer Name Payer Address Payer Phone Subscriber Number Group Number Insured Name Patient Relationship to Insured Coverage Start Date Coverage End Date Medicare National Govt [facility] [address] [place] [address] [id number] Miki Plummer Self - patient is the insured [facility] [address] [place] [address] [phone] [id number] Miki Plummer Self - patient is the insured Medical (General) History Medical History History ICD Code diverticulosis gall bladder problems Gout hypertension keloids lung disease macular degeneration reflux chicken pox measles mumps transfusions emphysema colostomy Cataracts Kidney disease type II diabetes Surgical History Surgery Date(Month/Year) Hospitalization History Reason Date(Month/Year) [facility] Pneumonia 12/12/2024
== END 2025-08-06 09:43 | disposition home or self-care (01) ==
LOC: HO.HMCC 09:13
PROVIDERS: PCP Internal Medicine; Visit Provider Internal Medicine
DX: I12.9 Hypertensive chronic kidney disease with stage 1 through stage 4 chronic kidney disease, or unspecified chronic kidney disease (principal); E11.9 Type 2 diabetes mellitus without complications; N18.30 Chronic kidney disease, stage 3 unspecified; J44.9 Chronic obstructive pulmonary disease, unspecified